=== PATIENT | male | born 1980 ===

== ENCOUNTER → 2020-11-03 08:25 | Outpatient (BNVA) | payer BC, SELFPAY | PROVIDERS: PCP Internal Medicine; Visit Provider Psychiatry & Neurology Neurology ==

== ENCOUNTER → 2021-05-04 08:22 | Outpatient (BNVA) | payer BC, SELFPAY | PROVIDERS: PCP Internal Medicine; Visit Provider Psychiatry & Neurology Neurology ==

== ENCOUNTER → 2021-08-24 13:16 | Outpatient (BNVA) | payer SELFPAY | PROVIDERS: PCP Internal Medicine; Visit Provider Internal Medicine | DX: Z02.79 Encounter for issue of other medical certificate (principal) ==

== ENCOUNTER → 2021-12-22 15:45 | Outpatient (BNVA) | payer BC, SELFPAY | PROVIDERS: PCP Internal Medicine; Referring Provider Internal Medicine; Visit Provider Surgery | DX: L98.9 Disorder of the skin and subcutaneous tissue, unspecified (principal) ==

== ENCOUNTER 2022-01-19 10:55 | Outpatient (REF) | payer BC, SELFPAY | END 2022-01-19 10:56 | disposition home or self-care (01) | LOC: HO.LAB 10:55 | PROVIDERS: PCP Internal Medicine; Visit Provider Surgery | DX: L98.9 Disorder of the skin and subcutaneous tissue, unspecified (principal) | CPT/HCPCS: 11403; 11421; 11422; 88305 ==

== ENCOUNTER 2022-03-26 04:55 | Emergency (ER) | payer BC, SELFPAY ==
[2022-03-26 05:04] VITALS: BP 161/108; PULSE 88; RESP 16; TEMP 37.1; O2SAT 97; BMI 42.3
--- NOTE | 2022-03-26 06:03 | ED.EAR ---
HPI - Ear Problem General Chief complaint: Ear Problems Stated complaint: R ear pain (pool water) & sore throat Time Seen by Provider: 03/26/22 05:41 Source: patient Mode of arrival: ambulatory Limitations: no limitations History of Present Illness HPI Narrative: Patient comes to the emergency room complaining of right ear discomfort. Patient states that he has no pain. Patient has a watery sensation moving around his ear. Patient went swimming 4 days ago. Patient denies fever or chills Related Data Previous Rx's Medication Instructions Recorded hydrochlorothiazide 25 mg tablet 25 mg PO DAILY #90 tabs 03/25/21 lisinopril 40 mg tablet 40 mg PO DAILY #90 tabs 03/25/21 carbamide peroxide 6.5 % ear drops 5 drp otic (ear) right Q12H 4 days 03/26/22 (Ear Wax Removal Drops) #15 mL Allergies Allergy/AdvReac Type Severity Reaction Status Date / Time cashew nut [CASHEW NUT] Allergy Severe ANAPHYLAXIS Verified 03/26/22 05:08 nut - unspecified Allergy Severe ANAPHYLAXIS Verified 03/26/22 05:08 [NUT - UNSPECIFIED] FROM UNKNONW NUT Review of Systems Review of Systems: Constitutional : No Weight loss, No Fever, No Chills, No Night Sweats, No Fatigue, No Malaise ENT/Mouth : No Hearing loss, No Ear Pain, No Nasal Congestion, No Sinus Pain, No Hoarseness, No sore throat, No Rhinorrhea, No Swallowing Difficulty, complaining of ear sensation in the right ear with no pain Eyes: No Eye Pain, No Swelling, No Redness, No Foreign Body, No Discharge, No Vision Changes Cardiovascular : No Chest Pain, No SOB, No Dyspnea on Exertion, No Orthopnea, No Edema, No Palpitations Respiratory : No Cough, No Sputum, No Wheezing, No Smoke Exposure, No Dyspnea Gastrointestinal : No Nausea, No Vomiting, No Diarrhea, No Constipation, No abdominal Pain, No Hematochezia, No Melena Genitourinary : no irregular bleeding, No Dysuria, No Urinary Frequency, No Hematuria, No Urinary Incontinence, No Urgency, No Flank Pain, No Urinary Flow Changes, No Hesitancy Musculoskeletal : No joint pain, No Myalgias, No Joint Swelling Skin : No Skin Lesions, No rash Neuro : No Weakness, No Numbness, No Paresthesias, No Loss of Consciousness, No Dizziness, No Headache Psych : No Anxiety/Panic, No Depression, No SI/HI/AH/VH, No Social Issues, Heme/Lymph: No Bruising, No Bleeding,No Lymphadenopathy Endocrine : No Polyuria, No Polydipsia, No Temperature Intolerance [facility], [facility] Past Medical History Medical History Hypertension Morbid obesity Skin lesions Surgical History History of surgical removal of skin lesion Family History Family History Father Diabetes Mother No problems noted. Social History Social History Housing: Apartment Alcohol intake: current Alcohol intake frequency: a few times a month Patient Tobacco Use Status: Current someday Tobacco user Tobacco use type: Cigarette e-Cigarette/Vaping Use: Never Used Second Hand Smoke Exposure: No Advance Directives: No Advance Directives Information Provided: Yes service: No Current occupational status: employed Cognitive needs: No Hearing needs: No Vision needs: No Physical Exam Vital Signs: Vital Signs: Last Vital Signs Temp 98.7 F 03/26/22 05:04 Pulse 88 03/26/22 05:04 Resp 16 03/26/22 05:04 BP 161/108 H 03/26/22 05:04 Pulse Ox 97 03/26/22 05:04 O2 Del Method 03/26/22 05:04 BMI result Body Mass Index 42.3 Const: Other: Appearance: Alert. Oriented X3. No acute distress. Eyes: Pupils equal, round and reactive to light. ENT: Pharynx normal. Left ear canal within normal limits. Right ear canal there is a large amount of cerumen obstructing the whole ear canal. Neck: Normal inspection. Neck supple. No lymph nodes noted. No crepitus CVS: Normal heart rate and rhythm. Pulses normal. Normal S1 and S2 Respiratory: No respiratory distress. Breath sounds normal. No Wheezing. No rales Abdomen: Soft and nontender. No rigidity. No distention. Skin: Skin warm and dry. Normal skin color. Normal skin turgor. Extremities: No lower extremity edema. No Lacerations. No Rash Neuro: Oriented X 3. No motor deficit. No sensory deficit. Moving all extremities. No slurred speech. CN 2 through 12 grossly intact Psych: calm, cooperative, normal affect Course Course Course Narrative: We removed a large amount of cerumen. However, plug of cerumen remains, very dry, difficult to remove. I discussed with the patient that he would be better if he uses Debrox for a few days, then follow up with his primary care physician to have the cerumen removed, then the tympanic membrane can be better visualized. At this time, I do not suspect that the patient has an infection, the ear canal itself looks pink, non erythematous, Discharge Plan Discharge Clinical Impression: Discomfort of right ear Patient Disposition: Home, Self-Care Instructions: Earache (ED) Additional Instructions: Please follow-up with your primary care physician tomorrow. If you have any worsening or new symptoms, please return to the emergency room or call 911 Prescriptions: New Ear Wax Removal Drops 6.5 % drops 5 drp otic (ear) right Q12H 4 Days Qty: 15 0RF No Action hydrochlorothiazide 25 mg tablet 25 mg PO DAILY Qty: 90 8RF lisinopril 40 mg tablet 40 mg PO DAILY Qty: 90 8RF
[2022-03-26 06:12] VITALS: BP 138/78; PULSE 86; RESP 16; TEMP 36.8; O2SAT 98
== END 2022-03-26 06:13 | disposition home or self-care (01) ==
PROVIDERS: Emergency Provider Emergency Medicine; PCP Internal Medicine
DX: H92.01 Otalgia, right ear (principal); H61.21 Impacted cerumen, right ear; F17.210 Nicotine dependence, cigarettes, uncomplicated
CPT/HCPCS: 69209; 99283; 99284

== ENCOUNTER 2022-10-22 13:05 | Emergency (ER) | payer BC, SELFPAY ==
--- NOTE | ~2022-10-22 | XR_ITS ---
EXAMINATION: XR CHEST CLINICAL INFORMATION: Shortness of breath COMPARISON: None TECHNIQUE: 2 views of the chest were obtained. FINDINGS: The cardiac silhouette is normal. There is mild diffuse bronchial wall thickening. There are no areas of consolidation. There are no pleural effusions or pneumothoraces. The bones and soft tissues are unremarkable for the patient's age. XR/XR chest 2V IMPRESSION: Bronchial wall thickening may be infectious and/or inflammatory in etiology.
[2022-10-22 13:18] VITALS: BP 144/100; PULSE 96; O2SAT 99
[2022-10-22 13:23] VITALS: BP 144/85; PULSE 94; RESP 22; TEMP 36.3; O2SAT 96; BMI 46.0
--- NOTE | 2022-10-22 13:28 | ECG_ITS ---
Test Reason : chest pain/sob Blood Pressure : / mmHG Vent. Rate : 095 BPM Atrial Rate : 095 BPM P-R Int : 162 ms QRS Dur : 082 ms QT Int : 354 ms P-R-T Axes : 057 021 033 degrees QTc Int : 444 ms Normal sinus rhythm Normal ECG No previous ECGs available Referred By: Di Fernandez Electronically Signed By:LUNA MORALEZ
--- NOTE | 2022-10-22 13:38 | ED.SOB ---
HPI - SOB/Dyspnea General Chief Complaint: Dyspnea Stated Complaint: SOB ON EXERTION FROM WALKIN CLINIC PER EMS Time Seen by Provider: 10/22/22 13:37 Source: patient, EMS and old records reviewed Mode of arrival: EMS Limitations: no limitations History of Present Illness HPI Narrative: 42-year-old male with history of morbid obesity, RAE, HTN who presents to the ER for evaluation of dyspnea on exertion for the last 1 week. He was seen at an urgent care on Monday where he had a negative chest x-ray was prescribed steroid taper and another medication that is 3 times a day, he cannot recall what it is. He states he is having ongoing shortness of breath with exertion. He reports burning heartburn type pains that come and go as well. No radiation of the pain, nausea or vomiting. He is coughing up phlegm at times. He denies any fever or chills. He is a former smoker. He denies any lower extremity swelling or pain. MD elicited complaint: shortness of breath Onset (ago): week(s) (1) Context: recent illness Timing: intermittent Severity: moderate Exacerbating factors: exertion Relieving factors: rest Associated symptoms: cough, sputum production and chest congestion Treatment prior to arrival: none Related Data Home oxygen amount: none Previous Rx's Medication Instructions Recorded carbamide peroxide 6.5 % ear drops 5 drp otic (ear) right Q12H 4 days 03/26/22 (Ear Wax Removal Drops) #15 mL hydrochlorothiazide 25 mg tablet 25 mg PO DAILY #90 tabs 04/03/22 lisinopril 40 mg tablet 40 mg PO DAILY #90 tabs 04/03/22 Allergies Allergy/AdvReac Type Severity Reaction Status Date / Time cashew nut [CASHEW NUT] Allergy Severe ANAPHYLAXIS Verified 03/26/22 05:08 nut - unspecified Allergy Severe ANAPHYLAXIS Verified 03/26/22 05:08 [NUT - UNSPECIFIED] FROM UNKNONW NUT Review of Systems Review of Systems: Yes all other systems are reviewed and are negative PMFSH Past Medical History Medical History Hypertension Morbid obesity Skin lesions Surgical History History of surgical removal of skin lesion Family History Family History Father Diabetes Mother No problems noted. Social History Social History Housing: Apartment Alcohol intake: current Alcohol intake frequency: a few times a week Patient Tobacco Use Status: Current someday Tobacco user Tobacco use type: Cigarette Smoked in Last 30 Days: No e-Cigarette/Vaping Use: Never Used Second Hand Smoke Exposure: No Use of substances other than those prescribed or required for medical reasons: No Advance Directives: No Advance Directives Information Provided: No service: No Current occupational status: employed Cognitive needs: No Hearing needs: No Vision needs: No Physical Exam Vital Signs: Vital Signs: Last Vital Signs Temp 97.8 F 10/22/22 15:43 Pulse 91 10/22/22 15:43 Resp 19 10/22/22 15:43 BP 148/87 H 10/22/22 15:43 Pulse Ox 93 10/22/22 16:01 O2 Del Method 10/22/22 15:43 BMI result Body Mass Index 46.0 Appearance: Alert. Oriented X3. No acute distress. Eyes: Pupils equal, round and reactive to light. ENT: Pharynx normal. Neck: Normal inspection. Neck supple. CVS: Normal heart rate and rhythm. Pulses normal. Respiratory: No respiratory distress. Breath sounds normal. Abdomen: Soft and nontender. +BS x4 Skin: Skin warm and dry. Normal skin color. Normal skin turgor. No rashes. Extremities: No lower extremity edema. Negative Kevin's sign. Neuro: Oriented X 3. No motor deficit. No sensory deficit. Course Reevaluation(s) Reevaluation #1: Ambulated on room air SpO2 97-93% at the end with some mild dyspnea but no increased work of breathing Medical Decision Making Medical Decision Making MDM Narrative: 42-year-old male presents to the ER for evaluation of shortness of breath on exertion. He is hemodynamically stable and satting well. He has no wheezes on his pulmonary exam. His chest x-ray was reviewed and was negative for pneumonia or any acute process. 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 D-dimer was negative. No clinical evidence of DVT at this time. He passed an ambulatory trial. No hypoxia. He is overweight which may be contributing. He has had recent illnesses with decrease in his physical activity leading to deconditioning. He was advised to slowly increase his physical activity as tolerated follow-up with his primary care doctor. He will continue with previously prescribed medications from the urgent care clinic. He will start to use his previously prescribed albuterol inhaler. Comfortable discharge home with outpatient follow-up. Return precautions discussed. Differential Diagnosis Differential Diagnoses: The differential diagnosis associated with the presentation includes pneumonia, bronchitis, pneumonitis, pleural effusion, ACS or PE less likely Lab Data MDM Lab Attestation statement: I reviewed the patient's lab results. No leukocytosis, no major metabolic derangement. troponin, BNP, D-dimer all unremarkable 10/22/22 14:15 10/22/22 14:15 Labs: Lab Results 10/22/22 10/22/22 10/22/22 Range/Units 14:15 14:15 14:15 WBC 9.4 (4.8-10.8) X10*3/uL RBC 5.59 (4.60-5.80) X10*6/uL Hgb 16.7 (14.0-18.0) g/dl Hct 50.4 (42.0-52.0) % MCV 90.2 (80.0-98.0) fL MCH 29.9 (27.0-33.0) pg MCHC 33.1 (31.0-36.0) g/dl RDW 12.5 (11.0-16.0) % Plt Count 202 (160-400) X10*3/uL MPV 9.7 (9.4-12.4) fL Immature Gran % (Auto) 0.5 H (0.0-0.4) % Neut % (Auto) 81.5 H (45-73) % Lymph % (Auto) 12.9 L (20-40) % [place] % (Auto) 4.2 (2-11) % Eos % (Auto) 0.3 (0-4) % Baso % (Auto) 0.6 (0-2) % Lymph # (Auto) 1.2 (1.2-4.9) X10*3/uL [place] # (Auto) 0.4 (0.1-1.2) X10*3/uL Eos # (Auto) 0.0 (0.0-0.4) X10*3/uL Baso # (Auto) 0.1 (0.0-0.2) X10*3/uL Abs Immat Gran (auto) 0.05 H (0.00-0.03) X10*3/uL Absolute Neuts (auto) 7.7 (2.0-8.3) x10*3/uL Absolute Nucleated RBC 0.000 (0.0-0.012) X10*3/uL Nucleated RBC % (auto) 0.0 (0.0-0.2) /100WBC PT (10.0-13.1) SEC INR (0.9-1.1) APTT (26.0-36.4) SEC D-Dimer High Sensitivty NG/ML Sodium 137 (135-145) mmol/L Potassium 4.8 (3.3-5.1) mmol/L Chloride 102 (96-108) mmol/L Carbon Dioxide 22 (22-29) mmol/L Anion Gap 18 (12-20) BUN 15 (9-16) mg/dL Creatinine 0.93 (0.5-1.4) mg/dL Estim Creat Clear Calc 167.4 Estimated GFR > 60 Random Glucose 137 H (60-115) mg/dL Calcium 9.4 (8.4-10.2) mg/dL Magnesium 1.9 (1.6-2.6) mg/dL Total Bilirubin 0.7 (0.0-1.0) mg/dL AST 50 H (5-37) U/L ALT 50 H (0-40) U/L Alkaline Phosphatase 72 (39-117) U/L Troponin I High Sens (<3.5-35.0) ng/L B-Natriuretic Peptide < 10 (<100) pg/mL Total Protein 7.1 (6.5-8.0) g/dL Albumin 4.1 (3.5-5.0) g/dL COVID-19 (SIL) (Negative) COVID-19 Clin Com 10/22/22 10/22/22 10/22/22 Range/Units 14:15 14:15 14:35 WBC (4.8-10.8) X10*3/uL RBC (4.60-5.80) X10*6/uL Hgb (14.0-18.0) g/dl Hct (42.0-52.0) % MCV (80.0-98.0) fL MCH (27.0-33.0) pg MCHC (31.0-36.0) g/dl RDW (11.0-16.0) % Plt Count (160-400) X10*3/uL MPV (9.4-12.4) fL Immature Gran % (Auto) (0.0-0.4) % Neut % (Auto) (45-73) % Lymph % (Auto) (20-40) % [place] % (Auto) (2-11) % Eos % (Auto) (0-4) % Baso % (Auto) (0-2) % Lymph # (Auto) (1.2-4.9) X10*3/uL [place] # (Auto) (0.1-1.2) X10*3/uL Eos # (Auto) (0.0-0.4) X10*3/uL Baso # (Auto) (0.0-0.2) X10*3/uL Abs Immat Gran (auto) (0.00-0.03) X10*3/uL Absolute Neuts (auto) (2.0-8.3) x10*3/uL Absolute Nucleated RBC (0.0-0.012) X10*3/uL Nucleated RBC % (auto) (0.0-0.2) /100WBC PT 10.9 (10.0-13.1) SEC INR 1.0 (0.9-1.1) APTT 31.2 (26.0-36.4) SEC D-Dimer High Sensitivty 214 NG/ML Sodium (135-145) mmol/L Potassium (3.3-5.1) mmol/L Chloride (96-108) mmol/L Carbon Dioxide (22-29) mmol/L Anion Gap (12-20) BUN (9-16) mg/dL Creatinine (0.5-1.4) mg/dL Estim Creat Clear Calc Estimated GFR Random Glucose (60-115) mg/dL Calcium (8.4-10.2) mg/dL Magnesium (1.6-2.6) mg/dL Total Bilirubin (0.0-1.0) mg/dL AST (5-37) U/L ALT (0-40) U/L Alkaline Phosphatase (39-117) U/L Troponin I High Sens < 3.5 (<3.5-35.0) ng/L B-Natriuretic Peptide (<100) pg/mL Total Protein (6.5-8.0) g/dL Albumin (3.5-5.0) g/dL COVID-19 (SIL) Negative (Negative) COVID-19 Clin Com See Note Independent Interpretation I performed an independent interpretation of an: Plain X-Ray Interpretation: chest x-ray reviewed, no evidence of acute infiltrate or effusion. EKG reviewed - normal sinus rhythm, ventricular rate 95 beats per minute, normal QTC, normal MO interval, no ST segment elevations or depressions. Radiology Impression Discussion of test interpretation with radiology: I have reviewed the radiologist's reading. Radiologist Impression: EXAMINATION: XR CHEST CLINICAL INFORMATION: Shortness of breath COMPARISON: None TECHNIQUE: 2 views of the chest were obtained. FINDINGS: The cardiac silhouette is normal. There is mild diffuse bronchial wall thickening. There are no areas of consolidation. There are no pleural effusions or pneumothoraces. The bones and soft tissues are unremarkable for the patient's age. XR/XR chest 2V IMPRESSION: Bronchial wall thickening may be infectious and/or inflammatory in etiology. Tests considered The following testing was considered but not selected: CTA considered, however given sxs and CXR findings most likey due to deconditioning and acute viral process Prescription Management I considered prescription management with: Antibiotic Chronic Conditions Patient?s care impacted by: Other (obseity) Critical Care Time Critical Care Time Critical Care Time: No Discharge Plan Discharge Clinical Impression: Shortness of breath Patient Disposition: Home, Self-Care Instructions: Shortness of Breath (ED) Additional Instructions: Your lab workup was normal. Your chest x-ray showed some mild bronchial wall thickening that may be due to a viral process. This should resolve with time. There is no pneumonia. Continue the previously prescribed medications from the urgent care clinic. Recommend using your albuterol inhaler 2 puffs every 4 hours until your shortness of breath improves. Rest, slowly increase your physical activity. Follow-up with your primary care doctor. If you develop new or worsening symptoms call 911 or come back to the ER for further evaluation. Prescriptions: No Action hydrochlorothiazide 25 mg tablet 25 mg PO DAILY Qty: 90 3RF lisinopril 40 mg tablet 40 mg PO DAILY Qty: 90 3RF Ear Wax Removal Drops 6.5 % drops 5 drp otic (ear) right Q12H 4 Days Qty: 15 0RF Referrals: Juan Otto MD [Primary Care Provider] - Stand Alone Forms: Work/School Release
[2022-10-22 14:22] VITALS: BP 139/85; PULSE 93; RESP 18; O2SAT 98
[2022-10-22 14:23] LABS: Basophils Absolute Auto 0.1 X10*3/uL (0.0-0.2); Basophils Percent Auto 0.6 % (0-2); Eosinophils Percent Auto 0.3 % (0-4); Hematocrit 50.4 % (42.0-52.0); Hemoglobin 16.7 g/dl (14.0-18.0); Imm Gran Abs Auto 0.05 X10*3/uL (0.00-0.03); Imm Gran Pct Auto 0.5 % (0.0-0.4); Lymphocytes Absolute Auto 1.2 X10*3/uL (1.2-4.9); Lymphocytes Percent Auto 12.9 % (20-40); MANUAL DIFF FLAG NO; Mean Corpuscular HGB Conc 33.1 g/dl (31.0-36.0); Mean Corpuscular Hemoglobin 29.9 pg (27.0-33.0); Mean Corpuscular Volume 90.2 fL (80.0-98.0); Mean Platelet Volume 9.7 fL (9.4-12.4); Monocytes Absolute Auto 0.4 X10*3/uL (0.1-1.2); Monocytes Percent Auto 4.2 % (2-11); Neutrophils Absolute Auto 7.7 x10*3/uL (2.0-8.3); Neutrophils Percent Auto 81.5 % (45-73); Platelet Count 202 X10*3/uL (160-400); Red Blood Count 5.59 X10*6/uL (4.60-5.80); Red Cell Distribution Width 12.5 % (11.0-16.0); White Blood Count 9.4 X10*3/uL (4.8-10.8)
[2022-10-22 14:38] LABS: COVID-19 Test Negative (Negative); IDNOW Serial# BCCEAD1C
[2022-10-22 14:39] LABS: Alanine Aminotransferase 50 U/L (0-40); Albumin Level 4.1 g/dL (3.5-5.0); Alkaline Phosphatase 72 U/L (39-117); Anion Gap 18 (12-20); Aspartate Amino Transferase 50 U/L (5-37); Bilirubin Total 0.7 mg/dL (0.0-1.0); Blood Urea Nitrogen 15 mg/dL (9-16); Calcium 9.4 mg/dL (8.4-10.2); Carbon Dioxide 22 mmol/L (22-29); Chloride 102 mmol/L (96-108); Creatinine Clr Calc Pharmacy 167.4; Estimated Glomerular Filt Rate > 60; Glucose Random 137 mg/dL (60-115); Magnesium 1.9 mg/dL (1.6-2.6); Potassium 4.8 mmol/L (3.3-5.1); Sodium 137 mmol/L (135-145); Total Protein 7.1 g/dL (6.5-8.0)
[2022-10-22 14:44] LABS: B Type Natriuretic Peptide < 10 pg/mL (<100)
[2022-10-22 14:47] LABS: Prothrombin Time 10.9 SEC (10.0-13.1)
[2022-10-22 14:49] LABS: D Dimer High Sensitivity 214 NG/ML; Partial Thromboplastin Time 31.2 SEC (26.0-36.4)
[2022-10-22 14:50] LABS: Troponin-I High Sensitivity < 3.5 ng/L (<3.5-35.0)
[2022-10-22 15:43] VITALS: BP 148/87; PULSE 91; RESP 19; TEMP 36.6; O2SAT 96
[2022-10-22 16:01] VITALS: O2SAT 93
--- NOTE | 2022-10-22 16:01 | PC.NURSE ---
Patient walked with tech from approximately 150ft while being monitored. per report patient O2 sat decreased to 93% and patient did not tolerate well was having increased work of breathing after moving.
[2022-10-24 09:41] LABS: Glucose, Whole Blood 89 mg/dL (60-115)
== END 2022-10-22 16:35 | disposition home or self-care (01) ==
PROVIDERS: Physician Assistant; Physician Assistant Medical; Emergency Provider Emergency Medicine; PCP Internal Medicine
DX: R06.02 Shortness of breath (principal); Z20.822 Contact with and (suspected) exposure to COVID-19; I10 Essential (primary) hypertension; E66.9 Obesity, unspecified; Z68.42 Body mass index [BMI] 45.0-49.9, adult; F17.210 Nicotine dependence, cigarettes, uncomplicated
CPT/HCPCS: 36415; 71046; 80053; 82947; 83735; 83880; 84484; 85025; 85379; 85610; 85730; 87635; 93005; 99283; 99284

== ENCOUNTER 2022-11-04 15:51 | Outpatient (REF) | payer BC, SELFPAY ==
--- NOTE | 2022-11-04 17:23 | PFT_ITS ---
INDICATIONS: Bronchitis. SPIROMETRY: The FEV1 to FVC is 78% with an FEV1 of 4.64 L, which is 99% predicted and FVC of 5.93 L, which is 99% predicted. No bronchodilators were used based on the fact that he had already used bronchodilator a few hours before. Maximum voluntary ventilation 90% predicted. LUNG VOLUMES: Total lung capacity 102% predicted with an expiratory residual volume of 34% predicted. DIFFUSION CAPACITY: DLCO 105% predicted. COMPARISONS: None. INTERPRETATION: No obstructive and no restrictive ventilatory defects have been identified. No significant response to bronchodilator is noted. This is based on the fact that he had already used his inhaler. His maximum voluntary ventilation is within normal limits. Lung volumes are normal except for decrease in the expiratory residual volume secondary to an elevated BMI. Diffusion capacity is within normal limits. Clinical correlation warranted. MD FIOR Coronado/SOFIA / [id number]
== END 2022-11-04 15:52 | disposition home or self-care (01) ==
LOC: HO.RESP 15:51
PROVIDERS: PCP Internal Medicine; Visit Provider Internal Medicine
DX: J40 Bronchitis, not specified as acute or chronic (principal)
CPT/HCPCS: 94010; 94727; 94729

== ENCOUNTER → 2023-01-10 15:00 | Outpatient (BNVA) | payer BC, SELFPAY | PROVIDERS: PCP Internal Medicine; Visit Provider Nurse Practitioner Family ==

== ENCOUNTER 2023-04-10 03:14 | Emergency (ER) | payer BC, SELFPAY ==
--- NOTE | ~2023-04-10 | XR_ITS ---
EXAMINATION: XR CHEST CLINICAL INFORMATION: Shortness of breath COMPARISON: 10/22/2022 TECHNIQUE: Frontal view of the chest was obtained. FINDINGS: Lung volumes are symmetric. No focal consolidation is seen. No evidence of pneumothorax, pleural effusion, or pulmonary edema. The cardiomediastinal contour is unremarkable. No acute osseous findings are seen. XR/XR chest 1V IMPRESSION: No acute cardiopulmonary findings.
[2023-04-10 03:24] VITALS: BP 141/88; PULSE 120; RESP 20; TEMP 36.7; O2SAT 93; BMI 44.9
[2023-04-10 04:07] LABS: Influenza A PCR NEGATIVE (Negative); Influenza B PCR NEGATIVE (Negative); Resp Syncy Virus RNA Qual PCR NEGATIVE (Negative); SARS COV2 PCR INHOUSE NEGATIVE (Negative)
--- NOTE | 2023-04-10 06:55 | ED_ITS ---
HPI - URI/Sore Throat General Chief Complaint: Upper Respiratory Symptoms Stated Complaint: ear pain, cough Time Seen by Provider: 04/10/23 06:31 Source: patient and RN notes reviewed Mode of arrival: ambulatory Limitations: no limitations History of Present Illness HPI Narrative: This is a 42-year-old male, with a past medical history of hypertension and asthma, presenting to the emergency department with complaints cough, left ear pain, nasal congestion, runny nose, and intermittent shortness of breath x1 week. Patient reports that 1 week ago he was outside exposed to a lawn more that you believes exacerbated his hay fever allergies. He states that initially he had a dry cough but has since progressed to a productive cough with yellow/green colored sputum. He also endorses a headache which has since resolved his arrival to the emergency department. He reports chest pain which only occurs with coughing. Denies any chest pain this He denies any fevers, chills, abdominal pain, nausea, or diarrhea. He states that he had a cerumen impaction and 1 of his ears last year and his symptoms feel slightly similar, so he started using Debrox ear drops. He also reports he has been using NyQuil, Tylenol and ibuprofen as needed which is provided him without any relief. No other complaints or concerns at this time. MD elicited complaint: cough, rhinorrhea and nasal congestion Pertinent past history: asthma and seasonal allergies Onset (ago): week(s) Consistency: constant and progressively worsening Severity: moderate Description of mucous: yellow and green Able to tolerate fluids by mouth: Yes Exacerbating factors: deep breaths Relieving factors: nothing Associated symptoms: headache, rhinorrhea, nasal congestion, cough and shortness of breath Treatments prior to arrival: none Related Data Home Medications Medication Instructions Recorded Confirmed albuterol sulfate 90 mcg/actuation 2 puff inhalation Q4-6H PRN 10/24/22 01/10/23 aerosol inhaler fluticasone propionate 50 1 spray intranasal BID 10/24/22 01/10/23 mcg/actuation nasal spray,suspension Previous Rx's Medication Instructions Recorded albuterol sulfate 90 mcg/actuation 2 puff inhalation Q4-6H PRN 01/10/23 aerosol inhaler shortness of breath or wheezing #1 ea budesonide 180 mcg/actuation 2 inh inhalation BID #1 ea 01/10/23 breath activated powder inhaler nicotine (polacrilex) 2 mg gum 2 mg buccal Q2H #50 ea 01/10/23 (Nicorette) nicotine 14 mg/24 hr daily 1 patch transdermal DAILY #14 ea 01/10/23 transdermal patch hydrochlorothiazide 25 mg tablet 25 mg PO DAILY #90 tabs 03/29/23 lisinopril 40 mg tablet 40 mg PO DAILY #90 tabs 03/29/23 azithromycin 250 mg tablet See Rx Instructions PO .COMPLEX #6 04/10/23 tabs benzonatate 200 mg capsule 200 mg PO TID PRN cough #14 caps 04/10/23 Allergies Allergy/AdvReac Type Severity Reaction Status Date / Time cashew nut [CASHEW NUT] Allergy Severe ANAPHYLAXIS Verified 01/10/23 15:08 nut - unspecified Allergy Severe ANAPHYLAXIS Verified 01/10/23 15:08 [NUT - UNSPECIFIED] FROM UNKNONW NUT Review of Systems Review of Systems: Yes all other systems are reviewed and are negative Constitutional: Constitutional: Reports as per [facility] Past Medical History Medical History Hypertension Morbid obesity Skin lesions Surgical History History of surgical removal of skin lesion Family History Family History Father Diabetes Mother No problems noted. Social History Social History Housing: Apartment Alcohol intake: current Alcohol intake frequency: does not drink Patient Tobacco Use Status: Current someday Tobacco user Tobacco use type: Cigarette e-Cigarette/Vaping Use: Never Used Second Hand Smoke Exposure: No Advance Directives: No Advance Directives Information Provided: Yes service: No Current occupational status: employed Cognitive needs: No Hearing needs: No Vision needs: No Physical Exam Vital Signs: Vital Signs: Last Vital Signs Temp 98.0 F 04/10/23 03:24 Pulse 120 H 04/10/23 03:24 Resp 20 04/10/23 03:24 BP 141/88 H 04/10/23 03:24 Pulse Ox 93 04/10/23 03:24 O2 Del Method Room Air 04/10/23 03:24 BMI result Body Mass Index 44.9 Const: General: cooperative, comfortable and no acute distress Orientation/consciousness: patient oriented x3 Limitations: no limitations HEENT: Other: Right ear: TM visualization is completely obscured secondary to cerumen impaction. Left ear cerumen impaction noted Head: Yes normal to inspection, Yes normocephalic and Yes atraumatic Ears: hearing grossly normal bilaterally General nose exam: Normal external nose present Face and sinus: Yes normal facial exam Mouth: Normal oral and palatal mucosa present, oropharynx normal and moist mucous membranes Throat: Yes posterior oropharynx normal Eyes: General: appearance normal, both eyes and all related structures Eyelids: Yes eyelids normal Conjunctivae: conjunctivae normal Sclerae: sclerae normal Pupils: Equal, round and reactive pupils present EOM: EOMs intact bilaterally Neck: Neck: Yes normal visual inspection, Yes full ROM and Yes no lymphadenopathy Lymphatic: no lymphadenopathy noted Chest: Chest palpation & inspection: normal inspection of the chest Resp: Effort & Inspection: normal respiratory effort and able to speak in complete sentences Auscultation: clear to auscultation bilaterally, no crackles, no rales, no rhonchi and no wheezes Cardio: Rate: regular rate Rhythm: regular rhythm Heart sounds: S1 normal heart sound present and S2 normal heart sound present GI: Inspection: Yes normal to inspection Skin: General skin exam: no rashes or lesions noted Trauma: no lacerations or abrasions Wounds: no wounds Neuro: General: patient oriented x3 and moves all extremities Cranial nerves: Yes Equal, round and reactive pupils present Extrem: General: Yes normal to inspection Right upper extremity: normal to inspection Left upper extremity: normal to inspection Right lower extremity: normal to inspection Left lower extremity: normal to inspection Course Reevaluation(s) Reevaluation #1: Bilateral cerumen impaction - was able to irrigate bilateral ears with moderate cerumen expression, no longer impacted. Some cerumen still remains in canal. Advised to continue using the rocks for the next several days, and to avoid Q- tips. Rechecks pulse and oxygen saturation, pulse is 100, oxygen saturation 96% on room air. Given patient is a former smoker, will treat with course of azithromycin and Tessalon. Patient given strict return precautions if any new or worsening symptoms occur. Patient understands and agrees with plan. Patient stable for discharge. Time: 08:00 Medical Decision Making Medical Decision Making MDM Narrative: 42-year-old male, with a past medical history of asthma and hypertension, presenting to the emergency department with complaints of productive cough, left ear pain, nasal congestion runny nose x 1.5 weeks. On arrival, blood pressure mildly hypertensive at 141/88, pulse 120bpm, oxygen saturation 93% on room air. Patient has been trying [id number] cold and flu medications which has provided him without any relief. On examination, bilateral TMs are obscured due to cerumen impaction. Lungs are clear to auscultation bilaterally. Oropharynx is patent. Patient presents with symptoms consistent with bilateral cerumen impaction an URI. Differential diagnoses include pneumonia, influenza, asthma exacerbation, reactive airway disease. Presentation not consistent with chronic cause of cough including GERD, medication side effect, CHF). Plan influenza swab, RSV, COVID. Chest x-ray. Cerumen impaction removal Differential Diagnosis Differential Diagnoses: The differential diagnosis associated with the presentation includes See above Lab Data MDM Lab Attestation statement: I reviewed the patient's lab results. Negative Labs: Lab Results 04/10/23 Range/Units 03:26 Influenza Type A (PCR) NEGATIVE (Negative) Influenza Type B (PCR) NEGATIVE (Negative) RSV RNA Qual (PCR) NEGATIVE (Negative) SARS-CoV-2 RNA (RT-PCR) NEGATIVE (Negative) Radiology Impression Discussion of test interpretation with radiology: I have reviewed the radiologist's reading. Radiologist Impression: EXAMINATION: XR CHEST CLINICAL INFORMATION: Shortness of breath COMPARISON: 10/22/2022 TECHNIQUE: Frontal view of the chest was obtained. FINDINGS: Lung volumes are symmetric. No focal consolidation is seen. No evidence of pneumothorax, pleural effusion, or pulmonary edema. The cardiomediastinal contour is unremarkable. No acute osseous findings are seen. XR/XR chest 1V IMPRESSION: No acute cardiopulmonary findings. ? Dictated By: Jethro Newell MD Procedures Ear Wax Removal Both Ears: Cerumenolytic Used: Colace and 5-10% Sodium Bicarb solution Results: Re-examined: some cerumen remains TM Examination: TM(s) intact, normal appearance Ear Canal Exam: atraumatic Patient Tolerated Procedure: well and no complications Complications: no problems Technique: ear canal irrigated and ear canal curetted Discharge Plan Discharge Clinical Impression: Upper respiratory infection, Bilateral impacted cerumen Patient Disposition: Home, Self-Care Instructions: Upper Respiratory Infection (ED) Additional Instructions: You tested negative for COVID, RSV, and fluid today. Your chest x-ray does not show any pneumonia. We were able to remove a moderate amount of earwax in both of your ears continue using the rocks for the next several days. Avoid using Q-tips as this will make things worse. Drink plenty of fluids get plenty of rest. Take Tylenol and/or Motrin as needed for your symptoms. Take prescribed antibiotic as directed, please complete the entire course even if you are feeling better. I am also giving a medication to help with the cough. Take as needed. If any new or worsening symptoms occur including but not limited to chest pain, shortness of breath, or worsening symptoms, please return for re-evaluation. Prescriptions: New azithromycin 250 mg tablet See Rx Instructions .ROUTE .COMPLEX Qty: 6 0RF Rx Instructions: For 250 mg dose pack: take 500 mg today (day 1), then 250 mg for 4 days (days 2-5) benzonatate 200 mg capsule 200 mg PO TID PRN (Reason: cough) Qty: 14 0RF No Action hydrochlorothiazide 25 mg tablet 25 mg PO DAILY Qty: 90 3RF lisinopril 40 mg tablet 40 mg PO DAILY Qty: 90 3RF fluticasone propionate 50 mcg/actuation spray,suspension 1 spray intranasal BID albuterol sulfate 90 mcg/actuation HFA aerosol inhaler 2 puff inhalation Q4-6H PRN budesonide 180 mcg/actuation aerosol powdr breath activated 2 inh inhalation BID Qty: 1 6RF nicotine 14 mg/24 hr patch 24 hour 1 patch transdermal DAILY Qty: 14 0RF nicotine (polacrilex) [Nicorette] 2 mg gum 2 mg buccal Q2H Qty: 50 0RF albuterol sulfate 90 mcg/actuation HFA aerosol inhaler 2 puff inhalation Q4-6H PRN (Reason: shortness of breath or wheezing) Qty: 1 6RF Stand Alone Forms: Work/School Release
== END 2023-04-10 08:08 | disposition home or self-care (01) ==
PROVIDERS: Emergency Provider Emergency Medicine
DX: J06.9 Acute upper respiratory infection, unspecified (principal); H61.23 Impacted cerumen, bilateral; Z20.822 Contact with and (suspected) exposure to COVID-19; Z20.828 Contact with and (suspected) exposure to other viral communicable diseases; F17.210 Nicotine dependence, cigarettes, uncomplicated; Z71.6 Tobacco abuse counseling
CPT/HCPCS: 0241U; 71045; 99283; 99284

== ENCOUNTER 2023-04-12 09:56 | Outpatient (AMB) | payer BC, SELFPAY ==
--- NOTE | 2023-04-12 09:58 | A.OFFVIS_ITS ---
Intake Vital Signs 04/12/23 09:59 Height 6 ft 2 in Weight 343 lb 14.738 oz BMI 44.2 BP 134/78 Blood Pressure Location Lt brachial Position Sitting Pulse 100 Pulse Source Pulse Oximeter Pulse Oximetry (%) 96 Oxygen Delivery Method Room Air Intake Visit Reasons: Chronic Bronchitis Keg Raiser Required: No Auto Slip Cover Installer: Auto Slip Cover Installer offered & declined Accompanied by: Self / Same As Patient Allergies cashew nut [CASHEW NUT] Allergy (Severe, Verified 04/12/23 10:04) ANAPHYLAXIS nut - unspecified [NUT - UNSPECIFIED] Allergy (Severe, Verified 04/12/23 10:04) ANAPHYLAXIS FROM UNKNONW NUT Medication List - Last Reconciled 04/12/23 by Akua Gifford LPN albuterol sulfate 90 mcg/actuation 2 puffs inhalation Q4-6H PRN albuterol sulfate 90 mcg/actuation 2 puffs inhalation Q4-6H PRN azithromycin For 250 mg dose pack: take 500 mg today (day 1), then 250 mg for 4 days (days 2-5) benzonatate 200 mg PO TID PRN budesonide 180 mcg/actuation 2 inhalations inhalation BID fluticasone propionate 50 mcg/actuation 1 spray intranasal BID hydrochlorothiazide 25 mg PO DAILY lisinopril 40 mg PO DAILY nicotine 1 patch transdermal DAILY nicotine (polacrilex) (Nicorette) 2 mg buccal Q2H HPI Chronic Bronchitis HPI Details Jethro is a pleasant 42 year old current approximately 1/2 ppd smoker with a 20 pack year history. At the last visit he was prescribed symbicort but unfortunately states he never got the medication. He reports using albuterol up to 3 times per day with good effect. He attempted to use the nicotine patch and nicorette gum prescribed at the last visit, but he did not feel it was helpful. He continues to smoke 7-8 cigarettes per day. He also reports recent bronchitic symptoms for the past week which he was evaluated in [facility] ED on 04/10/23, CXR unremarkable, COVID/RSV/FLU negative and prescribed a zpak. He reports improvements in chest congestion, productive cough and dyspnea over the past two days. [facility] Medical History Hypertension Morbid obesity Skin lesions Surgical History History of surgical removal of skin lesion Family History Father Diabetes Mother No problems noted. Social History (Updated 04/12/23 @ 10:06 by Akua Gifford LPN) Housing: Apartment Alcohol intake: current Alcohol intake frequency: does not drink Patient Tobacco Use Status: Current someday Tobacco user Tobacco use type: Cigarette Smoked in Last 30 Days: Yes e-Cigarette/Vaping Use: Never Used Second Hand Smoke Exposure: No service: No Current occupational status: employed Cognitive needs: No Hearing needs: No Vision needs: No Review of Systems Const Denies excessive sweating, Denies fever(s), Denies headache(s) and Denies night sweats Eyes Denies dry eyes, Denies irritation and Denies itchy eyes ENT Reports Normal hearing present, Denies headache(s), Denies nasal congestion, Denies nasal discharge, Denies post nasal drip and Denies sore throat Card Denies chest pain, Denies chest pain at rest, Denies chest pain with activity, Denies leg edema, Reports dyspnea on exertion and Denies paroxysmal nocturnal dyspnea Resp Reports change in phlegm color, Reports chest congestion, Reports cough, Reports excessive phlegm production, Denies pain on inspiration, Denies pain with cough, Reports dyspnea on exertion and Denies stridor Musc Denies myalgias Neuro Reports Normal hearing present and Denies headache(s) Endo Denies excessive sweating [place]/Lymph Denies lymphadenopathy Aller/Immun Denies itchy eyes and Denies seasonal rhinorrhea Physical Exam Vital Signs: Last Vital Signs Pulse 100 04/12/23 09:59 BP 134/78 04/12/23 09:59 Pulse Ox 96 04/12/23 09:59 Oxygen Delivery Method Room Air 04/12/23 09:59 BMI result Body Mass Index 44.2 Const General: cooperative, healthy appearing, comfortable, no acute distress, well developed and alert Nutritional Appearance: obese Orientation/consciousness: patient oriented x3 Limitations: no limitations HEENT Head: Yes normal to inspection, Yes normocephalic and Yes atraumatic Ears: hearing grossly normal bilaterally and external ears normal Eyes General: appearance normal, both eyes and all related structures Eyelids: Yes eyelids normal Sclerae: sclerae normal EOM: EOMs intact bilaterally Neck Neck: Yes normal visual inspection and Yes no lymphadenopathy Lymphatic: no lymphadenopathy noted Chest Chest palpation & inspection: normal inspection of the chest Resp Effort & Inspection: normal respiratory effort, able to speak in complete sentences, no audible wheezes, no stridor, not tachypneic, no tripod positioning and no use of accessory muscles Auscultation: clear to auscultation bilaterally Cardio Jugular venous distension: no JVD Rate: regular rate Rhythm: regular rhythm Skin Other: warm, dry General skin exam: no rashes or lesions noted Neuro General: patient oriented x3 Cranial nerves: Yes Normal hearing present Cognition (Neuro): normal cognition Gait exam (Neuro): Normal gait present Extrem General: Yes normal to inspection, Yes capillary refill normal, Yes no clubbing, cyanosis or edema and Yes no pedal edema Psych Appearance: grossly normal and well kempt Speech and movement: Normal speech and movement present and Clear speech present Affect: normal affect Attitude: cooperative Thought process: Normal thought process present Thought content: Normal thought content present Insight: Good insight present (Psych) Judgement: Good judgement present (Psych) Results Reviewed Results Reviewed: [address] [address] XRay Report Signed Patient: Jethro Rinaldi MR#: [id number] : 1980 Acct:[id number] Age/Sex: 42 / M ADM Date: 04/10/23 Loc: .ED Attending Dr: Ordering Physician: Shadia ED Physician Date of Service: 04/10/23 Procedure(s): XR chest 1V Accession Number(s): [id number] cc: Generic ED Physician~ EXAMINATION: XR CHEST CLINICAL INFORMATION: Shortness of breath COMPARISON: 10/22/2022 TECHNIQUE: Frontal view of the chest was obtained. FINDINGS: Lung volumes are symmetric. No focal consolidation is seen. No evidence of pneumothorax, pleural effusion, or pulmonary edema. The cardiomediastinal contour is unremarkable. No acute osseous findings are seen. XR/XR chest 1V IMPRESSION: No acute cardiopulmonary findings. ? Assessment & Plan Assessment & Plan (1) Asthma: Code(s): J45.909 - Unspecified asthma, uncomplicated (2) Bronchitis: Code(s): J40 - Bronchitis, not specified as acute or chronic (3) Tobacco dependence: Code(s): F17.200 - Nicotine dependence, unspecified, uncomplicated Plan Jethro presents for follow up to review effectiveness of symbicort but unfortunately did not start. Will attempt to resend or trial Breo. Attempted NRT with nicotine patch and gum but did not have any reduction in smoking. He is interested in trialing nicotrol inhaler, will send this in. Patient with current bronchitic symptoms and improving on zpak. Patient aware if symptoms do not resolve to contact office. Will follow up in three months to reassess symptom control with ICS/LABA and review progress with smoking cessation. All questions were answered and patient is in agreement of plan. Medications: New fluticasone furoate-vilanterol 100-25 mcg/dose (Breo Ellipta) 1 inh inhalation DAILY 60 ea 3RF nicotine (Nicotrol) 1 inh inhalation Q2-4H PRN 168 ea 0RF nicotine cravings Discontinued budesonide 180 mcg/actuation Discontinued Reason: None 2 inhalations inhalation BID 1 ea 6RF Coding Level of Care Code Est Pt Level 3 (15055) Diagnoses Asthma J45.909 Bronchitis J40 Tobacco dependence F17.200
[2023-04-12 09:59] VITALS: BP 134/78; PULSE 100; O2SAT 96; BMI 44.2
== END 2023-04-12 10:24 | disposition home or self-care (01) ==
PROVIDERS: Visit Provider Nurse Practitioner Family
DX: J45.909 Unspecified asthma, uncomplicated (principal); F17.200 Nicotine dependence, unspecified, uncomplicated
CPT/HCPCS: 99213

== ENCOUNTER → 2023-04-12 09:56 | Outpatient (BNVA) | payer BC, SELFPAY | PROVIDERS: Visit Provider Nurse Practitioner Family ==

== ENCOUNTER 2023-05-02 12:15 | Outpatient (REF) | payer BC, SELFPAY ==
--- NOTE | ~2023-05-02 | XR_ITS ---
EXAMINATION: XR CHEST CLINICAL INFORMATION: Bronchitis COMPARISON: 04/10/2023, 10/22/2022 TECHNIQUE: 2 views of the chest were obtained. FINDINGS: Heart size is normal. There is no gross pneumothorax. Mild diffuse bronchial wall thickening. Increased mild diffuse lung parenchymal markings. Degenerative changes in the thoracic spine. XR/XR chest 2V IMPRESSION: Mild diffuse bronchial wall thickening. Increased mild diffuse lung parenchymal markings.
== END 2023-05-02 12:16 | disposition home or self-care (01) ==
LOC: HO.XRAY 12:15
PROVIDERS: PCP Internal Medicine; Visit Provider Nurse Practitioner Family
DX: J40 Bronchitis, not specified as acute or chronic (principal)
CPT/HCPCS: 71046

== ENCOUNTER 2023-05-03 08:56 | Outpatient (AMB) | payer BC, SELFPAY ==
[2023-05-03 09:02] VITALS: BP 146/82; PULSE 96; O2SAT 98; BMI 45.3
--- NOTE | 2023-05-03 09:02 | MHC.OFFVIS ---
Intake Vital Signs 05/03/23 09:02 Height 6 ft 2 in Weight 353 lb BMI 45.3 BP 146/82 H Blood Pressure Location Rt brachial Position Sitting Pulse 96 Pulse Source Pulse Oximeter Pulse Oximetry (%) 98 Oxygen Delivery Method Room Air Intake Visit Reasons: Sick visit Chief Program Officer Required: No Radio News Anchor: Radio News Anchor offered & declined Accompanied by: Self / Same As Patient Allergies cashew nut [CASHEW NUT] Allergy (Severe, Verified 05/03/23 09:05) ANAPHYLAXIS nut - unspecified [NUT - UNSPECIFIED] Allergy (Severe, Verified 05/03/23 09:05) ANAPHYLAXIS FROM UNKNONW NUT Medication List - Last Reconciled 05/03/23 by Akua Gifford LPN albuterol sulfate 90 mcg/actuation 2 puffs inhalation Q4-6H PRN albuterol sulfate 90 mcg/actuation 2 puffs inhalation Q4-6H PRN amoxicillin-pot clavulanate 875-125 mg 1 tab PO Q12H azithromycin For 250 mg dose pack: take 500 mg today (day 1), then 250 mg for 4 days (days 2-5) benzonatate 200 mg PO TID PRN fluticasone furoate-vilanterol 100-25 mcg/dose (Breo Ellipta) 1 inh inhalation DAILY fluticasone propion-salmeterol 115-21 mcg/actuation (Advair HFA) 2 puffs inhalation Q12H fluticasone propionate 50 mcg/actuation 1 spray intranasal BID hydrochlorothiazide 25 mg PO DAILY lisinopril 40 mg PO DAILY nicotine 1 patch transdermal DAILY nicotine (Nicotrol) 1 inh inhalation Q2-4H PRN nicotine (polacrilex) (Nicorette) 2 mg buccal Q2H HPI Sick visit HPI Details Jethro is a pleasant 42 year old current approximately 1/2 ppd smoker with a 20 pack year history. At the last visit he was prescribed advair and again the pharmacy reportedly did not receive the prescription. He reports using albuterol up to 3 times per day with good effect. He reports using the nicotrol inhaler with good effect and has not smoked a cigarette in over a week. Today he presents for an acute visit as he started with dry cough, chest congestion, fatigue and dyspnea on exertion. He denies any fever, chills or sick contacts. He was seen on 04/12 for a sick visit and prescribed augmentin, after worsening symptoms while taking azithromycin prescribed from ED. He reports resolution of symptoms from Augmentin, but similar symptoms returned about a week after discontinuing medication. He reports in the past doxycycline has worked well. [facility] Medical History Hypertension Morbid obesity Skin lesions Surgical History History of surgical removal of skin lesion Family History Father Diabetes Mother No problems noted. Social History (Updated 04/12/23 @ 10:06 by Akua Gifford LPN) Housing: Apartment Alcohol intake: current Alcohol intake frequency: does not drink Patient Tobacco Use Status: Current someday Tobacco user Tobacco use type: Cigarette e-Cigarette/Vaping Use: Never Used Second Hand Smoke Exposure: No service: No Current occupational status: employed Cognitive needs: No Hearing needs: No Vision needs: No Review of Systems Const Denies excessive sweating, Denies fever(s), Denies headache(s) and Denies night sweats Eyes Denies dry eyes, Denies irritation and Denies itchy eyes ENT Reports Normal hearing present, Denies headache(s), Denies nasal congestion, Denies nasal discharge, Denies post nasal drip and Denies sore throat Card Denies chest pain, Denies chest pain at rest, Denies chest pain with activity, Denies leg edema, Reports dyspnea on exertion and Denies paroxysmal nocturnal dyspnea Resp Reports change in phlegm color, Reports chest congestion, Reports cough, Reports excessive phlegm production, Denies pain on inspiration, Denies pain with cough, Reports dyspnea on exertion and Denies stridor Musc Denies myalgias Neuro Reports Normal hearing present and Denies headache(s) Endo Denies excessive sweating [place]/Lymph Denies lymphadenopathy Aller/Immun Denies itchy eyes and Denies seasonal rhinorrhea Physical Exam Vital Signs: Last Vital Signs Pulse 96 05/03/23 09:02 BP 146/82 H 05/03/23 09:02 Pulse Ox 98 05/03/23 09:02 Oxygen Delivery Method Room Air 05/03/23 09:02 BMI result Body Mass Index 45.3 Const General: cooperative, healthy appearing, comfortable, no acute distress, well developed and alert Nutritional Appearance: obese Orientation/consciousness: patient oriented x3 Limitations: no limitations HEENT Head: Yes normal to inspection, Yes normocephalic and Yes atraumatic Ears: hearing grossly normal bilaterally and external ears normal Eyes General: appearance normal, both eyes and all related structures Eyelids: Yes eyelids normal Sclerae: sclerae normal EOM: EOMs intact bilaterally Neck Neck: Yes normal visual inspection and Yes no lymphadenopathy Lymphatic: no lymphadenopathy noted Chest Chest palpation & inspection: normal inspection of the chest Resp Effort & Inspection: normal respiratory effort, able to speak in complete sentences, no audible wheezes, no stridor, not tachypneic, no tripod positioning and no use of accessory muscles Auscultation: clear to auscultation bilaterally Cardio Jugular venous distension: no JVD Rate: regular rate Rhythm: regular rhythm Skin Other: warm, dry General skin exam: no rashes or lesions noted Neuro General: patient oriented x3 Cranial nerves: Yes Normal hearing present Cognition (Neuro): normal cognition Gait exam (Neuro): Normal gait present Extrem General: Yes normal to inspection, Yes capillary refill normal, Yes no clubbing, cyanosis or edema and Yes no pedal edema Psych Appearance: grossly normal and well kempt Speech and movement: Normal speech and movement present and Clear speech present Affect: normal affect Attitude: cooperative Thought process: Normal thought process present Thought content: Normal thought content present Insight: Good insight present (Psych) Judgement: Good judgement present (Psych) Results Reviewed Results Reviewed: [address] [address] XRay Report Signed Patient: Jethro Rinaldi MR#: [id number] : 1980 Acct:[id number] Age/Sex: 42 / M ADM Date: 05/02/23 Loc: HO.XRAY Attending Dr: Xiao Madrid NP Ordering Physician: Xiao Madrid NP Date of Service: 05/02/23 Procedure(s): XR chest 2V Accession Number(s): [id number] cc: Juan Otto MD; Xiao Madrid NP~ EXAMINATION: XR CHEST CLINICAL INFORMATION: Bronchitis COMPARISON: 04/10/2023, 10/22/2022 TECHNIQUE: 2 views of the chest were obtained. FINDINGS: Heart size is normal. There is no gross pneumothorax. Mild diffuse bronchial wall thickening. Increased mild diffuse lung parenchymal markings. Degenerative changes in the thoracic spine. XR/XR chest 2V IMPRESSION: Mild diffuse bronchial wall thickening. Increased mild diffuse lung parenchymal markings. Dictated By: Diana Peralta MD Signed By: <Electronically signed by Diana Peralta MD in OV> Assessment & Plan Assessment & Plan (1) Asthma: Code(s): J45.909 - Unspecified asthma, uncomplicated (2) Bronchitis: Code(s): J40 - Bronchitis, not specified as acute or chronic (3) Tobacco dependence: Code(s): F17.200 - Nicotine dependence, unspecified, uncomplicated Plan Jethro presents for an acute visit for return of dyspnea, chest tightness and congestion. Given bronchitic symptoms will treat with doxycycline. Diminished lung sounds throughout, improved after in office duoneb. Respiratory panel sent out for possible COVID/flu/RSV. CXR suggestive of bronchitis. Discussed importance of starting a maintenance inhaler, will resend prescription. 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 Patient aware if symptoms do not resolve to contact office. Will follow up in 4-6 weeks to review response to inhaler. All questions were answered and patient is in agreement of plan. Orders: Orders SARS-CoV2/FLU/RSV 05/03/23 R05.9 - Cough, unspecified Medications: New doxycycline hyclate 100 mg PO BID 20 caps 0RF Refilled fluticasone propion-salmeterol 115-21 mcg/actuation (Advair HFA) 2 puffs inhalation Q12H 1 ea 3RF Coding Level of Care Code Est Pt Level 4 (16291) Diagnoses Asthma J45.909 Bronchitis J40 Tobacco dependence F17.200
== END 2023-05-03 09:44 | disposition home or self-care (01) ==
LOC: HO.HPSW 08:56
PROVIDERS: PCP Internal Medicine; Visit Provider Nurse Practitioner Family
DX: J45.901 Unspecified asthma with (acute) exacerbation (principal); F17.200 Nicotine dependence, unspecified, uncomplicated; J40 Bronchitis, not specified as acute or chronic
CPT/HCPCS: 99214

== ENCOUNTER 2023-05-03 12:43 | Outpatient (REF) | payer BC, SELFPAY ==
[2023-05-03 14:25] LABS: Influenza A PCR NEGATIVE (Negative); Influenza B PCR NEGATIVE (Negative); Resp Syncy Virus RNA Qual PCR NEGATIVE (Negative); SARS COV2 PCR INHOUSE NEGATIVE (Negative)
== END 2023-05-03 12:44 | disposition home or self-care (01) ==
LOC: HO.LNP 12:43
PROVIDERS: Visit Provider Nurse Practitioner Family
DX: Z20.822 Contact with and (suspected) exposure to COVID-19 (principal); R05.9 Cough, unspecified
CPT/HCPCS: 0241U

== ENCOUNTER 2023-06-16 14:16 | Outpatient (AMB) | payer BC, SELFPAY ==
[2023-06-16 14:23] VITALS: BP 122/82; PULSE 110; O2SAT 97; BMI 46.0
--- NOTE | 2023-06-16 14:23 | A.OFFPC_ITS ---
Vital Signs 06/16/23 14:23 Height 6 ft 2 in Weight 358 lb BMI 46.0 BP 122/82 Blood Pressure Location Lt brachial Position Sitting Pulse 110 H Pulse Source Pulse Oximeter Pulse Oximetry (%) 97 Oxygen Delivery Method Room Air Intake Visit Reasons: f/u lung infection Pig Machine Operator: Not Required per policy Accompanied by: Self / Same As Patient Allergies cashew nut [CASHEW NUT] Allergy (Severe, Verified 06/16/23 14:24) ANAPHYLAXIS nut - unspecified [NUT - UNSPECIFIED] Allergy (Severe, Verified 06/16/23 14:24) ANAPHYLAXIS FROM UNKNONW NUT Tobacco use date assessed: 11/30/22 Dental Screening Dental Screen Date: 06/16/23 Did you have a dental visit in the last 12 months?: Yes Did you have a dental problem in the last 6 months where you did not have access to dental care?: No Was dental information given to patient?: Patient has dentist HPI f/u lung infection HPI Details missed some time from work due to asthma and needs a work note PFSH Medical History Skin lesions Morbid obesity Hypertension Surgical History History of surgical removal of skin lesion Family History Father Diabetes Mother No problems noted. Social History Housing: Apartment Alcohol intake: current Alcohol intake frequency: does not drink Patient Tobacco Use Status: Current someday Tobacco user Tobacco use type: Cigarette e-Cigarette/Vaping Use: Never Used Second Hand Smoke Exposure: No service: No Current occupational status: employed Cognitive needs: No Hearing needs: No Vision needs: No Questionnaire PHQ-9 Over the last 2 weeks, how often have you been bothered by any of the following problems? 1. Little interest or pleasure in doing things: not at all 2. Feeling down, depressed, or hopeless: not at all 3. Trouble falling or staying asleep, or sleeping too much: not at all 4. Feeling tired or having little energy: not at all 5. Poor appetite or overeating: not at all 6. Feeling bad about yourself - or that you are a failure or have let yourself or your family down: not at all 7. Trouble concentrating on things, such as reading the newspaper or watching television: not at all 8. Moving or speaking so slowly that other people could have noticed. Or the opposite - being so fidgety or restless that you have been moving around a lot more than usual: not at all 9. Thoughts that you would be better off or of hurting yourself in some way: not at all Total score: 0 Depression Screening Interpretation: Negative Depression Screening Done: Yes Source: Developed by Drs. Ben Aldrich, Dianna Thomas, Mansoor Nevarez and colleagues, with an educational isabelle from [employer]. Thrive Questionnaire Date Thrive assessed: 06/16/23 I am a: Patient What is your living situation today?: I have a steady place to live Within the past 12 months, did the food you bought not last and you didn't have the money to get more?: Never true Within the past 12 months, did you worry whether your food would run out before you got money to buy more?: Never true Do you have trouble paying for medicines?: No Do you have trouble getting transportation to medical appointments?: No Do you have trouble paying your heating and electricity bill?: No Do you have trouble taking care of your child, family member or friend?: No Do you have trouble with day-to-day activities such as bathing, preparing meals, shopping, managing finances, etc.?: No Are you currently unemployed and looking for a job?: No Are you interested in more education?: No Please select the resources that you would like help with: None AUDIT C Alcohol Use Questionnaire (AUDIT-C) 1. How often do you have a drink containing alcohol?: 2-4 times a month 2. How many drinks containing alcohol do you have on a typical day when you are drinking?: 1 or 2 3. How often do you have six or more drinks on one occasion?: Never Total Score: 2 Score Reviewed/Action Taken: Yes NOREEN-7 AMB Questionnaire NOREEN-7 Date NOREEN - 7 assessed: 06/16/23 Feeling nervous, anxious, or on edge: 0 = Not at all Not being able to stop or control worryin = Not at all Worrying too much about different things: 0 = Not at all Trouble relaxin = Not at all Being so restless that it is hard to sit still: 0 = Not at all Becoming easily annoyed or irritable: 0 = Not at all Feeling afraid as if something awful might happen: 0 = Not at all Total NOREEN-7 score (0-4 normal; 5-9 mild; 10-14 moderate; 15-21 severe): 0 Source: Developed by Drs. Ben Aldrich, Dianna Thomas, Mansoor Nevarez and colleagues, with an educational isabelle from [employer]. Review of Systems Const Denies chills, Denies headache(s) and Denies weight loss ENT Denies headache(s) Card Denies chest pain, Denies syncope, Denies irregular heart rhythm and Denies dyspnea Resp Denies chest congestion, Denies cough and Denies dyspnea GI Denies abdominal pain, Denies change in stool character, Denies nausea and Denies vomiting Musc Denies deformity and Denies joint swelling Neuro Denies syncope and Denies headache(s) Physical exam (Primary Care) Vital Signs: Last Vital Signs Pulse 110 H 06/16/23 14:23 BP 122/82 06/16/23 14:23 Pulse Ox 97 06/16/23 14:23 Oxygen Delivery Method Room Air 06/16/23 14:23 BMI result Body Mass Index 46.0 Tobacco/Smoking Status: Tobacco use Status Tobacco use date assessed 11/30/22 06/16/23 14:31 Patient Tobacco Use Status Current someday Tobacco 06/16/23 14:31 Tobacco use type Cigarette 06/16/23 14:31 e-Cigarette/Vaping Use Never Used 06/16/23 14:31 PHQ-9: PHQ-9 Score PHQ-9: Total score 0 06/16/23 14:31 Depression Screening Interpretation: Negative Thrive Assessment: Date of Thrive Assessment Date Thrive assessed 06/16/23 06/16/23 14:31 Const General: cooperative, comfortable, no acute distress and alert Neck Neck: Yes no lymphadenopathy Thyroid: Thyroid normal Resp Effort & Inspection: normal respiratory effort Auscultation: clear to auscultation bilaterally Percussion: percussion normal Cardio Jugular venous distension: no JVD Palpation: normal PMI Rate: regular rate Rhythm: regular rhythm Heart sounds: S1 normal heart sound present and S2 normal heart sound present GI Inspection: Yes normal to inspection Palpation (GI): No hepatosplenomegaly present Skin General skin exam: no rashes or lesions noted Extrem General: Yes no clubbing, cyanosis or edema Assessment and Plan Assessment & Plan (1) Asthma: Code(s): J45.909 - Unspecified asthma, uncomplicated Plan: improved Coding Level of Care Code Est Pt Level 3 (36786) Diagnoses Asthma J45.909 Additional Codes PHQ-9 - 28662 - PHQ-9 Billing: ([id number])
== END 2023-06-16 14:37 | disposition home or self-care (01) ==
PROVIDERS: PCP Internal Medicine; Visit Provider Internal Medicine
DX: J45.909 Unspecified asthma, uncomplicated (principal)
CPT/HCPCS: 99213

== ENCOUNTER 2023-06-20 15:30 | Outpatient (AMB) | payer BC, SELFPAY ==
[2023-06-20 15:35] VITALS: BP 138/74; PULSE 99; O2SAT 97; BMI 47.1
--- NOTE | 2023-06-20 15:35 | A.OFFVIS_ITS ---
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 Operator: Steam Shovel Operator offered & declined Accompanied by: Self / Same As Patient Allergies cashew nut [CASHEW NUT] Allergy (Severe, Verified 06/20/23 15:39) ANAPHYLAXIS nut - unspecified [NUT - UNSPECIFIED] Allergy (Severe, Verified 06/20/23 15:39) ANAPHYLAXIS FROM UNKNONW NUT Medication List - Last Reconciled 06/20/23 by Akua Gifford LPN albuterol sulfate 90 mcg/actuation 2 puffs inhalation Q4-6H PRN fluticasone propion-salmeterol 115-21 mcg/actuation (Advair HFA) 2 puffs inhalation Q12H hydrochlorothiazide 25 mg PO DAILY lisinopril 40 mg PO DAILY HPI 6 week f/u HPI Details Jethro is a pleasant 42 year old current approximately 1/2 ppd smoker with a 20 pack year history with underlying history of asthma. He was started on Advair with suboptimal response. At the last visit he was placed on doxycyline and reports significant improvements in symptoms, however continues with dyspnea on exertion. [facility] Medical History Skin lesions Morbid obesity Hypertension Surgical History History of surgical removal of skin lesion Family History Father Diabetes Mother No problems noted. Social History (Updated 06/20/23 @ 15:42 by Akua Gifford LPN) Housing: Apartment Alcohol intake: current Alcohol intake frequency: does not drink Patient Tobacco Use Status: Current someday Tobacco user Tobacco use type: Cigarette e-Cigarette/Vaping Use: Never Used Second Hand Smoke Exposure: No service: No Current occupational status: employed Cognitive needs: No Hearing needs: No Vision needs: No Review of Systems Const Denies excessive sweating, Denies fever(s), Denies headache(s) and Denies night sweats Eyes Denies dry eyes, Denies irritation and Denies itchy eyes ENT Reports Normal hearing present, Denies headache(s), Denies nasal congestion, Denies nasal discharge, Denies post nasal drip and Denies sore throat Card Denies chest pain, Denies chest pain at rest, Denies chest pain with activity, Denies leg edema, Reports dyspnea on exertion and Denies paroxysmal nocturnal dyspnea Resp Denies pain on inspiration, Denies pain with cough, Reports dyspnea on exertion and Denies stridor Musc Denies myalgias Neuro Reports Normal hearing present and Denies headache(s) Endo Denies excessive sweating [place]/Lymph Denies lymphadenopathy Aller/Immun Denies itchy eyes and Denies seasonal rhinorrhea Physical Exam Vital Signs: Last Vital Signs Pulse 99 06/20/23 15:35 BP 138/74 06/20/23 15:35 Pulse Ox 97 06/20/23 15:35 Oxygen Delivery Method Room Air 06/20/23 15:35 BMI result Body Mass Index 47.1 Const General: cooperative, healthy appearing, comfortable, no acute distress, well developed and alert Nutritional Appearance: obese Orientation/consciousness: patient oriented x3 Limitations: no limitations HEENT Head: Yes normal to inspection, Yes normocephalic and Yes atraumatic Ears: hearing grossly normal bilaterally and external ears normal Eyes General: appearance normal, both eyes and all related structures Eyelids: Yes eyelids normal Sclerae: sclerae normal EOM: EOMs intact bilaterally Neck Neck: Yes normal visual inspection and Yes no lymphadenopathy Lymphatic: no lymphadenopathy noted Chest Chest palpation & inspection: normal inspection of the chest Resp Effort & Inspection: normal respiratory effort, able to speak in complete sentences, no audible wheezes, no cough, no stridor, not tachypneic, no tripod positioning and no use of accessory muscles Auscultation: clear to auscultation bilaterally Cardio Jugular venous distension: no JVD Rate: regular rate Rhythm: regular rhythm Skin Other: warm, dry General skin exam: no rashes or lesions noted Neuro General: patient oriented x3 Cranial nerves: Yes Normal hearing present Cognition (Neuro): normal cognition Gait exam (Neuro): Normal gait present Extrem General: Yes normal to inspection, Yes capillary refill normal, Yes no clubbing, cyanosis or edema and Yes no pedal edema Psych Appearance: grossly normal and well kempt Speech and movement: Normal speech and movement present and Clear speech present Affect: normal affect Attitude: cooperative Thought process: Normal thought process present Thought content: Normal thought content present Insight: Good insight present (Psych) Judgement: Good judgement present (Psych) Assessment & Plan Assessment & Plan (1) Asthma: Code(s): J45.909 - Unspecified asthma, uncomplicated (2) Bronchitis: Code(s): J40 - Bronchitis, not specified as acute or chronic (3) Tobacco dependence: Code(s): F17.200 - Nicotine dependence, unspecified, uncomplicated Plan Will increase Advair and send patient for chest CT, as he still reports dyspnea on exertion and CXR unremarkable. Patient aware if symptoms return/worsen to call the office. Smoking cessation reviewed. Will follow up in 4-6 weeks to review response to inhaler and results of CT chest. All questions were answered and patient is in agreement of plan. Medications: New fluticasone propion-salmeterol 230-21 mcg/actuation (Advair HFA) 2 puffs inhalation Q12H 12 grams 6RF Coding Level of Care Code Est Pt Level 3 (78850) Diagnoses Asthma J45.909 Bronchitis J40 Tobacco dependence F17.200
== END 2023-06-20 16:04 | disposition home or self-care (01) ==
PROVIDERS: PCP Internal Medicine; Visit Provider Nurse Practitioner Family
DX: J45.909 Unspecified asthma, uncomplicated (principal); F17.200 Nicotine dependence, unspecified, uncomplicated
CPT/HCPCS: 99213

== ENCOUNTER → 2023-06-20 15:30 | Outpatient (BNVA) | payer BC, SELFPAY | PROVIDERS: PCP Internal Medicine; Visit Provider Nurse Practitioner Family ==

== ENCOUNTER 2023-07-26 16:14 | Outpatient (REF) | payer BC, SELFPAY ==
--- NOTE | ~2023-07-26 | CT_ITS ---
EXAMINATION: CT CHEST WITHOUT CONTRAST CLINICAL INFORMATION: Cough. COMPARISON: Chest x-ray 05/02/2023. TECHNIQUE: Multidetector volumetric CT imaging of the chest was done. Axial MIP volume rendering provided. Sagittal and coronal reformatted images were obtained. This CT examination was performed using dose optimization techniques as appropriate, variously including the following: *Automated exposure control *Adjustment of mA and/or kV according to patient size (this includes techniques or standardized protocols for targeted exams where dose is matched to indication/reason for exam; i.e. extremities or head) *Use of iterative reconstruction technique DLP: 508 mGy-cm FINDINGS: LUNGS: Saber-sheath trachea. Mild airway wall thickening. No suspicious pulmonary nodules. No tree-in-bud opacities. No consolidation. MEDIASTINUM: No adenopathy. No aortic aneurysm. No pericardial effusion. CORONARY ARTERY CALCIFICATION: Minimal LAD calcium. PLEURA: There is no pleural effusion. No pleural mass or thickening. AXILLA: No lymphadenopathy. UPPER ABDOMEN: Hepatic steatosis. OSSEOUS STRUCTURES: Mild degenerative changes in the thoracic spine. CT/CT chest wo IV con IMPRESSION: Saber-sheath trachea and mild diffuse airway wall thickening consistent with chronic obstructive pulmonary disease. No findings of emphysema. Correlate with smoking/exposure history and pulmonary function tests. No evidence of acute bronchiolitis or pneumonia. Minimal LAD calcium. Recommend correlation with cardiac risk factors. Fleischner guidelines were followed.
== END 2023-07-26 16:15 | disposition home or self-care (01) ==
LOC: HO.CT 16:14
PROVIDERS: PCP Internal Medicine; Visit Provider Nurse Practitioner Family
DX: R05.9 Cough, unspecified (principal)
CPT/HCPCS: 71250

== ENCOUNTER 2023-08-01 14:28 | Outpatient (AMB) | payer BC, SELFPAY ==
--- NOTE | 2023-08-01 14:34 | A.OFFVIS_ITS ---
Intake Vital Signs 08/01/23 14:35 Height 6 ft 2 in Weight 361 lb BMI 46.3 BP 138/78 Blood Pressure Location Rt brachial Position Sitting Pulse 97 Pulse Source Pulse Oximeter Pulse Oximetry (%) 96 Oxygen Delivery Method Room Air Intake Visit Reasons: cough : f/u after CT Assisted Living Care Manager: Assisted Living Care Manager offered & declined Accompanied by: Self / Same As Patient Allergies cashew nut [CASHEW NUT] Allergy (Severe, Verified 08/01/23 14:43) ANAPHYLAXIS nut - unspecified [NUT - UNSPECIFIED] Allergy (Severe, Verified 08/01/23 14:43) ANAPHYLAXIS FROM UNKNONW NUT Medication List - Last Reconciled 08/01/23 by Akua Gifford LPN albuterol sulfate 90 mcg/actuation 2 puffs inhalation Q4-6H PRN fluticasone propion-salmeterol 230-21 mcg/actuation (Advair HFA) 2 puffs inhalation Q12H hydrochlorothiazide 25 mg PO DAILY lisinopril 40 mg PO DAILY HPI cough : f/u after CT HPI Details Jethro is a pleasant 42 year old current approximately 1/2 ppd smoker with a 20 pack year history with underlying history of asthma and RAE on CPAP therapy. He has been moderately controlled on Advair and will be switching to the higher dose when his current prescription is completed. At this time, he denies any cough, wheezing or chest tightness. He continues to report moderate dyspnea on minimal exertion. Today he presents to review results of chest CT. [facility] Medical History Skin lesions Morbid obesity Hypertension Surgical History History of surgical removal of skin lesion Family History Father Diabetes Mother No problems noted. Social History (Updated 08/01/23 @ 14:50 by Akua Gifford LPN) Housing: Apartment Alcohol intake: current Alcohol intake frequency: does not drink Patient Tobacco Use Status: Current someday Tobacco user Tobacco use type: Cigarette Cigarette Packs Per Day: 1 Smoked in Last 30 Days: Yes e-Cigarette/Vaping Use: Never Used Second Hand Smoke Exposure: No service: No Current occupational status: employed Cognitive needs: No Hearing needs: No Vision needs: No Review of Systems Const Denies excessive sweating, Denies fever(s), Denies headache(s) and Denies night sweats Eyes Denies dry eyes, Denies irritation and Denies itchy eyes ENT Reports Normal hearing present, Denies headache(s), Denies nasal congestion, Denies nasal discharge, Denies post nasal drip and Denies sore throat Card Denies chest pain, Denies chest pain at rest, Denies chest pain with activity, Denies leg edema, Reports dyspnea on exertion and Denies paroxysmal nocturnal dyspnea Resp Denies pain on inspiration, Denies pain with cough, Reports dyspnea on exertion and Denies stridor Musc Denies myalgias Neuro Reports Normal hearing present and Denies headache(s) Endo Denies excessive sweating [place]/Lymph Denies lymphadenopathy Aller/Immun Denies itchy eyes and Denies seasonal rhinorrhea Physical Exam Vital Signs: Last Vital Signs Pulse 97 08/01/23 14:35 BP 138/78 08/01/23 14:35 Pulse Ox 96 08/01/23 14:35 Oxygen Delivery Method Room Air 08/01/23 14:35 BMI result Body Mass Index 46.3 Const General: cooperative, healthy appearing, comfortable, no acute distress, well developed and alert Nutritional Appearance: obese Orientation/consciousness: patient oriented x3 Limitations: no limitations HEENT Head: Yes normal to inspection, Yes normocephalic and Yes atraumatic Ears: hearing grossly normal bilaterally and external ears normal Eyes General: appearance normal, both eyes and all related structures Eyelids: Yes eyelids normal Sclerae: sclerae normal EOM: EOMs intact bilaterally Neck Neck: Yes normal visual inspection and Yes no lymphadenopathy Lymphatic: no lymphadenopathy noted Chest Chest palpation & inspection: normal inspection of the chest Resp Effort & Inspection: normal respiratory effort, able to speak in complete sentences, no audible wheezes, no cough, no stridor, not tachypneic, no tripod positioning and no use of accessory muscles Auscultation: clear to auscultation bilaterally Cardio Jugular venous distension: no JVD Rate: regular rate Rhythm: regular rhythm Skin Other: warm, dry General skin exam: no rashes or lesions noted Neuro General: patient oriented x3 Cranial nerves: Yes Normal hearing present Cognition (Neuro): normal cognition Gait exam (Neuro): Normal gait present Extrem General: Yes normal to inspection, Yes capillary refill normal, Yes no clubbing, cyanosis or edema and Yes no pedal edema Psych Appearance: grossly normal and well kempt Speech and movement: Normal speech and movement present and Clear speech present Affect: normal affect Attitude: cooperative Thought process: Normal thought process present Thought content: Normal thought content present Insight: Good insight present (Psych) Judgement: Good judgement present (Psych) Assessment & Plan Assessment & Plan (1) Dyspnea on minimal exertion: Code(s): R06.09 - Other forms of dyspnea (2) Asthma: Code(s): J45.909 - Unspecified asthma, uncomplicated (3) Tobacco dependence: Code(s): F17.200 - Nicotine dependence, unspecified, uncomplicated Plan Patient presents to review CT chest results. Unfortunately, the CT has not been read. Will reach out to radiology for report and review with patient when available. Advised patient to continue regimen of the higher dose of Advair for continued dyspnea. Will also send for echo to [facility] for cardiac etiology contributing to dyspnea. Patient did report intermittent BLE and occasional orthopnea, however attributes it to lower back pain. Patient aware if symptoms return/worsen to call the office. Discussed smoking cessation and he is interested in a referral, will enter this. Will follow up in 4-6 weeks to review response to increased dose of inhaler and echo results. All questions were answered and patient is in agreement of plan. Orders: Orders CA echo transthoracic complete Today R06.09 - Other forms of dyspnea Referrals Smoking Cessation Counseling F17.200 - Nicotine dependence, unspecified, uncomplicated Coding Level of Care Code Est Pt Level 3 (41516) Diagnoses Dyspnea on minimal exertion R06.09 Asthma J45.909 Tobacco dependence F17.200
[2023-08-01 14:35] VITALS: BP 138/78; PULSE 97; O2SAT 96; BMI 46.3
== END 2023-08-01 15:17 | disposition home or self-care (01) ==
PROVIDERS: PCP Internal Medicine; Referring Provider Internal Medicine; Visit Provider Nurse Practitioner Family
DX: R06.09 Other forms of dyspnea (principal); J45.909 Unspecified asthma, uncomplicated; F17.200 Nicotine dependence, unspecified, uncomplicated
CPT/HCPCS: 99213

== ENCOUNTER → 2023-08-01 14:28 | Outpatient (BNVA) | payer BC, SELFPAY | PROVIDERS: PCP Internal Medicine; Visit Provider Nurse Practitioner Family ==

== ENCOUNTER → 2023-08-23 15:45 | Outpatient (REF) | payer BC, SELFPAY ==
--- NOTE | 2023-08-23 15:49 | CA_ITS ---
Transthoracic Echocardiogram Patient (Last, First, Middle): Jethro Rinaldi R Gender: Male Date of : 1980 Age: 42 Procedure Date: 08/23/2023 Procedure Type: Transthoracic Echocardiogram Location: OP Height: 187.96 cm Weight: 158.76 kg BSA: 2.76 m2 Heart Rate: bpm BP: 145 / 90 mmHg Auctioneer Art: JASON Referring MD: Xiao Madrid EXCAVATING CONTRACTOR Product Development Manager: Nicholas Sherwood MD Symptoms: R06.09 - Other forms of dyspnea Study Quality: Technically Difficult ECG Rhythm: Sinus Conclusions: - 1. Technically limited study, consider definity injection next time 2. LV ejection fraction measured to be 55-60% which is within normal limits with impaired relaxation filling pattern 3. Limited visualization of the cardiac valves with normal cardiac valvular Dopplers Findings Left Ventricle The left ventricle was not well visualized. Normal left ventricular cavity size. The left ventricular systolic function is normal. The visually estimated ejection fraction is between 55-60%. Spectral Doppler is indicative of an impaired relaxation filling pattern. Atria The left atrium is normal in size. Interatrial shunt cannot be excluded. The right atrium was not well visualized. Aortic Valve The aortic valve was not well visualized. There is no aortic valve stenosis. There is no aortic valve regurgitation. Mitral Valve The mitral valve was not well visualized. There is no mitral valve regurgitation. There is no mitral valve stenosis. Pulmonic Valve The pulmonic valve was not well visualized. Tricuspid Valve The tricuspid valve was not well visualized. The right ventricular systolic pressure is 16 mmHg. There is no evidence of pulmonary hypertension. Great Vessels The aorta was not well visualized. The pulmonary artery was not well visualized. Venous The inferior vena cava was not well visualized. The inferior vena cava is normal in size. Pericardium/Pleural The pericardium was not well visualized. Prior Study Comparison No prior study available for comparison. Recommendations, Care & Conclusions Recommend contrast in the future to improve endocardial definition. Measurements 2D Linear Measurements IVSd: 1.30 0.6-0.9/0.6-1.0 cm LVIDd: 4.53 3.9-5.3/4.2-5.9 cm LVIDd Index: 1.64 2.4-3.2/2.2-3.1 cm/m2 LVIDs: 3.09 2.0-3.6 cm LVPWd: 1.37 0.7-1.1 cm Ao Root: 3.50 2.1-3.5 cm LA Diam: 3.90 2.7-3.8/3.0-4.0 cm LAIDs Index: 1.41 1.5-2.3 cm/m2 LV Mass: 291.50 67-162/88-224 g LV Mass Index: 105.62 43-95/49-115 g/m2 LVOT Diam: 3.00 3.0+(-)1.3 cm 2D Systolic Function EF 4C: 57.20 >55% EF 2C: 56.30 >55% EF BiP: 55.10 >55% Mitral Valve MV Pk E: 0.69 MV PK A: 0.95 MV Decel Time: 75.00 E/A: 0.70 E'Lateral: 12.00 E'Medial: 8.16 E/E' Med: 8.50 E/E' Lat: 5.80 PHT: 22.00 MVA PHT: 10.00 Decel Mono: 9.16 Aortic Valve AoV Pk Andrey: 1.34 AoV Mn Andrey: 0.89 AoV VTI: 0.22 AoV Pk Grad: 7.00 Aov Mn Grad: 4.00 ELVIN Cont.VTI: 6.12 LVOT LVOT Pk Andrey: 1.17 LVOT Mn Andrey: 0.76 LVOT VTI: 0.19 LVOT Pk Grad: 5.00 LVOT Mn Grad: 3.00 LVOT Diam: 3.00 LVOT Area: 7.07 Diastolic Function MV Pk E: 0.69 MV Pk A: 0.95 E/A: 0.70 E'Medial: 8.16 E/E' Med: 8.50 E' Laterial: 12.00 E/E' Lat: 5.80 Right Ventricle TAPSE (mm): 23.00 Tricuspid Valve TR Pk Andrey: 1.77 TR Pk Grad: 13.00 RA Press: 3.00 RVSP: 16.00 Great Vessels Aorta Ao Root-2D: 3.50 2.0-3.7 cm Ao Asc: 3.50 2.1-3.4 cm Pulmonary Valve PV Pk Andrey: 1.13 Peak PV Grad: 5.00 Updated in Other Vendor System with Status of Final Nicholas Sherwood MD electronically signed on 08/24/2023 1:45:01 PM with status of Final
== END ==
LOC: HO.CARD 15:45
PROVIDERS: PCP Internal Medicine; Visit Provider Nurse Practitioner Family
DX: R06.09 Other forms of dyspnea (principal)
CPT/HCPCS: 93306

== ENCOUNTER → 2023-08-23 15:49 | Outpatient (BNV) | payer BC, SELFPAY | PROVIDERS: PCP Internal Medicine; Visit Provider Internal Medicine Cardiovascular Disease | DX: R06.09 Other forms of dyspnea (principal) | CPT/HCPCS: 93306 ==

== ENCOUNTER 2023-09-01 15:01 | Outpatient (AMB) | payer BC, SELFPAY ==
--- NOTE | 2023-09-01 15:25 | A.OFFVIS_ITS ---
Intake Vital Signs 09/01/23 15:26 Height 6 ft 2 in Weight 359 lb BMI 46.1 Pulse 104 H Pulse Source Pulse Oximeter Pulse Oximetry (%) 97 Oxygen Delivery Method Room Air Intake Visit Reasons: cough: f/u results on cardiology Rail Loader Required: No Clinical Marketing Manager: Clinical Marketing Manager offered & declined Accompanied by: Self / Same As Patient Allergies cashew nut [CASHEW NUT] Allergy (Severe, Verified 09/01/23 15:29) ANAPHYLAXIS nut - unspecified [NUT - UNSPECIFIED] Allergy (Severe, Verified 09/01/23 15:29) ANAPHYLAXIS FROM UNKNONW NUT Medication List - Last Reconciled 09/01/23 by Akua Gifford LPN albuterol sulfate 90 mcg/actuation 2 puffs inhalation Q4-6H PRN fluticasone propion-salmeterol 230-21 mcg/actuation (Advair HFA) 2 puffs inhalation Q12H hydrochlorothiazide 25 mg PO DAILY lisinopril 40 mg PO DAILY varenicline (Chantix Starting Month Box) PO PER PKG DIR HPI cough: f/u results on cardiology HPI Details Jethro is a pleasant 42 year old current approximately 1/2 ppd smoker with a 20 pack year history with underlying history of asthma and RAE on CPAP therapy. He has been moderately controlled on Advair. He feels he is back to baseline in regards to respiratory symptoms. He continues to report dyspnea with moderate exertion. Denies wheezing, cough or chest tightness. He recently was started on Chantix and is hopeful he can quit smoking. Today he presents to review echo results. [facility] Medical History Skin lesions Morbid obesity Hypertension Surgical History History of surgical removal of skin lesion Family History Father Diabetes Mother No problems noted. Social History (Updated 09/01/23 @ 15:31 by Akua Gifford LPN) Housing: Apartment Alcohol intake: current Alcohol intake frequency: does not drink Patient Tobacco Use Status: Current someday Tobacco user Tobacco use type: Cigarette Cigarette Packs Per Day: 1 e-Cigarette/Vaping Use: Never Used Second Hand Smoke Exposure: No service: No Current occupational status: employed Cognitive needs: No Hearing needs: No Vision needs: No Review of Systems Const Denies excessive sweating, Denies fever(s), Denies headache(s) and Denies night sweats Eyes Denies dry eyes, Denies irritation and Denies itchy eyes ENT Reports Normal hearing present, Denies headache(s), Denies nasal congestion, Denies nasal discharge, Denies post nasal drip and Denies sore throat Card Denies chest pain, Denies chest pain at rest, Denies chest pain with activity, Denies leg edema, Reports dyspnea on exertion and Denies paroxysmal nocturnal dyspnea Resp Denies pain on inspiration, Denies pain with cough, Reports dyspnea on exertion and Denies stridor Musc Denies myalgias Neuro Reports Normal hearing present and Denies headache(s) Endo Denies excessive sweating [place]/Lymph Denies lymphadenopathy Aller/Immun Denies itchy eyes and Denies seasonal rhinorrhea Physical Exam Vital Signs: Last Vital Signs Pulse 104 H 09/01/23 15:26 Pulse Ox 97 09/01/23 15:26 Oxygen Delivery Method Room Air 09/01/23 15:26 BMI result Body Mass Index 46.1 Const General: cooperative, healthy appearing, comfortable, no acute distress, well developed and alert Nutritional Appearance: obese Orientation/consciousness: patient oriented x3 Limitations: no limitations HEENT Head: Yes normal to inspection, Yes normocephalic and Yes atraumatic Ears: hearing grossly normal bilaterally and external ears normal Eyes General: appearance normal, both eyes and all related structures Eyelids: Yes eyelids normal Sclerae: sclerae normal EOM: EOMs intact bilaterally Neck Neck: Yes normal visual inspection and Yes no lymphadenopathy Lymphatic: no lymphadenopathy noted Chest Chest palpation & inspection: normal inspection of the chest Resp Effort & Inspection: normal respiratory effort, able to speak in complete sentences, no audible wheezes, no cough, no stridor, not tachypneic, no tripod positioning and no use of accessory muscles Auscultation: clear to auscultation bilaterally Cardio Jugular venous distension: no JVD Rate: regular rate Rhythm: regular rhythm Skin Other: warm, dry General skin exam: no rashes or lesions noted Neuro General: patient oriented x3 Cranial nerves: Yes Normal hearing present Cognition (Neuro): normal cognition Gait exam (Neuro): Normal gait present Extrem General: Yes normal to inspection, Yes capillary refill normal, Yes no clubbing, cyanosis or edema and Yes no pedal edema Psych Appearance: grossly normal and well kempt Speech and movement: Normal speech and movement present and Clear speech present Affect: normal affect Attitude: cooperative Thought process: Normal thought process present Thought content: Normal thought content present Insight: Good insight present (Psych) Judgement: Good judgement present (Psych) Results Reviewed Results Reviewed: [address] [address] Cardiology Report Signed Patient: Jethro Rinaldi MR#: [id number] : 1980 Acct:[id number] Age/Sex: 42 / M ADM Date: 08/23/23 Loc: [facility] Attending Dr: Xiao Madrid NP Ordering Physician: Xiao Madrid NP Date of Service: 08/23/23 Procedure(s): CA echo transthoracic complete Accession Number(s): cc: Xiao Madrid NP~ Transthoracic Echocardiogram Patient (Last, First, Middle): Jethro Rinaldi R Gender: Male Date of : 1980 Age: 42 Procedure Date: 08/23/2023 Procedure Type: Transthoracic Echocardiogram Location: OP Height: 187.96 cm Weight: 158.76 kg BSA: 2.76 m2 Heart Rate: bpm BP: 145 / 90 mmHg Labeling Machine Operator: Referring MD: Xiao Madrid NP Project Reservoir Engineer: Nicholas Sherwood MD Symptoms: R06.09 - Other forms of dyspnea Study Quality: Technically Difficult ECG Rhythm: Sinus Conclusions: - 1. Technically limited study, consider definity injection next time 2. LV ejection fraction measured to be 55-60% which is within normal limits with impaired relaxation filling pattern 3. Limited visualization of the cardiac valves with normal cardiac valvular Dopplers Findings Left Ventricle The left ventricle was not well visualized. Normal left ventricular cavity size. The left ventricular systolic function is normal. The visually estimated ejection fraction is between 55-60%. Spectral Doppler is indicative of an impaired relaxation filling pattern. Atria The left atrium is normal in size. Interatrial shunt cannot be excluded. The right atrium was not well visualized. Aortic Valve The aortic valve was not well visualized. There is no aortic valve stenosis. There is no aortic valve regurgitation. Mitral Valve The mitral valve was not well visualized. There is no mitral valve regurgitation. There is no mitral valve stenosis. Pulmonic Valve The pulmonic valve was not well visualized. Tricuspid Valve The tricuspid valve was not well visualized. The right ventricular systolic pressure is 16 mmHg. There is no evidence of pulmonary hypertension. Great Vessels The aorta was not well visualized. The pulmonary artery was not well visualized. Venous The inferior vena cava was not well visualized. The inferior vena cava is normal in size. Pericardium/Pleural The pericardium was not well visualized. Prior Study Comparison No prior study available for comparison. Recommendations, Care & Conclusions Recommend contrast in the future to improve endocardial definition. Measurements 2D Linear Measurements IVSd: 1.30 0.6-0.9/0.6-1.0 cm LVIDd: 4.53 3.9-5.3/4.2-5.9 cm LVIDd Index: 1.64 2.4-3.2/2.2-3.1 cm/m2 LVIDs: 3.09 2.0-3.6 cm LVPWd: 1.37 0.7-1.1 cm Ao Root: 3.50 2.1-3.5 cm LA Diam: 3.90 2.7-3.8/3.0-4.0 cm LAIDs Index: 1.41 1.5-2.3 cm/m2 LV Mass: 291.50 67-162/88-224 g LV Mass Index: 105.62 43-95/49-115 g/m2 LVOT Diam: 3.00 3.0+(-)1.3 cm 2D Systolic Function EF 4C: 57.20 >55% EF 2C: 56.30 >55% EF BiP: 55.10 >55% Mitral Valve MV Pk E: 0.69 MV PK A: 0.95 MV Decel Time: 75.00 E/A: 0.70 E'Lateral: 12.00 E'Medial: 8.16 E/E' Med: 8.50 E/E' Lat: 5.80 PHT: 22.00 MVA PHT: 10.00 Decel [place]: 9.16 Aortic Valve AoV Pk Andrey: 1.34 AoV Mn Andrey: 0.89 AoV VTI: 0.22 AoV Pk Grad: 7.00 Aov Mn Grad: 4.00 ELVIN Cont.VTI: 6.12 LVOT LVOT Pk Andrey: 1.17 LVOT Mn Andrey: 0.76 LVOT VTI: 0.19 LVOT Pk Grad: 5.00 LVOT Mn Grad: 3.00 LVOT Diam: 3.00 LVOT Area: 7.07 Diastolic Function MV Pk E: 0.69 MV Pk A: 0.95 E/A: 0.70 E'Medial: 8.16 E/E' Med: 8.50 E' Laterial: 12.00 E/E' Lat: 5.80 Right Ventricle TAPSE (mm): 23.00 Tricuspid Valve TR Pk Andrey: 1.77 TR Pk Grad: 13.00 RA Press: 3.00 RVSP: 16.00 Great Vessels Aorta Ao Root-2D: 3.50 2.0-3.7 cm Ao Asc: 3.50 2.1-3.4 cm Pulmonary Valve PV Pk Andrey: 1.13 Peak PV Grad: 5.00 Updated in Other Vendor System with Status of Final Nicholas Sherwood MD electronically signed on 08/24/2023 1:45:01 PM with status of Final Assessment & Plan Assessment & Plan (1) Dyspnea on minimal exertion: Code(s): R06.09 - Other forms of dyspnea (2) Asthma: Code(s): J45.909 - Unspecified asthma, uncomplicated (3) Tobacco dependence: Code(s): F17.200 - Nicotine dependence, unspecified, uncomplicated (4) Morbid obesity: Code(s): E66.01 - Morbid (severe) obesity due to excess calories (5) Obstructive sleep apnea: Code(s): G47.33 - Obstructive sleep apnea (adult) (pediatric) Plan Reviewed echo which was a technically difficult study however did not reveal any significant findings. Advised patient to continue current regimen as he reports feeling back to baseline. Commended him on starting Chantix and encouraged to continue. We discussed weight attributing to his dyspnea, which he was agreeable to a referral to weight management. Will enter this. Patient aware if symptoms return/worsen to call the office, otherwise will follow up in 3 months. All questions were answered and patient is in agreement of plan. Orders: Referrals Medical Weight Management Referral E66.01 - Morbid (severe) obesity due to excess calories Coding Level of Care Code Est Pt Level 4 (81302) Diagnoses Dyspnea on minimal exertion R06.09 Asthma J45.909 Tobacco dependence F17.200 Morbid obesity E66.01 Obstructive sleep apnea G47.33
[2023-09-01 15:26] VITALS: PULSE 104; O2SAT 97; BMI 46.1
== END 2023-09-01 16:06 | disposition home or self-care (01) ==
PROVIDERS: PCP Internal Medicine; Visit Provider Nurse Practitioner Family
DX: R06.09 Other forms of dyspnea (principal); J45.909 Unspecified asthma, uncomplicated; F17.200 Nicotine dependence, unspecified, uncomplicated; E66.01 Morbid (severe) obesity due to excess calories; G47.33 Obstructive sleep apnea (adult) (pediatric)
CPT/HCPCS: 99214

== ENCOUNTER → 2023-09-01 15:01 | Outpatient (BNVA) | payer BC, SELFPAY | PROVIDERS: PCP Internal Medicine; Visit Provider Nurse Practitioner Family ==

== ENCOUNTER 2023-09-13 08:51 | Outpatient (AMB) | payer BC, SELFPAY ==
[2023-09-13 08:52] VITALS: BP 146/88; PULSE 96; O2SAT 98; BMI 45.2
--- NOTE | 2023-09-13 08:52 | MHC.PC.OV ---
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: No Medical Staff Services Coordinator: Not Required per policy Accompanied by: Self / Same As Patient Allergies cashew nut [CASHEW NUT] Allergy (Severe, Verified 09/13/23 08:53) ANAPHYLAXIS nut - unspecified [NUT - UNSPECIFIED] Allergy (Severe, Verified 09/13/23 08:53) ANAPHYLAXIS FROM UNKNONW NUT Medication List - Last Reconciled 09/13/23 by Juan Otto MD albuterol sulfate 90 mcg/actuation 2 puffs inhalation Q4-6H PRN fluticasone propion-salmeterol 230-21 mcg/actuation (Advair HFA) 2 puffs inhalation Q12H hydrochlorothiazide 25 mg PO DAILY lisinopril 40 mg PO DAILY varenicline (Chantix Starting Month Box) PO PER PKG DIR Tobacco use date assessed: 09/13/23 Dental Screening Dental Screen Date: 09/13/23 Did you have a dental visit in the last 12 months?: Yes Did you have a dental problem in the last 6 months where you did not have access to dental care?: No Was dental information given to patient?: Patient has dentist HPI needs a referral, hip pain HPI Details right hip pain for 2 weeks; had an xr and pt states it showed right hip crushed . Not sure what that means [facility] Medical History Skin lesions Morbid obesity Hypertension Surgical History History of surgical removal of skin lesion Family History Father Diabetes Mother No problems noted. Social History (Updated 09/01/23 @ 15:31 by Akua Gifford LPN) Housing: Apartment Alcohol intake: current Alcohol intake frequency: does not drink Patient Tobacco Use Status: Current someday Tobacco user Tobacco use type: Cigarette Cigarette Packs Per Day: 1 e-Cigarette/Vaping Use: Never Used Second Hand Smoke Exposure: No service: No Current occupational status: employed Cognitive needs: No Hearing needs: No Vision needs: No Questionnaire PHQ-9 Over the last 2 weeks, how often have you been bothered by any of the following problems? 1. Little interest or pleasure in doing things: not at all 2. Feeling down, depressed, or hopeless: not at all 3. Trouble falling or staying asleep, or sleeping too much: not at all 4. Feeling tired or having little energy: not at all 5. Poor appetite or overeating: not at all 6. Feeling bad about yourself - or that you are a failure or have let yourself or your family down: not at all 7. Trouble concentrating on things, such as reading the newspaper or watching television: not at all 8. Moving or speaking so slowly that other people could have noticed. Or the opposite - being so fidgety or restless that you have been moving around a lot more than usual: not at all 9. Thoughts that you would be better off or of hurting yourself in some way: not at all Total score: 0 Depression Screening Interpretation: Negative Depression Screening Done: Yes Source: Developed by Drs. Ben Aldrich, Dianna Thomas, Mansoor Nevarez and colleagues, with an educational isabelle from [employer]. Thrive Questionnaire Date Thrive assessed: 09/13/23 I am a: Patient What is your living situation today?: I have a steady place to live Within the past 12 months, did the food you bought not last and you didn't have the money to get more?: Never true Within the past 12 months, did you worry whether your food would run out before you got money to buy more?: Never true Do you have trouble paying for medicines?: No Do you have trouble getting transportation to medical appointments?: No Do you have trouble paying your heating and electricity bill?: No Do you have trouble taking care of your child, family member or friend?: No Do you have trouble with day-to-day activities such as bathing, preparing meals, shopping, managing finances, etc.?: No Are you currently unemployed and looking for a job?: No Are you interested in more education?: No Please select the resources that you would like help with: None THRIVE Score: 0 AUDIT C Alcohol Use Questionnaire (AUDIT-C) 1. How often do you have a drink containing alcohol?: 2-4 times a month 2. How many drinks containing alcohol do you have on a typical day when you are drinking?: 1 or 2 3. How often do you have six or more drinks on one occasion?: Never Total Score: 2 Score Reviewed/Action Taken: Yes NOREEN-7 AMB Questionnaire NOREEN-7 Date NOREEN - 7 assessed: 09/13/23 Feeling nervous, anxious, or on edge: 0 = Not at all Not being able to stop or control worryin = Not at all Worrying too much about different things: 0 = Not at all Trouble relaxin = Not at all Being so restless that it is hard to sit still: 0 = Not at all Becoming easily annoyed or irritable: 0 = Not at all Feeling afraid as if something awful might happen: 0 = Not at all Total NOREEN-7 score (0-4 normal; 5-9 mild; 10-14 moderate; 15-21 severe): 0 Source: Developed by Drs. Ben Aldrich, Dianna Thomas, Mansoor Nevarez and colleagues, with an educational isabelle from [employer]. Review of Systems Const Denies chills, Denies headache(s) and Denies weight loss ENT Denies headache(s) Card Denies chest pain, Denies syncope, Denies irregular heart rhythm and Denies dyspnea Resp Denies chest congestion, Denies cough and Denies dyspnea GI Denies abdominal pain, Denies change in stool character, Denies nausea and Denies vomiting Musc Denies deformity and Denies joint swelling Neuro Denies syncope and Denies headache(s) Physical exam (Primary Care) Vital Signs: Last Vital Signs Pulse 96 09/13/23 08:52 BP 146/88 H 09/13/23 08:52 Pulse Ox 98 09/13/23 08:52 Oxygen Delivery Method Room Air 09/13/23 08:52 BMI result Body Mass Index 45.2 Tobacco/Smoking Status: Tobacco use Status Tobacco use date assessed 09/13/23 09/13/23 08:57 Patient Tobacco Use Status Current someday Tobacco 09/13/23 08:57 Tobacco use type Cigarette 09/13/23 08:57 e-Cigarette/Vaping Use Never Used 09/13/23 08:57 PHQ-9: PHQ-9 Score PHQ-9: Total score 0 09/13/23 08:57 Depression Screening Interpretation: Negative Thrive Assessment: Date of Thrive Assessment Date Thrive assessed 09/13/23 09/13/23 08:57 Const General: cooperative, comfortable, no acute distress and alert Neck Neck: Yes no lymphadenopathy Thyroid: Thyroid normal Resp Effort & Inspection: normal respiratory effort Auscultation: clear to auscultation bilaterally Percussion: percussion normal Cardio Jugular venous distension: no JVD Palpation: normal PMI Rate: regular rate Rhythm: regular rhythm Heart sounds: S1 normal heart sound present and S2 normal heart sound present GI Inspection: Yes normal to inspection Palpation (GI): No hepatosplenomegaly present Skin General skin exam: no rashes or lesions noted Extrem General: Yes no clubbing, cyanosis or edema Assessment and Plan Assessment & Plan (1) Hip pain: Code(s): M25.559 - Pain in unspecified hip Plan: xr; ice and nsaids Orders: Orders XR hip RT min 2V Today M25.559 - Pain in unspecified hip Referrals Orthopedics Referral M25.559 - Pain in unspecified hip Coding Level of Care Code Est Pt Level 3 (08745) Diagnoses Hip pain M25.559 Additional Codes PHQ-9 - 50364 - PHQ-9 Billing: ([id number])
== END 2023-09-13 09:11 | disposition home or self-care (01) ==
PROVIDERS: PCP Internal Medicine; Visit Provider Internal Medicine
DX: M25.559 Pain in unspecified hip (principal)
CPT/HCPCS: 99213

== ENCOUNTER 2023-09-13 09:15 | Outpatient (REF) | payer BC, SELFPAY ==
--- NOTE | ~2023-09-13 | XR_ITS ---
EXAMINATION: XR HIP, RIGHT CLINICAL INFORMATION: Pain and unspecified hip. COMPARISON: None available. TECHNIQUE: 2 views of the right hip. FINDINGS: Advanced degenerative changes in the right hip with abundant hypertrophic change and marked joint space narrowing. There is remodeling and deformity of subjacent articular surfaces. Subtle transverse mixed sclerotic/lucent area along the femoral neck/head is likely related to degenerative changes with hypertrophic change, however, MRI recommended for further evaluation if there is concern for fracture or other underlying pathology. XR/XR hip RT min 2V IMPRESSION: 1. Advanced degenerative changes in the right hip. 2. Subtle transverse mixed sclerotic/lucent area along the femoral neck/head is likely related to degenerative changes with hypertrophic change, however, MRI recommended for further evaluation if there is concern for fracture or other underlying pathology. This study was presented today September 13, 2023 at 10:40 AM for interpretation. Stat results provided at this time as requested by referring provider.
== END 2023-09-13 09:16 | disposition home or self-care (01) ==
LOC: HO.XRAY 09:15
PROVIDERS: PCP Internal Medicine; Visit Provider Internal Medicine
DX: M25.551 Pain in right hip (principal)
CPT/HCPCS: 73502

== ENCOUNTER 2023-09-14 14:54 | Outpatient (REF) | payer BC, SELFPAY ==
--- NOTE | ~2023-09-14 | XR_ITS ---
EXAMINATION: XR PELVIS CLINICAL INFORMATION: Hip pain. COMPARISON: Right hip radiographs dated 09/13/2023. TECHNIQUE: AP view of the pelvis. FINDINGS: Bony alignment and mineralization are normal. There is marked narrowing of the right acetabular joint space, most pronounced superiorly, where it is fully effaced. There is peripheral osteophyte formation of the right femoral head. There is cortical thickening of the superior margin of the right femoral neck. Mild to moderate narrowing is seen of the left acetabular joint space. The bilateral femoral heads remain smooth. No fracture or dislocation is seen. There is no foreign body. XR/XR pelvis 1-2V IMPRESSION: There are marked degenerative changes of the right hip, with findings suggesting possible femoroacetabular impingement. There are mild to moderate degenerative changes of the left hip. No fracture or dislocation is seen.
== END 2023-09-14 14:55 | disposition home or self-care (01) ==
LOC: HO.HOSX 14:54
PROVIDERS: PCP Internal Medicine; Visit Provider Orthopaedic Surgery
DX: M16.11 Unilateral primary osteoarthritis, right hip (principal)
CPT/HCPCS: 72170

== ENCOUNTER 2023-09-14 14:54 | Outpatient (AMB) | payer BC, SELFPAY ==
[2023-09-14 15:13] VITALS: BMI 45.2
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
== END 2023-09-14 16:00 ==
PROVIDERS: PCP Internal Medicine; Visit Provider Orthopaedic Surgery
DX: M16.11 Unilateral primary osteoarthritis, right hip (principal)
CPT/HCPCS: 99203

== ENCOUNTER 2023-10-05 12:09 | Outpatient (AMB) | payer BC, SELFPAY ==
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
[2023-10-05 12:21] VITALS: BMI 45.2
== END 2023-10-05 14:37 | disposition home or self-care (01) ==
LOC: HO.HOS 12:10
PROVIDERS: PCP Internal Medicine; Visit Provider Orthopaedic Surgery
DX: M16.51 Unilateral post-traumatic osteoarthritis, right hip (principal)
CPT/HCPCS: 99214

== ENCOUNTER → 2023-10-05 12:09 | Outpatient (BNVA) | payer BC, SELFPAY | PROVIDERS: PCP Internal Medicine; Visit Provider Orthopaedic Surgery ==

== ENCOUNTER 2023-11-17 15:11 | Outpatient (AMB) | payer BC, SELFPAY ==
--- NOTE | 2023-11-17 15:13 | A.OFFVIS_ITS ---
Intake Vital Signs 11/17/23 15:15 Height 6 ft 2 in Weight 350 lb BMI 44.9 Pulse 112 H Pulse Source Pulse Oximeter Pulse Oximetry (%) 97 Oxygen Delivery Method Room Air Intake Visit Reasons: pulmonary clearance Intake Note: Of note: Patient stopped all smoking approx 09/30/2023. 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 Required: No Electrical Plumbing Supervisor: Electrical Plumbing Supervisor offered & declined Accompanied by: Self / Same As Patient Allergies cashew nut [CASHEW NUT] Allergy (Severe, Verified 11/17/23 15:18) ANAPHYLAXIS nut - unspecified [NUT - UNSPECIFIED] Allergy (Severe, Verified 11/17/23 15:18) ANAPHYLAXIS FROM UNKNONW NUT Medication List - Last Reconciled 11/17/23 by Akua Gifford LPN albuterol sulfate 90 mcg/actuation 2 puffs inhalation Q4-6H PRN fluticasone propion-salmeterol 230-21 mcg/actuation (Advair HFA) 2 puffs inhalation Q12H hydrochlorothiazide 25 mg PO DAILY lisinopril 40 mg PO DAILY varenicline (Chantix Starting Month Box) PO PER PKG DIR walker Folding Front wheeled walker HPI pulmonary clearance HPI Details Jethro is a pleasant 42 year old, former smoker, with 20 pack year history, with underlying history of asthma, HTN, and RAE on CPAP therapy. He recently quit smoking approximately two months ago with the assistance of Candi. Since the last visit, he has been well controlled on Advair and denies any respiratory symptoms. He denies any recent antibiotics or need for prednisone. He does report difficulty with CPAP therapy compliance, as he is waking up constantly due to significant right hip pain. He is scheduled for a total right hip replacement with Dr. Kelley on 12/19/23. Today he presents for preoperative evaluation. [facility] Medical History Skin lesions Morbid obesity Hypertension Surgical History History of surgical removal of skin lesion Family History Father Diabetes Mother No problems noted. Social History (Updated 11/17/23 @ 15:22 by Akua Gifford LPN) Housing: Apartment Alcohol intake: current Alcohol intake frequency: does not drink Patient Tobacco Use Status: Former Tobacco user Tobacco use type: Cigarette Years Smoked: 25 years / Quit 09/30/23 e-Cigarette/Vaping Use: Never Used Second Hand Smoke Exposure: No service: No Current occupational status: employed Cognitive needs: No Hearing needs: No Vision needs: No Review of Systems Const Denies chills, Denies excessive sweating, Denies fever(s), Denies headache(s) and Denies night sweats Eyes Denies dry eyes, Denies irritation and Denies itchy eyes ENT Reports Normal hearing present, Denies headache(s), Denies nasal congestion, Denies nasal discharge, Denies post nasal drip and Denies sore throat Card Denies chest pain, Denies chest pain at rest, Denies chest pain with activity, Denies claudication, Denies leg edema, Denies dyspnea, Denies dyspnea on exertion, Denies orthopnea and Denies paroxysmal nocturnal dyspnea Resp Denies chest congestion, Denies cough, Denies excessive phlegm production, Denies pain on inspiration, Denies pain with cough, Denies dyspnea, Denies dyspnea on exertion, Denies stridor and Denies wheezing Neuro Reports Normal hearing present and Denies headache(s) Endo Denies excessive sweating [place]/Lymph Denies lymphadenopathy Aller/Immun Denies itchy eyes, Denies seasonal rhinorrhea and Denies wheezing Physical Exam Vital Signs: Last Vital Signs Pulse 112 H 11/17/23 15:15 Pulse Ox 97 11/17/23 15:15 Oxygen Delivery Method Room Air 11/17/23 15:15 BMI result Body Mass Index 44.9 Const General: cooperative, healthy appearing, comfortable, no acute distress, well developed and alert Nutritional Appearance: obese Orientation/consciousness: patient oriented x3 Limitations: no limitations HEENT Head: Yes normal to inspection, Yes normocephalic and Yes atraumatic Ears: hearing grossly normal bilaterally and external ears normal Eyes General: appearance normal, both eyes and all related structures Eyelids: Yes eyelids normal Sclerae: sclerae normal EOM: EOMs intact bilaterally Neck Neck: Yes normal visual inspection and Yes no lymphadenopathy Lymphatic: no lymphadenopathy noted Chest Chest palpation & inspection: normal inspection of the chest Resp Effort & Inspection: normal respiratory effort, able to speak in complete sentences, no audible wheezes, no cough, no stridor, not tachypneic, no tripod positioning and no use of accessory muscles Auscultation: clear to auscultation bilaterally Cardio Jugular venous distension: no JVD Rate: regular rate Rhythm: regular rhythm Skin Other: warm, dry General skin exam: no rashes or lesions noted Neuro General: patient oriented x3 Cranial nerves: Yes Normal hearing present Cognition (Neuro): normal cognition Gait exam (Neuro): Normal gait present Extrem General: Yes normal to inspection, Yes capillary refill normal, Yes no clubbing, cyanosis or edema and Yes no pedal edema Psych Appearance: grossly normal and well kempt Speech and movement: Normal speech and movement present and Clear speech present Affect: normal affect Attitude: cooperative Thought process: Normal thought process present Thought content: Normal thought content present Insight: Good insight present (Psych) Judgement: Good judgement present (Psych) Assessment & Plan Assessment & Plan (1) Encounter for preoperative pulmonary examination: Code(s): Z01.811 - Encounter for preprocedural respiratory examination (2) Asthma: Code(s): J45.909 - Unspecified asthma, uncomplicated (3) Morbid obesity: Code(s): E66.01 - Morbid (severe) obesity due to excess calories (4) Obstructive sleep apnea: Code(s): G47.33 - Obstructive sleep apnea (adult) (pediatric) Plan Jethro presents for preoperative pulmonary evaluation for proposed right hip replacement. He reports good control of respiratory symptoms on Advair.?He has not required steroids or antibiotics in the last three months. He denies any respiratory symptoms and respiratory exam unremarkable. Prior PFT did not reveal any obstructive nor restrictive ventilatory defects. There was no significant response to bronchodilator, however patient had used albuterol prior to test. Lung volumes are normal except for decrease in the expiratory residual volume likely secondary to elevated BMI. Diffusion capacity is within normal limits. At this time, he is considered low risk for perioperative pulmonary complications for proposed total right hip replacement with Dr. Kelley on 12/19/23. Consider bronchodilators during the perioperative period. All questions were answered and patient is in agreement of plan. Will follow up for regularly scheduled appointment or sooner if needed.? Medications: New fluticasone propion-salmeterol 232-14 mcg/actuation (AirDuo RespiClick) 1 inh inhalation BID 1 ea 3RF Discontinued fluticasone propion-salmeterol 230-21 mcg/actuation (Advair HFA) Discontinued Reason: Ancillary Entered New Order 2 puffs inhalation Q12H 12 grams 6RF Coding Level of Care Code Est Pt Level 4 (17694) Diagnoses Encounter for preoperative pulmonary examination Z01.811 Asthma J45.909 Morbid obesity E66.01 Obstructive sleep apnea G47.33
[2023-11-17 15:15] VITALS: PULSE 112; O2SAT 97; BMI 44.9
== END 2023-11-17 15:51 | disposition home or self-care (01) ==
PROVIDERS: PCP Internal Medicine; Visit Provider Nurse Practitioner Family
DX: Z01.811 Encounter for preprocedural respiratory examination (principal); J45.909 Unspecified asthma, uncomplicated; E66.01 Morbid (severe) obesity due to excess calories; G47.33 Obstructive sleep apnea (adult) (pediatric)
CPT/HCPCS: 99214

== ENCOUNTER → 2023-11-17 15:11 | Outpatient (BNVA) | payer BC, SELFPAY | PROVIDERS: PCP Internal Medicine; Visit Provider Nurse Practitioner Family ==

== ENCOUNTER 2023-12-04 13:40 | Outpatient (AMB) | payer BC, SELFPAY ==
--- NOTE | 2023-12-04 13:46 | MHC.PC.OV ---
Vital Signs 12/04/23 13:47 Height 6 ft 2 in Weight 342 lb BMI 43.9 BP 142/100 H Blood Pressure Location Lt brachial Position Sitting Pulse 82 Pulse Source Pulse Oximeter Pulse Oximetry (%) 99 Oxygen Delivery Method Room Air Intake Visit Reasons: Pre-op Rt VERITO 12/19/23 NE Quality Nurse Required: No Aoc Director Combat Operations Officer: Not Required per policy Accompanied by: Self / Same As Patient Allergies cashew nut [CASHEW NUT] Allergy (Severe, Verified 12/04/23 13:47) ANAPHYLAXIS Medication List - Last Reconciled 12/05/23 by Juan Otto MD albuterol sulfate 90 mcg/actuation 2 puffs inhalation Q4-6H PRN fluticasone propion-salmeterol 232-14 mcg/actuation (AirDuo RespiClick) 1 inh inhalation BID hydrochlorothiazide 25 mg PO DAILY lisinopril 40 mg PO DAILY walker Folding Front wheeled walker Tobacco use date assessed: 09/13/23 Dental Screening Dental Screen Date: 09/13/23 HPI Pre-op Rt VERITO 12/19/23 NE HPI Details to have a right hip arthroplasty next month; has controlled asthm and htn; has sleep apnea on [facility] Medical History Skin lesions Morbid obesity Hypertension Surgical History History of surgical removal of skin lesion Family History Father Diabetes Mother No problems noted. Social History (Updated 11/17/23 @ 15:22 by Akua Gifford LPN) Housing: Apartment Alcohol intake: current Alcohol intake frequency: does not drink Patient Tobacco Use Status: Former Tobacco user Tobacco use type: Cigarette Years Smoked: 25 years / Quit 09/30/23 e-Cigarette/Vaping Use: Never Used Second Hand Smoke Exposure: No service: No Current occupational status: employed Cognitive needs: No Hearing needs: No Vision needs: No Questionnaire Thrive Questionnaire Date Thrive assessed: 09/13/23 NOREEN-7 AMB Questionnaire NOREEN-7 Date NOREEN - 7 assessed: 09/13/23 Source: Developed by Drs. Ben Aldrich, Dianna Thomas, Mansoor Nevarez and colleagues, with an educational isabelle from [employer]. Review of Systems Const Denies chills, Denies fatigue, Denies headache(s) and Denies weight loss Eyes Denies change in vision, Denies diplopia and Denies eye pain ENT Denies vertigo, Denies dizziness, Denies headache(s) and Denies nasal discharge Card Denies chest pain, Denies rapid heart rate and Denies dyspnea on exertion Resp Denies chest congestion, Denies cough, Denies pain with cough and Denies dyspnea on exertion GI Denies abdominal pain, Denies hematochezia and Denies change in bowel habits Musc Denies myalgias, Denies arthralgias and Denies joint swelling Skin/Breast Denies lesions and Denies unusual bruising Neuro Denies vertigo, Denies dizziness, Denies headache(s) and Denies focal weakness Endo Denies fatigue Physical exam (Primary Care) Vital Signs: Last Vital Signs Pulse 82 12/04/23 13:47 BP 142/100 H 12/04/23 13:47 Pulse Ox 99 12/04/23 13:47 Oxygen Delivery Method Room Air 12/04/23 13:47 BMI result Body Mass Index 43.9 Tobacco/Smoking Status: Tobacco use Status Tobacco use date assessed 09/13/23 12/04/23 13:47 Patient Tobacco Use Status Former Tobacco user 12/04/23 13:47 Tobacco use type Cigarette 12/04/23 13:47 e-Cigarette/Vaping Use Never Used 12/04/23 13:47 Thrive Assessment: Date of Thrive Assessment Date Thrive assessed 09/13/23 12/04/23 13:47 Const General: cooperative, healthy appearing and no acute distress Orientation/consciousness: oriented to person, oriented to place and oriented to time [facility] Head: Yes normal to inspection, Yes normocephalic and Yes atraumatic Mouth: Normal oral and palatal mucosa present and tongue normal Throat: Yes posterior oropharynx normal and Yes uvula midline Eyes General: appearance normal, both eyes and all related structures Neck Neck: Yes normal visual inspection, Yes full ROM and Yes no lymphadenopathy Thyroid: Thyroid normal Carotids: normal carotid upstroke Chest Chest palpation & inspection: normal inspection of the chest Resp Effort & Inspection: normal respiratory effort and able to speak in complete sentences Auscultation: clear to auscultation bilaterally Cardio Jugular venous distension: no JVD Palpation: normal PMI Rate: regular rate Rhythm: regular rhythm Heart sounds: S1 normal heart sound present and S2 normal heart sound present GI Inspection: Yes normal to inspection Palpation (GI): Soft to palpation and No hepatosplenomegaly present Auscultation: normal bowel sounds General: Yes no CVA tenderness Back/Spine/Pelvis Back: no CVA tenderness Skin General skin exam: no rashes or lesions noted Neuro General: oriented to person, oriented to place and oriented to time Extrem General: Yes normal to inspection and Yes full ROM Assessment and Plan Assessment & Plan (1) Pre-op evaluation: Code(s): Z01.818 - Encounter for other preprocedural examination Plan: low risk of cardiovascular complications; cleared for surgery (2) Hypertension: Code(s): I10 - Essential (primary) hypertension Plan: stable; same rx (3) Obstructive sleep apnea: Code(s): G47.33 - Obstructive sleep apnea (adult) (pediatric) Plan: stable; same rx with CPAP Coding Level of Care Code Est Pt Level 4 (48291) Diagnoses Pre-op evaluation Z01.818 Hypertension I10 Obstructive sleep apnea G47.33
[2023-12-04 13:47] VITALS: BP 142/100; PULSE 82; O2SAT 99; BMI 43.9
== END 2023-12-04 14:09 | disposition home or self-care (01) ==
LOC: HO.HMGH 13:42
PROVIDERS: PCP Internal Medicine; Visit Provider Internal Medicine
DX: Z01.818 Encounter for other preprocedural examination (principal); I10 Essential (primary) hypertension; G47.33 Obstructive sleep apnea (adult) (pediatric)
CPT/HCPCS: 99214

== ENCOUNTER → 2023-12-11 12:39 | Outpatient (BNV) | payer BC, SELFPAY | PROVIDERS: Admitting Provider Orthopaedic Surgery; PCP Internal Medicine; Visit Provider Internal Medicine | DX: R00.0 Tachycardia, unspecified (principal) | CPT/HCPCS: 93010 ==

== ENCOUNTER 2023-12-14 06:55 | Outpatient (REF) | payer BC, SELFPAY ==
--- NOTE | ~2023-12-14 | XR_ITS ---
EXAMINATION: XR HIP, RIGHT CLINICAL INFORMATION: Pain in right hip, preop. COMPARISON: 09/14/2023, 09/13/2023. TECHNIQUE: AP view of the pelvis as well as AP and frog lateral views of the right hip. FINDINGS: Rounded and vertical horizontal linear radiopaque devices project over the central pelvis and correlation with clinical exam recommended to determine significance. Degenerative changes in the imaged lower lumbar spine. Redemonstration of marked narrowing of the right hip joint, particularly at the superior aspect with subchondral sclerosis and hypertrophic change. Cortical thickening along the superior margin of the right femoral neck redemonstrated. [id number] narrowing of the left hip joint space superior aspect. XR/XR hip RT min 2V IMPRESSION: 1. Redemonstration of marked degenerative changes in the right hip joint. 2. Wzwi-on-[id number] degenerative changes in the left hip joint. 3. Rounded and vertical horizontal linear radiopaque device is projected over the central pelvis and correlation with clinical exam recommended to determine significance.
== END 2023-12-14 06:56 | disposition home or self-care (01) ==
LOC: HO.HOSX 06:55
PROVIDERS: Visit Provider Physician Assistant
DX: M16.11 Unilateral primary osteoarthritis, right hip (principal)
CPT/HCPCS: 73502

== ENCOUNTER 2023-12-14 13:51 | Outpatient (AMB) | payer BC, SELFPAY ==
--- NOTE | 2023-12-14 06:54 | MHC.OFFVIS ---
Vital Signs 12/14/23 14:05 Height 6 ft 2 in Weight 342 lb BMI 43.9 Intake Visit Reasons: Pre-op Rt VERITO 12/19/23 NE Intake Note: Jethro 43 yr old male presents todays for his pre op visit for his Right VERITO scheduled for 12/19/[address] Kelley. Pain management agreement signed and reviewed. Allergies cashew nut [CASHEW NUT] Allergy (Severe, Verified 12/14/23 14:06) ANAPHYLAXIS Medication List - Last Reconciled 12/14/23 by Kristal Bob PA-C albuterol sulfate 90 mcg/actuation 2 puffs inhalation Q4-6H PRN fluticasone propion-salmeterol 232-14 mcg/actuation (AirDuo RespiClick) 1 inh inhalation BID hydrochlorothiazide 25 mg PO DAILY lisinopril 40 mg PO DAILY walker Folding Front wheeled walker HPI Comments Details: Mr Rinaldi presents to the office today for preop visit. He is scheduled for right total hip arthroplasty with Dr. Kelley. He continues to have ongoing pain and difficulty with ambulation in the right hip, which is affecting his quality of life; therefore, he has elected to move forward with surgery. [facility] Medical History (Updated 12/11/23 @ 11:54 by Luz Molina RN) Sleep apnea Asthma Osteoarthritis Skin lesions Morbid obesity Hypertension Surgical History History of surgical removal of skin lesion Family History Father Diabetes Mother No problems noted. Social History Housing: Apartment Housing Other:: basement apartment with walk-out door Are you a primary care coordination manager to a significant other at home: No Do you presently have visiting nurse or other home services: No Alcohol intake: current Alcohol intake frequency: does not drink Patient Tobacco Use Status: Former Tobacco user Quit Date: 09/2023 Tobacco use type: Cigarette Years Smoked: 25 e-Cigarette/Vaping Use: Never Used Second Hand Smoke Exposure: No service: No Current occupational status: employed Cognitive needs: No Hearing needs: No Vision needs: No Review of Systems Const All systems reviewed & are unremarkable except as noted in HPI and below Physical Exam Vital Signs: BMI result Body Mass Index 43.9 Const General: cooperative and no acute distress Orientation/consciousness: patient oriented x3 HEENT Head: Yes normal to inspection, Yes normocephalic and Yes atraumatic Eyes General: appearance normal, both eyes and all related structures Neck Neck: Yes normal visual inspection and Yes no lymphadenopathy Resp Effort & Inspection: normal respiratory effort and able to speak in complete sentences Cardio Rate: regular rate Peripheral pulses: Peripheral pulses 2+ throughout GI Inspection: Yes normal to inspection Palpation (GI): Soft to palpation Skin General skin exam: no rashes or lesions noted Neuro General: patient oriented x3 Extrem Other: Right hip: Pain with ROM and hip flexion. No open wound or abrasion. Calf supple, nontender. NVI. Psych Appearance: grossly normal Mental Status: mental status grossly normal Results Reviewed Results Reviewed: Pulmonology clearance: Plan Jethro presents for preoperative pulmonary evaluation for proposed right hip replacement. He reports good control of respiratory symptoms on Advair.?He has not required steroids or antibiotics in the last three months. He denies any respiratory symptoms and respiratory exam unremarkable. Prior PFT did not reveal any obstructive nor restrictive ventilatory defects. There was no significant response to bronchodilator, however patient had used albuterol prior to test. Lung volumes are normal except for decrease in the expiratory residual volume likely secondary to elevated BMI. Diffusion capacity is within normal limits. At this time, he is considered low risk for perioperative pulmonary complications for proposed total right hip replacement with Dr. Kelley on 12/19/23. Consider bronchodilators during the perioperative period. All questions were answered and patient is in agreement of plan. Will follow up for regularly scheduled appointment or sooner if needed.? PCP clearance: Assessment & Plan (1) Pre-op evaluation: Code(s): Z01.818 - Encounter for other preprocedural examination Plan: low risk of cardiovascular complications; cleared for surgery (2) Hypertension: Code(s): I10 - Essential (primary) hypertension Plan: stable; same rx (3) Obstructive sleep apnea: Code(s): G47.33 - Obstructive sleep apnea (adult) (pediatric) Plan: stable; same rx with CPAP Assessment & Plan Assessment & Plan (1) Arthritis of right hip: Code(s): M16.11 - Unilateral primary osteoarthritis, right hip Category: Medical Plan: I discussed in detail the procedure and what to expect pre and post operatively. We discussed the risks, benefits and alternatives to the surgery as well as the rehabilitation course. The risks; which include, but are not limited to infection, bleeding, nerve injury, ongoing pain, swelling, and stiffness, perioperative risk of injury to bones and soft tissues, and blood clots. I?ve answered all questions and with their understanding they have consented to move forward with Right total hip arthroplasty with Dr. Kelley PT order placed Orders: Orders XR hip RT min 2V Today M25.551 - Pain in right hip PT Evaluation and Treatment Today Z96.641 - Presence of right artificial hip joint Patient Instructions: Scribed for Kristal Bob PA-C, by Silverio Milner certified medical transcriptionist, on 12/14/2023 at 1:45 PM JAMARI. Kristal Horton PA-C, have personally reviewed and agree with the information entered by the scribe. Coding Level of Care Code Est Pt Level 3 (94394) Diagnoses Arthritis of right hip M16.11
[2023-12-14 14:05] VITALS: BMI 43.9
== END 2023-12-14 15:08 | disposition home or self-care (01) ==
LOC: HO.HOS 13:51
PROVIDERS: PCP Internal Medicine; Visit Provider Physician Assistant
DX: M16.11 Unilateral primary osteoarthritis, right hip (principal)
CPT/HCPCS: 99024

== ENCOUNTER 2023-12-19 06:09 | Inpatient (IN) | payer BC, SELFPAY ==
--- NOTE | 2023-12-11 | ECG_ITS ---
Test Reason : preop Blood Pressure : / mmHG Vent. Rate : 107 BPM Atrial Rate : 107 BPM P-R Int : 158 ms QRS Dur : 086 ms QT Int : 328 ms P-R-T Axes : 069 047 062 degrees QTc Int : 437 ms Sinus tachycardia Otherwise normal ECG When compared with ECG of 22-OCT-2022 13:47, No significant change was found Referred By: Betzy Wharton Electronically Signed By:LUNA MORALEZ
[2023-12-11 11:57] VITALS: BP 132/75; PULSE 99; RESP 20; O2SAT 97; BMI 44.2
--- NOTE | 2023-12-11 12:14 | P.CONAN_ITS ---
Documented by User: Betzy Wharton NP 12/15/23 13:07 HPI - Anesthesia Eval Consult details Narrative: 43yo M for Right Hip Total Replacement, 12/19/23 Pulmo cleared PCP cleared URI ~ 12/04/23. Cleared on own. A little residual cough No CP within limits of pain. Lung disease stable RAE. Rare CPAP. Sleeps in chair r/t RAE and hip pain Asthma/Smoker. Scheduled inhaler BID. No albuterol use (only when sick) Increased BMI PMFSH Active Problems Active Problems: All Active Problems Pre-op evaluation (Acute) Encounter for preoperative pulmonary examination (Acute) Post traumatic osteoarthritis of hip (Acute) Arthritis of right hip (Acute) Hip arthritis (Acute) Hip pain (Acute) Dyspnea on minimal exertion (Acute) Cough (Acute) Tobacco dependence (Acute) Asthma (Acute) Bronchitis (Acute) Obstructive sleep apnea (Acute) Skin lesions (Acute) Morbid obesity (Acute) Hypertension (Acute) Past Medical History Medical History Sleep apnea Asthma Osteoarthritis Skin lesions Morbid obesity Hypertension Family History Family History Father Diabetes Mother No problems noted. Surgical History Surgical History History of surgical removal of skin lesion Social History Social History Housing: Apartment Housing Other:: basement apartment with walk-out door Are you a primary auto care center manager to a significant other at home: No Do you presently have visiting nurse or other home services: No Alcohol intake: current Alcohol intake frequency: does not drink Patient Tobacco Use Status: Former Tobacco user Quit Date: 09/2023 Tobacco use type: Cigarette Years Smoked: 25 Smoked in Last 30 Days: No e-Cigarette/Vaping Use: Never Used Second Hand Smoke Exposure: No Use of substances other than those prescribed or required for medical reasons: No Have you been hit, kicked, punched, or otherwise hurt by someone within the past year? If so, by whom?: No Are you DNR?: No Advance Directives: No (states sister is primary contact) Advance Directives Information Provided: Yes (brochure given) Advance Directives on File: No Recently lost weight without trying: No Eating poorly because of decreased appetite: No Nutrition Risks: No Nutritional Risk Poor oral hygiene: No (2 front upper teeth extracted) service: No Current occupational status: employed Cognitive needs: No Hearing needs: No Vision needs: No Meds Allergies Allergy/AdvReac Type Severity Reaction Status Date / Time cashew nut [CASHEW NUT] Allergy Severe ANAPHYLAXIS Verified 12/14/23 14:06 Exam Height,Weight and Vital Signs: Height 6 ft 2 in Weight 156.036 kg Last Vital Signs Pulse 99 12/11/23 11:57 Resp 20 12/11/23 11:57 BP 132/75 12/11/23 11:57 Pulse Ox 97 12/11/23 11:57 O2 Del Method Room Air 12/11/23 11:57 Pertinent Lab Results Pertinent Lab Results: Lab Results 12/11/23 12/11/23 12/11/23 Range/Units 12:10 12:55 13:02 WBC 8.8 (4.8-10.8) X10*3/uL RBC 5.51 (4.60-5.80) X10*6/uL Hgb 16.6 (14.0-18.0) g/dl Hct 49.4 (42.0-52.0) % MCV 89.7 (80.0-98.0) fL MCH 30.1 (27.0-33.0) pg MCHC 33.6 (31.0-36.0) g/dl RDW 12.2 (11.0-16.0) % Plt Count 277 D (160-400) X10*3/uL MPV 10.6 (9.4-12.4) fL Absolute Nucleated RBC 0.000 (0.0-0.012) X10*3/uL Nucleated RBC % (auto) 0.0 (0.0-0.2) /100WBC Sodium 136 (135-145) mmol/L Potassium 4.3 (3.3-5.1) mmol/L Chloride 99 (96-108) mmol/L Carbon Dioxide 30 H (22-29) mmol/L Anion Gap 11 L (12-20) BUN 24 H (9-16) mg/dL Creatinine 1.30 (0.5-1.4) mg/dL Estim Creat Clear Calc 115.7 Estimated GFR > 60 Random Glucose 114 (60-115) mg/dL Calcium 10.2 D (8.4-10.2) mg/dL Nasal Screen MRSA (PCR) NEGATIVE (Negative) Nasal S. aureus Screen POSITIVE A (Negative) Nasal MRSA/S.aureus Interp SEE NOTE Blood Type A Positive Antibody Screen NEGATIVE Narrative Narrative: EKG 11/2023 Vent. Rate : 107 BPM Atrial Rate : 107 BPM P-R Int : 158 ms QRS Dur : 086 ms QT Int : 328 ms P-R-T Axes : 069 047 062 degrees QTc Int : 437 ms Sinus tachycardia Otherwise normal ECG When compared with ECG of 22-OCT-2022 13:47, No significant change was found Airway Mallampati Class: III TM Dist: >3cm Neck ROM: Full Loose/Missing/Broken Teeth: Yes (8&9 extracted. Molars extracted.) Heart: RRR Lungs: CTAB Assessment and Plan Assessment Anesthesia Assessment: Anesthesia Plan Discussed and PAT Visit Documented by User: Ely Mckeon MD 12/19/23 09:28 [facility] Past Medical History Medical History Sleep apnea Asthma Osteoarthritis Skin lesions Morbid obesity Hypertension Family History Family History Father Diabetes Mother No problems noted. Family history of problems with anesthesia: No Surgical History Surgical History History of surgical removal of skin lesion History of Problems with Anesthesia: No Social History Social History Housing: Apartment Housing Other:: basement apartment with walk-out door Are you a primary auto care center manager to a significant other at home: No Do you presently have visiting nurse or other home services: No Alcohol intake: current Alcohol intake frequency: does not drink Patient Tobacco Use Status: Former Tobacco user Quit Date: 09/2023 Tobacco use type: Cigarette Years Smoked: 25 Smoked in Last 30 Days: No e-Cigarette/Vaping Use: Never Used Second Hand Smoke Exposure: No Use of substances other than those prescribed or required for medical reasons: No Have you been hit, kicked, punched, or otherwise hurt by someone within the past year? If so, by whom?: No Are you DNR?: No Advance Directives: No (states sister is primary contact) Advance Directives Information Provided: Yes (brochure given) Advance Directives on File: No Recently lost weight without trying: No Eating poorly because of decreased appetite: No Nutrition Risks: No Nutritional Risk Poor oral hygiene: No (2 front upper teeth extracted) service: No Current occupational status: employed Cognitive needs: No Hearing needs: No Vision needs: No Meds Allergies Allergy/AdvReac Type Severity Reaction Status Date / Time cashew nut [CASHEW NUT] Allergy Severe ANAPHYLAXIS Verified 12/14/23 14:06 Assessment and Plan Assessment Anesthesia Assessment: Chart Reviewed Final Anesthetic Review Family History of Problems with Anesthesia: No History of Problems with Anesthesia: No NPO: Yes ASA Class: III Final Preanesthetic Review: No Changes in Pt Med Stat, Meds/Allgs Chart Reviewed, Consent Obtained/Reviewed and Anes Risks/Benef Reviewed Patient Risk: Intermediate Procedure Risk: Intermediate Anesthetic Plan Anesthetic Plan: GA Disposition: Standard PACU
[2023-12-11 14:15] LABS: Hematocrit 49.4 % (42.0-52.0); Hemoglobin 16.6 g/dl (14.0-18.0); Mean Corpuscular HGB Conc 33.6 g/dl (31.0-36.0); Mean Corpuscular Hemoglobin 30.1 pg (27.0-33.0); Mean Corpuscular Volume 89.7 fL (80.0-98.0); Mean Platelet Volume 10.6 fL (9.4-12.4); Platelet Count 277 X10*3/uL (160-400); Red Blood Count 5.51 X10*6/uL (4.60-5.80); Red Cell Distribution Width 12.2 % (11.0-16.0); White Blood Count 8.8 X10*3/uL (4.8-10.8)
[2023-12-11 14:36] LABS: MRSA Nasal PCR NEGATIVE (Negative); SA Nasal PCR POSITIVE (Negative)
[2023-12-11 15:24] LABS: Anion Gap 11 (12-20); Blood Urea Nitrogen 24 mg/dL (9-16); Calcium 10.2 mg/dL (8.4-10.2); Carbon Dioxide 30 mmol/L (22-29); Chloride 99 mmol/L (96-108); Creatinine Clr Calc Pharmacy 115.7; Estimated Glomerular Filt Rate > 60; Glucose Random 114 mg/dL (60-115); Potassium 4.3 mmol/L (3.3-5.1); Sodium 136 mmol/L (135-145)
[2023-12-19] VITALS (13 sets, daily range): BP systolic 112–170; BP diastolic 57–96; PULSE 80–112; RESP 15–22; TEMP 36.1–36.9; O2SAT 91–97; BMI 45.8
--- NOTE | ~2023-12-19 | XR_ITS ---
EXAMINATION: XR PELVIS CLINICAL INFORMATION: Status-post right total hip arthroplasty. COMPARISON: Radiograph dated 12/27/2003. TECHNIQUE: 2 AP views of the pelvis are submitted. FINDINGS: Prosthetic components of the right total hip arthroplasty are appropriately aligned. No periprosthetic fracture. There is periventricular gas from recent surgery, and lateral right upper thigh skin peewee are noted. There is moderate degenerative change of the left hip, with joint space narrowing and peripheral osteophyte formation. The left femoral head is smooth. The pubic symphysis is intact. No foreign body is seen. XR/XR pelvis 1-2V IMPRESSION: Unremarkable appearance status-post right hip total arthroplasty, without dislocation or periprosthetic fracture. There is moderate osteoarthritic change of the left hip.
[2023-12-19] MEDS: oxyCODONE HCl ER 10 MG TAB.ER.12H PO ×2 (06:35→19:59)
[2023-12-19] MEDS: Lactated Ringers 1,000 ML 100 ML IVCONT ×3 (06:45→21:57)
--- NOTE | 2023-12-19 07:08 | PHA.MEDREC ---
Pharmacy Consult ? Medication Reconciliation Pharmacy has completed the medication reconciliation. Reviewed med rec done by nursing
--- NOTE | 2023-12-19 07:17 | MHC.SHP ---
Pre-Procedural Eval Section A - 24 Hr Update-Section A only Date of Service: 12/19/23 The patient is an INPATIENT: No Changes since office visit: No Cold of Flu in the past 2 weeks, No New Medical Problems, No Changes in Medication and No Patient answered all questions The patient has been examined within 24 hours of the surgical procedure. The History & Physical has been completed within 30 days and I have reviewed it.: Yes Section B - Complete if H&P > 30 days Chief Complaint: RT VERTIO Allergies: Allergies Allergy/AdvReac Type Severity Reaction Status Date / Time cashew nut [CASHEW NUT] Allergy Severe ANAPHYLAXIS Verified 12/14/23 14:06 Plan I have reviewed the history and physical and performed a pertinent physical examination on my patient. No changes have occurred unless specified. Time Spent With Patient Time: Total time managing care of this patient today ____ minutes.
--- NOTE | 2023-12-19 09:28 | PM.OP ---
Brief Operative Note Date of Service: 12/19/23 Pre-op diagnosis: Right hip OA Post-op diagnosis: same Procedure: Right VERITO Implants: Chery Trident 2 56 [place] Accolade 2 #7 132 deg/ +0 ceramic 36 Surgeon: Eric Kelley MD Anesthesia: GETA and local Was an Supervisor Machining used for this Procedure?: Yes Supervisor Machining: Kristal Bob Estimated blood loss (mL): 250 IV fluids (mL): 1,200 Pathology: other Condition: stable Disposition: PACU
[2023-12-19] MEDS: HYDROmorphone HCl 0.5 MG/0.5 ML SYRINGE 0.25 MG IVPUSH ×6 (09:58→21:57)
[2023-12-19] MEDS: oxyCODONE HCl Immed Release 5 MG TABLET PO ×2 (10:34→18:02)
--- NOTE | 2023-12-19 11:23 | P.CONHOSP_ITS ---
History of Present Illness Data of Consult Service Date: 12/19/23 Requesting physician: Kristal Bob Primary Care Provider: Juan Otto MD [facility] Reason for consult: medical management 43 year old male with history of unspecified asthma, RAE compliant with cpap, htn, who is morbidly obese with BMI >45 admitted to orthopedic surgery for OA R hip s/p VERITO with consult placed to hospitalist service for medical management. On arrival, per RN report, pt very groggy was placed on CPAP but pt keep removing this. He continues to desat to 86-88% on RA. He is more awake though slightly groggy on my exam and placed on 3L supplemental O2 maintaining oximetry 92%. He reports pain levels are much more controlled at this time rated 2-3/10 where in PACU was 10/10 and given total 1 mg dialudid, fentanyl, 15 mg oxycodone total, and torodol which may have contributed to patient's drowsiness combined with anesthesia effects. He is reporting pruritus but is not overly bothered by this. Review of Systems 2 Review of Systems: General: No fevers, malaise, unintentional weight loss HEENT: No blurred vision, diplopia. No sore throat, nasal congestion, rhinorrhea, sinus pain, ear pain Cardiovascular: No chest pain, palpitations, or leg edema Respiratory: No shortness of breath, wheezing, cough GI: No abdominal pain, nausea, vomiting, diarrhea, constipation, melena, hematochezia : No dysuria, hematuria, increased urinary frequency, decreased urinary output MSK: No myalgia, back pain. +R hip pain Neuro: No headaches, weakness, paresthesias Skin: No rashes or lesions. +pruritus [facility] Medical History Sleep apnea Asthma Osteoarthritis Skin lesions Morbid obesity Hypertension Family History Father Diabetes Mother No problems noted. Surgical History History of surgical removal of skin lesion Social History Housing: Apartment Housing Other:: basement apartment with walk-out door Are you a primary career manager to a significant other at home: No Do you presently have visiting nurse or other home services: No Alcohol intake: current Alcohol intake frequency: does not drink Patient Tobacco Use Status: Former Tobacco user Quit Date: 09/2023 Tobacco use type: Cigarette Years Smoked: 25 Smoked in Last 30 Days: No e-Cigarette/Vaping Use: Never Used Second Hand Smoke Exposure: No Use of substances other than those prescribed or required for medical reasons: No Have you been hit, kicked, punched, or otherwise hurt by someone within the past year? If so, by whom?: No Are you DNR?: No Advance Directives: No (states sister is primary contact) Advance Directives Information Provided: Yes (brochure given) Advance Directives on File: No Recently lost weight without trying: No Eating poorly because of decreased appetite: No Nutrition Risks: No Nutritional Risk Poor oral hygiene: No (2 front upper teeth extracted) service: No Current occupational status: employed Cognitive needs: No Hearing needs: No Vision needs: No Meds Allergies Allergy/AdvReac Type Severity Reaction Status Date / Time cashew nut [CASHEW NUT] Allergy Severe ANAPHYLAXIS Verified 12/14/23 14:06 Active Medications: Current Medications Acetaminophen (Acetaminophen 325 Mg Tablet) 650 mg PO Q6H PRN PRN Reason: Pain, Mild (Pain Scale 1-3) Albuterol Sulfate (Albuterol Sulfate 90 Mcg 8 Gm Inhaler) 2 puff INHALE RQ4H PRN PRN Reason: shortness of breath or wheezing Aspirin (Aspirin 325 Mg Tablet) 325 mg PO BID ANDREIA Celecoxib (Celecoxib 200 Mg Capsule) 200 mg PO BID ANDREIA Docusate Sodium (Docusate Sodium 100 Mg Capsule) 100 mg PO BID ANDREIA Hydromorphone HCl (Hydromorphone Hcl 0.5 Mg/0.5 Ml Syringe) 0.25 mg IVPUSH Q4H PRN; Protocol PRN Reason: Pain, Severe (Pain Scale 7-10) Lactated Ringer's (Lr) 1,000 mls @ 100 mls/hr IVCONT .Q10H ANDREIA Stop: 12/20/23 09:34 Cefazolin Sodium/Dextrose (Ancef) 2 gm in 50 mls @ 100 mls/hr IV POSTOP ONE Stop: 12/19/23 14:29 Non-Formulary Medication (Fluticasone Propion-Salmeterol [Airduo Respiclick]) 1 inhalation INHALE BID [facility] Ondansetron HCl (Ondansetron Hcl 4 Mg/2 Ml Vial) 4 mg IVPUSH ONCE PRN PRN Reason: Nausea and Vomiting Stop: 12/19/23 15:39 Ondansetron HCl (Ondansetron Hcl 4 Mg/2 Ml Vial) 4 mg IVPUSH Q8H PRN PRN Reason: Nausea and Vomiting Oxycodone HCl (Oxycodone Hcl Immed Release 5 Mg Tablet) 5 mg PO Q4H PRN PRN Reason: Pain, Moderate(Pain Scale 4-6) Oxycodone HCl (Oxycodone Hcl Er 10 Mg Tab.Er.12h) 10 mg PO BID [facility] Sodium Chloride (0.9 % Sodium Chloride Flush 3 Ml Syringe) 3 ml IVFLUSH QSHIFT [facility] Physical Exam 2 Vital Signs and Narrative: Vital Signs: Last Vital Signs Temp 97.6 F 12/19/23 10:54 Pulse 87 12/19/23 10:54 Resp 16 12/19/23 10:54 BP 115/79 12/19/23 10:54 Pulse Ox 94 12/19/23 10:54 O2 Del Method Room Air 12/19/23 10:54 O2 Flow Rate 3 12/19/23 10:32 BMI result Body Mass Index 45.8 Constitutional - Awake and Alert, No apparent distress Eyes - PERRLA, EOMI Cardiovascular - S1S2, RRR, No edema Respiratory - Normal lung expansion, Normal respiratory effort, No respiratory distress, CTA bilaterally Extremities - no calf tenderness bilaterally, no swelling Skin - Warm/Dry Neurological - Awake but groggy & oriented x3, CN II-XII in tact Psychological - Appropriate affect Results Labs 12/11/23 13:02 12/11/23 13:02 Assessment and Plan (1) History of total right hip replacement: Status: Acute Plan 43 year old male with history of unspecified asthma, RAE compliant with cpap, htn, who is morbidly obese with BMI >45 admitted to orthopedic surgery for OA R hip s/p VERITO with consult placed to hospitalist service for medical management. Has been groggy since arrival to the unit, suspect r/t combination of anesthesia effects and multiple narcotic administration. Briefly placed on CPAP but pt not tolerating and is more awake. Transitioned to NC maintaining oximetry 92%. pain levels more controlled. #OA R Hip s/p R VERITO POD 0 -plan per ortho surgery -post op grogginess likely multifactorial r/t multiple narcotic administration and effects of anesthesis. -DC cpap given pt more awake and not tolerating. Continue 3L supplemental O2 to maintain oximetry around 92% -Pain management per ortho. Narcan added prn #RAE -continue cpap bedtime #HTN -hold lisinopril and hctz for now. Consider resuming am. Will continue following blood pressures #Morbid obesity -weight loss efforts encouraged Thank you for this consult, we will continue following
[2023-12-19] MEDS: ceFAZolin Sodium/Dextrose,Iso 2 GM/50 ML PIGGYBACK IV (13:48)
[2023-12-19] MEDS: Docusate Sodium 100 MG CAPSULE PO (19:59)
[2023-12-19] MEDS: Celecoxib 200 MG CAPSULE PO (19:59)
--- NOTE | 2023-12-19 20:24 | P.DS_ITS ---
DS: Providers Provider Date of Service: 12/20/23 Date of admission: 12/19/23 06:09 Primary care physician: Juan Otto MD Consults: 12/19/23 11:10 Consult to Hospitalist Routine Comment: Consulting Provider: Hospitalist Reason For Exam: RAE DS: Diagnosis Discharge Diagnosis (1) History of total right hip replacement: Status: Acute DS: Summary Hospital Course Hospital Course: The patient underwent a successful right total hip arthroplasty, they were transferred to PACU and then to the floor to recover. During their stay, their vitals were stable, afebrile at 97.5. Labs were unremarkable, H/H 11.6/34.7. POD 1 they were started on Aspirin 325mg po bid for DVT ppx, they also received Physical Therapy services twice a day. Prior to discharge, their dressing was clean dry and intact, and the plan was to be discharged home with VNA services. Time Attestation Discharge Coordination Time (in mins): 30 Quality: Safe Use of Opioids Does Pt have an Active Cancer Diagnosis on the Problem List?: No Quality: Stroke Does the patient have a stroke diagnosis?: No Physical Exam Vital Signs: Vital Signs: Last Vital Signs Temp 97.5 F 12/19/23 19:38 Pulse 99 12/19/23 19:38 Resp 16 12/19/23 19:38 BP 128/61 12/19/23 19:38 Pulse Ox 96 12/19/23 19:38 O2 Del Method Nasal Cannula 12/19/23 19:38 O2 Flow Rate 3 12/19/23 19:38 BMI result Body Mass Index 45.8 Const: General: cooperative, healthy appearing and no acute distress Resp: Effort & Inspection: normal respiratory effort and able to speak in complete sentences Cardio: Rate: regular rate Peripheral pulses: Peripheral pulses 2+ throughout GI: Palpation (GI): Soft to palpation Skin: Lesions: no lesions Rashes: no rashes Extrem: Other: right hip dressing is c/d/i. Able to dorsi/plantar flex. Calf is supple and nontender. Sensation intact. Pedal pulse intact. DS: Data Data Completed and Pending Pending studies at discharge: Pending at discharge 12/19/23 08:13 Surgical [PTH] Routine Discharge Plan Discharge Anticipated Discharge Date/Time: 12/20/23 12:00 Patient Disposition: Home Health Service Discharge Diagnosis: s/p RTHA Referrals: Kristal Bob PA-C [Physician Marketing Proposal Specialist] - 01/04/24 2:30 pm Discharge Medications: New acetaminophen 325 mg Tablet 650 mg PO Q6H PRN (Reason: Pain, Mild (Pain Scale 1-3)) 30 Days Qty: 240 0RF aspirin 325 mg Tablet 325 mg PO BID 42 Days Qty: 84 0RF celecoxib 200 mg Capsule 200 mg PO BID 30 Days Qty: 60 0RF docusate sodium 100 mg Capsule 100 mg PO BID 30 Days Qty: 60 0RF oxycodone 5 mg Tablet 5 mg PO Q4H PRN (Reason: Pain, Moderate(Pain Scale 4-6)) 7 Days Qty: 42 0RF Rx Instructions: Partial Fill upon patient request. Continued hydrochlorothiazide 25 mg tablet 25 mg PO DAILY Qty: 90 3RF lisinopril 40 mg tablet 40 mg PO DAILY Qty: 90 3RF (DME) fam [facility] [place], [place] See Rx Instructions .MEDSUPPLY Qty: 1 0RF Rx Instructions: Folding Front wheeled walker albuterol sulfate 90 mcg/actuation HFA aerosol inhaler 2 puff inhalation Q4-6H PRN (Reason: shortness of breath or wheezing) Qty: 1 6RF fluticasone propion-salmeterol [AirDuo RespiClick] 232-14 mcg/actuation aerosol powdr breath activated 1 inh inhalation BID Qty: 1 3RF Discharge Orders: Discharge Order (Routine); Ordered 12/20/23 Ordered By: Mery Henderson Diet: Advance to usual diet Activity on Discharge: Use cane or walker Stand Alone Forms: Patient Portal Discharge page Print Language: Afghan Care Plan Goals: restore fxn to right hip Health Concerns: none Plan of Treatment: Physical Therapy for total hip arthroplasty: posterior precautions, gait training, ROM, strength Limit stair climbing No showering, no tub bath-keep dressing clean, dry and intact No driving x6 weeks Continue Aspirin x 6 weeks Follow up with [facility] [place] 2 weeks Assessment: stable for d/c
--- NOTE | 2023-12-19 20:25 | W.MHC.F2F ---
Service Date Service Date: 12/19/23 Encounter Date of encounter: 12/20/23 Reasons for Services Signs and symptoms assessed: s/p RTHA. Pt. is considered homebound due to recent surgery. Unable to drive, poor balance, poor gait mechanics. Reason for physical therapy: home safety and mobility, therapeutic exercises, restore joint function, gait/transfer training, assess need for DME and ADL training Reason for occupational therapy: home safety and mobility, therapeutic exercises, restore joint function, gait/transfer training, assess need for DME and ADL training Homebound: Leaving the home is medically contraindicated at this time without the asist of a device and/or another person due th the listed conditions above and below. Reason homebound: unsteady gait / fall risk, leg weakness, pain with ambulation, poor balance / fall risk and unable to drive Certification: Based on the above findings, I certify that this patient is confined to the home and needs intermittent [facility] care, physical therapy and/or speech therapy, or continues to need occupational therapy. The patient is under my care, and I have initiated the establishment of the plan of care. The patient will be followed by a physician who will periodically review the plan of care. Time Spent With Patient Time: Total time managing care of this patient today ____ minutes.
[2023-12-20] MEDS: oxyCODONE HCl Immed Release 5 MG TABLET PO (00:42)
[2023-12-20 03:04] VITALS: BP 148/79; PULSE 86; RESP 20; TEMP 36.1; O2SAT 98
[2023-12-20] MEDS: HYDROmorphone HCl 0.5 MG/0.5 ML SYRINGE 0.25 MG IVPUSH (04:47)
[2023-12-20 07:04] LABS: MANUAL DIFF FLAG NO
[2023-12-20 07:06] VITALS: BP 147/79; PULSE 90; RESP 17; TEMP 36.4; O2SAT 97
[2023-12-20 07:28] LABS: Basophils Percent Auto 0.2 % (0-2); Eosinophils Percent Auto 0.2 % (0-4); Hematocrit 34.7 % (42.0-52.0); Hemoglobin 11.6 g/dl (14.0-18.0); Imm Gran Abs Auto 0.06 X10*3/uL (0.00-0.03); Imm Gran Pct Auto 0.5 % (0.0-0.4); Lymphocytes Absolute Auto 1.9 X10*3/uL (1.2-4.9); Lymphocytes Percent Auto 15.2 % (20-40); Mean Corpuscular HGB Conc 33.4 g/dl (31.0-36.0); Mean Corpuscular Hemoglobin 30.3 pg (27.0-33.0); Mean Corpuscular Volume 90.6 fL (80.0-98.0); Mean Platelet Volume 10.5 fL (9.4-12.4); Monocytes Absolute Auto 1.2 X10*3/uL (0.1-1.2); Monocytes Percent Auto 9.6 % (2-11); Neutrophils Absolute Auto 9.2 x10*3/uL (2.0-8.3); Neutrophils Percent Auto 74.3 % (45-73); Platelet Count 201 X10*3/uL (160-400); Red Blood Count 3.83 X10*6/uL (4.60-5.80); Red Cell Distribution Width 12.8 % (11.0-16.0); White Blood Count 12.3 X10*3/uL (4.8-10.8)
[2023-12-20 07:30] LABS: Anion Gap 13 (12-20); Blood Urea Nitrogen 17 mg/dL (9-16); Carbon Dioxide 24 mmol/L (22-29); Chloride 103 mmol/L (96-108); Creatinine Clr Calc Pharmacy 170.7; Estimated Glomerular Filt Rate > 60; Glucose Fasting 137 mg/dL (60-99); Potassium 3.9 mmol/L (3.3-5.1); Sodium 136 mmol/L (135-145)
[2023-12-20] MEDS: Acetaminophen 325 MG TABLET 650 MG PO (08:27)
[2023-12-20] MEDS: Docusate Sodium 100 MG CAPSULE PO (08:27)
[2023-12-20] MEDS: Aspirin 325 MG TABLET PO (08:27)
[2023-12-20] MEDS: Celecoxib 200 MG CAPSULE PO (08:27)
[2023-12-20] MEDS: oxyCODONE HCl ER 10 MG TAB.ER.12H PO (08:27)
--- NOTE | 2023-12-20 08:32 | MHC.CM.PN ---
pt dcd today with hvns
--- NOTE | 2023-12-20 08:58 | HO.POSTANES ---
Post Anesthesia Evaluation Post Anesthesia Evaluation Date of Service: 12/19/23 Vital Signs: Vital Signs Temp Pulse Resp BP Pulse Ox O2 Del Method O2 Flow Rate 12/20/23 07:06 97.5 F 90 17 147/79 H 97 Nasal Cannula 3 12/20/23 03:04 97 F 86 20 148/79 H 98 Nasal Cannula 3 Anesthesia: Monitored and Spinal Mental Status: Awake Pain Control: Satisfactory Nausea/Vomiting: None Hydration: Adequate Anesthesia-Related Issues: No Anes. Related Issues
--- NOTE | 2023-12-20 10:28 | PC.NURSE ---
Upon discharge, pt ambulating independently with walker. On room air. A&Ox4. Discharge instructions reviewed and understood. Pt offered no complaints, questions, concerns. Discharged home, private transport.
--- NOTE | 2023-12-28 07:22 | P.OP_ITS ---
Operative Note Operative Note Date of Service: 12/19/23 Narrative: Date of Service: 12/19/23 Pre-op diagnosis: Right hip OA Post-op diagnosis: same Procedure: Right VERITO Implants: [place] Trident 2 56 [place] Accolade 2 #7 132 deg/ +0 ceramic 36 Surgeon: Eric Kelley MD Anesthesia: GETA and local Was an Digital Communications Manager used for this Procedure?: Yes Digital Communications Manager: Kristal Bob Estimated blood loss (mL): 250 IV fluids (mL): 1,200 Pathology: other Condition: stable Disposition: PACU Procedure in detail: Patient was brought into the operating room and placed in the right lateral decubitus position. All bony prominences were well padded and the limb was prepped and draped in standard sterile fashion. A time-out was called to identify proper site procedure proper surgeon IV antibiotics and 1 g of transaxemic acid were administered. I began by making a curvilinear incision over the posterolateral aspect of the greater trochanter. Dissection was taken down to the tensor fascia which was incised in line with the incision and a Charnley retractor was placed. Cautery was used to maintain hemostasis. The hip was internally rotated and the external rotators were identified. The vessels were cauterized and a full-thickness capsular/external rotator layer was developed starting just proximal to the piriformis. This layer was tagged and a dull Hohmann retractor was placed underneath the neck in the hip was dislocated. A neck cut was made 1 cm proximal to the lesser trochanter and the head and neck were removed and measured 52mm on the back table. The head was eburnated. I then removed the labrum and cauterized the fovea. I started with a 48 reamer and medialized to the inner table. I sequentially reamed up to a size 56 and impacted a 56 mm cup at 45 degrees of inclination and 25 degrees of version. I then placed a 20 deg posterior lipped liner and turned my attention to the femur. I identified the piriformis insertion and used this as a starting point for my berny cutter. The medius tendon was protected with a Hibs retractor. A Charnley awl was inserted in the canal and a curved curette used to remove the lateral bone. I irrigated copiously. I then sequentially broached in the patient's natural version to a size 5 and placed my trial implants. I used a #7/127/+0 based on my pre-operative template. Using a trail head I took the hip through range of motion. I was satisfied with the stability. I removed all instrumentation and copiously irrigated. I placed my final femoral implant and again took the hip through range of motion and was satisfied with the stability and length. The final +0 implant was impacted in place and the hip reduced. I then irrigated copiously and placed 1 g of local transaxemic acid. I performed a capsular closure with 2.0 fiberwire, Enrrique's fascia with 0 Vicryl, subcuticular with 2-0 Vicryl and the skin with peewee. Patient was placed into a sterile dressing. Patient was extubated brought to the recovery room in stable condition. There were no known complications.
== END 2023-12-20 10:31 | disposition home health service (06) | DRG 324 ==
LOC: HO.SSSA 06:11 → HO.S3 10:37
PROVIDERS: Nurse Practitioner; Physician Assistant; Admitting Provider Orthopaedic Surgery; PCP Internal Medicine; Visit Provider Orthopaedic Surgery
PROC: 0SR903A Replacement of Right Hip Joint with Ceramic Synthetic Substitute, Uncemented, Open Approach (ICD-10-PCS; CPT 27130; principal; 2023-12-19 07:30)
DX: M16.50 Unilateral post-traumatic osteoarthritis, unspecified hip (principal); E66.01 Morbid (severe) obesity due to excess calories; G47.33 Obstructive sleep apnea (adult) (pediatric); Z68.42 Body mass index [BMI] 45.0-49.9, adult; I10 Essential (primary) hypertension; J44.9 Chronic obstructive pulmonary disease, unspecified; Z87.891 Personal history of nicotine dependence; Z79.51 Long term (current) use of inhaled steroids; Z79.899 Other long term (current) drug therapy
CPT/HCPCS: 27130; 36415; 72170; 80048; 85025; 85027; 86850; 86900; 86901; 87640; 87641; 88304; 88311; 93005; 97116; 97162; 97530; C1776; J0131; J0690; J1100; J1170; J2250; J2405; J2704; J2795; J3010; J7120

== ENCOUNTER → 2023-12-19 06:09 | Outpatient (BNV) | payer BC, SELFPAY | PROVIDERS: Admitting Provider Orthopaedic Surgery; PCP Internal Medicine; Visit Provider Orthopaedic Surgery | DX: M16.11 Unilateral primary osteoarthritis, right hip (principal) | CPT/HCPCS: 27130; 99024; 99238; G0180 ==

== ENCOUNTER → 2023-12-19 06:09 | Outpatient (BNV) | payer BC, SELFPAY | PROVIDERS: Admitting Provider Orthopaedic Surgery; PCP Internal Medicine; Visit Provider Physician Assistant | DX: Z96.641 Presence of right artificial hip joint (principal) | CPT/HCPCS: 99222 ==

== ENCOUNTER 2023-12-22 13:05 | Outpatient (AMB) | payer BC, SELFPAY ==
--- NOTE | 2023-12-22 13:24 | MHC.OFFVIS ---
Intake Visit Reasons: OV Right hip wound check Allergies cashew nut [CASHEW NUT] Allergy (Severe, Verified 12/14/23 14:06) ANAPHYLAXIS HPI HPI OV Right hip wound check: Details: here for wound check doing well otherwise PFSH Medical History Sleep apnea Asthma Osteoarthritis Skin lesions Morbid obesity Hypertension Surgical History History of surgical removal of skin lesion Family History Father Diabetes Mother No problems noted. Social History Household Members: Other Household Members Other:: sister Housing: House Housing Other:: basement apartment with walk-out door Are you a primary resident care associate to a significant other at home: No Do you presently have visiting nurse or other home services: No Alcohol intake: current Alcohol intake frequency: does not drink Patient Tobacco Use Status: Former Tobacco user Quit Date: 09/2023 Tobacco use type: Cigarette Years Smoked: 25 e-Cigarette/Vaping Use: Never Used Second Hand Smoke Exposure: No service: No Current occupational status: employed Cognitive needs: No Hearing needs: No Vision needs: No Physical Exam Extrem Other: inc c/d/i Assessment & Plan Assessment & Plan (1) History of total right hip replacement: Code(s): Z96.641 - Presence of right artificial hip joint Category: Surgical Plan: Continue WBAT PO pain control f/u as scheduled Coding Level of Care Code Global (37682) Diagnoses History of total right hip replacement Z96.641
== END 2023-12-22 13:25 | disposition home or self-care (01) ==
PROVIDERS: PCP Internal Medicine; Visit Provider Orthopaedic Surgery
DX: Z96.641 Presence of right artificial hip joint (principal)
CPT/HCPCS: 99024

== ENCOUNTER → 2023-12-22 13:05 | Outpatient (BNVA) | payer BC, SELFPAY | PROVIDERS: PCP Internal Medicine; Visit Provider Physician Assistant ==

== ENCOUNTER 2023-12-27 12:18 | Outpatient (AMB) | payer BC, SELFPAY ==
--- NOTE | 2023-12-27 12:30 | A.OFFVIS_ITS ---
Intake Visit Reasons: PO - RT VERITO 12/19/23 NE/Bandage change Intake Note: Jethro is a 43 year old male who presents today for a bandage change. Allergies cashew nut [CASHEW NUT] Allergy (Severe, Verified 12/27/23 12:31) ANAPHYLAXIS HPI HPI PO - RT VERITO 12/19/23 NE/Bandage change: Details: 43-year-old male who returns to the office today for post-op right VERITO, 12/19/[address] Kelley. He presents today for a bandage change. He is working on physical therapy as instructed. He has no other concerns today. [facility] Medical History Sleep apnea Asthma Osteoarthritis Skin lesions Morbid obesity Hypertension Surgical History History of surgical removal of skin lesion Family History Father Diabetes Mother No problems noted. Social History Household Members: Other Household Members Other:: sister Housing: House Housing Other:: basement apartment with walk-out door Are you a primary career resource technician to a significant other at home: No Do you presently have visiting nurse or other home services: No Alcohol intake: current Alcohol intake frequency: does not drink Patient Tobacco Use Status: Former Tobacco user Quit Date: 09/2023 Tobacco use type: Cigarette Years Smoked: 25 e-Cigarette/Vaping Use: Never Used Second Hand Smoke Exposure: No service: No Current occupational status: employed Cognitive needs: No Hearing needs: No Vision needs: No Review of Systems Const All systems reviewed & are unremarkable except as noted in HPI and below Physical Exam Extrem Other: Right hip: Incision clean, dry and intact. No erythema. Some ecchymosis without drainage. Calf supple, nontender. NVI. Assessment & Plan Assessment & Plan (1) History of total right hip replacement: Code(s): Z96.641 - Presence of right artificial hip joint Category: Surgical Plan Aquasol dressing was applied. He will continue working with physical therapy and see back in 1 week for routine postop appointment, sooner if needed. Patient Instructions: Scribed for Kristal Bob PA-C, by Silverio Milner, durable medical equipment technician, on 12/27/2023 at 12:30 PM EST.? I, Carlito-Vero Bob PA-C, have personally reviewed and agree with the information entered by the scribe. Coding Level of Care Code Global (46922) Diagnoses History of total right hip replacement Z96.641
== END 2023-12-27 14:35 | disposition home or self-care (01) ==
LOC: HO.HOS 12:18
PROVIDERS: PCP Internal Medicine; Visit Provider Physician Assistant
DX: Z96.641 Presence of right artificial hip joint (principal)
CPT/HCPCS: 99024

== ENCOUNTER → 2023-12-27 12:18 | Outpatient (BNVA) | payer BC, SELFPAY | PROVIDERS: PCP Internal Medicine; Visit Provider Physician Assistant ==

== ENCOUNTER 2024-01-01 14:42 | Outpatient (AMB) | payer BC, SELFPAY ==
--- NOTE | 2024-01-01 14:59 | A.OFFVIS_ITS ---
Intake Visit Reasons: OV-post op /bandage change Intake Note: Jethro is a 43 year old male who presents today for a bandage change/post op s/p RT VERITO 12/19/23 NE. Patient reports he is doing well, just his bandage keeps coming down and getting stuck on everything. Allergies cashew nut [CASHEW NUT] Allergy (Severe, Verified 01/01/24 15:04) ANAPHYLAXIS HPI HPI OV-post op /bandage change: Details: 43-year-old male who presents in the office today for a bandage change; 13 days status post right total hip arthroplasty, which was performed on 12/19/[address] Kelley. While in the office today the patient reports he is doing well. He states his bandage keeps coming down and getting stuck on everything. [facility] Medical History Sleep apnea Asthma Osteoarthritis Skin lesions Morbid obesity Hypertension Surgical History History of surgical removal of skin lesion Family History Father Diabetes Mother No problems noted. Social History Household Members: Other Household Members Other:: sister Housing: House Housing Other:: basement apartment with walk-out door Are you a primary morning caregiver to a significant other at home: No Do you presently have visiting nurse or other home services: No Alcohol intake: current Alcohol intake frequency: does not drink Patient Tobacco Use Status: Former Tobacco user Quit Date: 09/2023 Tobacco use type: Cigarette Years Smoked: 25 e-Cigarette/Vaping Use: Never Used Second Hand Smoke Exposure: No service: No Current occupational status: employed Cognitive needs: No Hearing needs: No Vision needs: No Review of Systems Const All systems reviewed & are unremarkable except as noted in HPI and below Physical Exam Const General: cooperative, healthy appearing and no acute distress Resp Effort & Inspection: normal respiratory effort and able to speak in complete sentences Cardio Rate: regular rate Peripheral pulses: Peripheral pulses 2+ throughout GI Palpation (GI): Soft to palpation Skin Lesions: no lesions Rashes: no rashes Extrem Other: Right hip: Incision site is clean, dry, and intact. Lloyd intact. No surrounding erythema or drainage. No signs of infection. NVI. Assessment & Plan Assessment & Plan (1) History of total right hip replacement: Onset Date: ~12/19/23 Comment: Dr. Eric Kelley Code(s): Z96.641 - Presence of right artificial hip joint Category: Surgical Plan Mr. Rinaldi is a 43-year-old male who presents in the office today for a bandage c hange; 13 days status post right total hip arthroplasty, which was performed on 12/19/[address] Kelley. While in the office today the patient reports he is doing well. He states his bandage keeps coming down and getting stuck on everything. Lloyd were removed and steri-stripes were applied. Patient was given a prescription for outpatient physical therapy. Follow up will be in [address] Kelley, or sooner if needed. Orders: Orders PT Evaluation and Treatment 01/01/24 Z96.641 - Presence of right artificial hip joint Patient Instructions: Scribed by Em Jacome medical office rep, for Mery Henderson PA-C on at 5:11 pm, EST. Coding Level of Care Code Global (36706) Diagnoses History of total right hip replacement Z96.641
== END 2024-01-01 15:31 | disposition home or self-care (01) ==
PROVIDERS: PCP Internal Medicine; Visit Provider Physician Assistant
DX: Z96.641 Presence of right artificial hip joint (principal)
CPT/HCPCS: 99024

== ENCOUNTER → 2024-01-01 14:42 | Outpatient (BNVA) | payer BC, SELFPAY | PROVIDERS: PCP Internal Medicine; Visit Provider Physician Assistant ==

== ENCOUNTER 2024-01-29 07:52 | Outpatient (REF) | payer BC, SELFPAY | END 2024-01-29 07:53 | disposition home or self-care (01) | LOC: HO.HOSX 07:52 | PROVIDERS: Visit Provider Orthopaedic Surgery | DX: Z13.89 Encounter for screening for other disorder (principal) ==

== ENCOUNTER 2024-02-13 21:04 | Emergency (ER) | payer BC, SELFPAY ==
[2024-02-13 21:07] VITALS: BP 120/96; PULSE 105; RESP 22; TEMP 36.8; O2SAT 96; BMI 42.4
[2024-02-13 21:24] LABS: MANUAL DIFF FLAG NO
[2024-02-13 21:27] LABS: Basophils Absolute Auto 0.1 X10*3/uL (0.0-0.2); Basophils Percent Auto 0.7 % (0-2); Eosinophils Absolute Auto 0.7 X10*3/uL (0.0-0.4); Eosinophils Percent Auto 4.8 % (0-4); Hematocrit 42.5 % (42.0-52.0); Hemoglobin 14.3 g/dl (14.0-18.0); Imm Gran Abs Auto 0.05 X10*3/uL (0.00-0.03); Imm Gran Pct Auto 0.3 % (0.0-0.4); Lymphocytes Absolute Auto 2.7 X10*3/uL (1.2-4.9); Lymphocytes Percent Auto 18.6 % (20-40); Mean Corpuscular HGB Conc 33.6 g/dl (31.0-36.0); Mean Corpuscular Hemoglobin 30.6 pg (27.0-33.0); Mean Platelet Volume 9.8 fL (9.4-12.4); Monocytes Percent Auto 6.9 % (2-11); Neutrophils Absolute Auto 10.1 x10*3/uL (2.0-8.3); Neutrophils Percent Auto 68.7 % (45-73); Platelet Count 293 X10*3/uL (160-400); Red Blood Count 4.67 X10*6/uL (4.60-5.80); Red Cell Distribution Width 12.8 % (11.0-16.0); White Blood Count 14.7 X10*3/uL (4.8-10.8)
[2024-02-13 21:40] LABS: Anion Gap 14 (12-20); Blood Urea Nitrogen 16 mg/dL (9-16); Calcium 9.6 mg/dL (8.4-10.2); Carbon Dioxide 25 mmol/L (22-29); Chloride 103 mmol/L (96-108); Creatinine Clr Calc Pharmacy 136.2; Estimated Glomerular Filt Rate > 60; Glucose Random 117 mg/dL (60-115); Potassium 4.2 mmol/L (3.3-5.1); Sodium 138 mmol/L (135-145)
[2024-02-13 23:04] VITALS: BP 142/81; PULSE 93; RESP 20; TEMP 36.7; O2SAT 98
--- NOTE | 2024-02-13 23:43 | ED_ITS ---
HPI - Skin/Abscess/Foreign Bdy General Chief complaint: Skin/Abscess/Foreign Body Stated complaint: ? bite swollen groin Time Seen by Provider: 02/13/24 23:40 Source: patient Mode of arrival: ambulatory Limitations: no limitations History of Present Illness ED Provider: norma RIVERA narrative: Patient is nondiabetic noticed small swelling of the left groin area 2 days ago got worse today thought to the ingrown hair no history of similar lesions in the past, no fever no chills no scrotal swelling Related Data Previous Rx's ?Medication ?Instructions ?Recorded albuterol sulfate 90 mcg/actuation 2 puff inhalation Q4-6H PRN 01/10/23 aerosol inhaler shortness of breath or wheezing #1 ea hydrochlorothiazide 25 mg tablet 25 mg PO DAILY #90 tabs 03/29/23 lisinopril 40 mg tablet 40 mg PO DAILY #90 tabs 03/29/23 walker #1 ea 10/12/23 fluticasone 232 mcg-salmeterol 14 1 inh inhalation BID #1 ea 11/17/23 mcg/actuation breath activated powdr (AirDuo RespiClick) acetaminophen 325 mg tablet 650 mg (2 x 325 mg) PO Q6H PRN 12/19/23 Pain, Mild (Pain Scale 1-3) 30 days #240 tabs aspirin 325 mg tablet 325 mg PO BID 42 days #84 tabs 12/19/23 celecoxib 200 mg capsule 200 mg PO BID 30 days #60 caps 12/19/23 docusate sodium 100 mg capsule 100 mg PO BID 30 days #60 caps 12/19/23 oxycodone 5 mg tablet 5 mg PO Q4H PRN Pain, 12/19/23 Moderate(Pain Scale 4-6) 7 days #42 tabs cane #1 ea 12/27/23 cephalexin 500 mg capsule 500 mg PO QID 10 days #40 caps 02/14/24 doxycycline hyclate 100 mg tablet 100 mg PO BID #20 tabs 02/14/24 ibuprofen 600 mg tablet 600 mg PO Q6H PRN fever or pain 02/14/24 #30 tabs Allergies Allergy/AdvReac Type Severity Reaction Status Date / Time cashew nut [CASHEW NUT] Allergy Severe ANAPHYLAXIS Verified 02/13/24 21:10 Review of Systems 2 Review of Systems: Yes all other systems are reviewed and are negative PMFSH Past Medical History Medical History Sleep apnea Asthma Osteoarthritis Skin lesions Morbid obesity Hypertension Surgical History History of surgical removal of skin lesion Family History Family History Father Diabetes Mother No problems noted. Social History Social History Household Members: Other Household Members Other:: sister Housing: House Housing Other:: basement apartment with walk-out door Are you a primary child care assistant to a significant other at home: No Do you presently have visiting nurse or other home services: No Alcohol intake: current Alcohol intake frequency: holidays/special occasions only Patient Tobacco Use Status: Former Tobacco user Tobacco use type: Cigarette Years Smoked: 25 e-Cigarette/Vaping Use: Never Used Second Hand Smoke Exposure: No Use of substances other than those prescribed or required for medical reasons: No Advance Directives: No Advance Directives Information Provided: Yes Do you have a plan to hurt others: No Plan service: No Current occupational status: employed Cognitive needs: No Hearing needs: No Vision needs: No Physical Exam 2 Vital Signs: Vital Signs: Last Vital Signs Temp 98.0 F 02/14/24 01:17 Pulse 115 H 02/14/24 01:17 Resp 20 02/14/24 01:17 BP 154/84 H 02/14/24 01:17 Pulse Ox 98 02/14/24 01:17 O2 Del Method Room Air 02/14/24 01:17 BMI result Body Mass Index 42.4 Appearance: Alert. Oriented X3. No acute distress. ENT: Pharynx normal. Oral Mucosa moist Neck: Normal inspection. Neck supple. CVS: Normal heart rate and rhythm. Pulses normal. Respiratory: No respiratory distress. Equal air entry bilateral, Abdomen: Soft and nontender. Bowel sounds are present, no mass palpable, no CVA tenderness 6 x 5 cm abscess in the left groin area separate from the scrotum Skin: Skin warm and dry. Normal skin color. Normal skin turgor. Extremities: No lower extremity edema. No calf tenderness Neuro: Oriented X 3. GI: Abdomen image: 1. 6 x 5 cm abscess in left inguinal area from the scrotum Medications Administered Discontinued Medications Generic Name Dose Route Start Last Admin Trade Name Freq PRN Reason Stop Dose Admin Cephalexin HCl 500 mg 02/13/24 23:46 02/14/24 00:00 Cephalexin 500 Mg Capsule PO 02/13/24 23:47 500 mg ONCE ONE Administration Doxycycline Monohydrate 100 mg 02/13/24 23:46 02/13/24 23:59 Doxycycline Monohydrate 100 Mg Capsule PO 02/13/24 23:47 100 mg ONCE ONE Administration Ibuprofen 600 mg 02/14/24 01:02 02/14/24 01:07 Ibuprofen 600 Mg Tablet PO 02/14/24 01:03 600 mg ONCE ONE Administration Lidocaine HCl 10 ml 02/13/24 23:46 02/14/24 00:00 Lidocaine Hcl 1 % Mpf 5 Ml Vial INFILTRATI 02/13/24 23:47 10 ml ONCE ONE Administration Medical Decision Making Medical Decision Making [facility] Narrative: Patient with left inguinal abscess I and D was done patient advised to stay in the hospital for IV vancomycin in admission but patient refused says he will take only p.o. antibiotics as to go home because his mother has severe dementia and has to take care of her patient is advised to come back to the ER for IV antibiotic Differential Diagnosis Differential Diagnoses: The differential diagnosis associated with the presentation includes Groin abscess/perineal abscess/scrotal abscess Admission/Observation Consideration of admission/observation: Escalation of care including admission/observation considered Lab Data [facility] Lab Attestation statement: I reviewed the patient's lab results. 02/13/24 21:20 02/13/24 21:20 Labs: Lab Results 02/13/24 Range/Units 21:20 WBC 14.7 H (4.8-10.8) X10*3/uL RBC 4.67 D (4.60-5.80) X10*6/uL Hgb 14.3 D (14.0-18.0) g/dl Hct 42.5 D (42.0-52.0) % MCV 91.0 (80.0-98.0) fL MCH 30.6 (27.0-33.0) pg MCHC 33.6 (31.0-36.0) g/dl RDW 12.8 (11.0-16.0) % Plt Count 293 D (160-400) X10*3/uL MPV 9.8 (9.4-12.4) fL Immature Gran % (Auto) 0.3 (0.0-0.4) % Neut % (Auto) 68.7 (45-73) % Lymph % (Auto) 18.6 L (20-40) % Rankin % (Auto) 6.9 (2-11) % Eos % (Auto) 4.8 H (0-4) % Baso % (Auto) 0.7 (0-2) % Lymph # (Auto) 2.7 (1.2-4.9) X10*3/uL Rankin # (Auto) 1.0 (0.1-1.2) X10*3/uL Eos # (Auto) 0.7 H (0.0-0.4) X10*3/uL Baso # (Auto) 0.1 (0.0-0.2) X10*3/uL Abs Immat Gran (auto) 0.05 H (0.00-0.03) X10*3/uL Absolute Neuts (auto) 10.1 H (2.0-8.3) x10*3/uL Absolute Nucleated RBC 0.000 (0.0-0.012) X10*3/uL Nucleated RBC % (auto) 0.0 (0.0-0.2) /100WBC Sodium 138 (135-145) mmol/L Potassium 4.2 (3.3-5.1) mmol/L Chloride 103 (96-108) mmol/L Carbon Dioxide 25 (22-29) mmol/L Anion Gap 14 (12-20) BUN 16 (9-16) mg/dL Creatinine 1.08 (0.5-1.4) mg/dL Estim Creat Clear Calc 136.2 Estimated GFR > 60 Random Glucose 117 H (60-115) mg/dL Calcium 9.6 D (8.4-10.2) mg/dL Procedures Abscess I/D Site: abdomen (Left groin) Side (if applicable): left Local Anesthetic: lidocaine 1% Amount of anesthesia used (mL): 15 Technique: incised with blade Amount of fluid expressed (mL): 5 Sent for culture/gram staining?: Yes Packing used?: iodoform Complications: pain Discharge Plan Discharge Clinical Impression: Abscess of skin or subcutaneous tissue Patient Disposition: Home, Self-Care Instructions: Abscess Incision and Drainage (DC) Additional Instructions: Local care as advised Report to the ER if swelling or redness gets worse Report to ER in 2 days for packing removal Take antibiotic as prescribed Prescriptions: New cephalexin 500 mg capsule 500 mg PO QID 10 Days Qty: 40 0RF ibuprofen 600 mg tablet 600 mg PO Q6H PRN (Reason: fever or pain) Qty: 30 0RF doxycycline hyclate 100 mg tablet 100 mg PO BID Qty: 20 0RF No Action hydrochlorothiazide 25 mg tablet 25 mg PO DAILY Qty: 90 3RF lisinopril 40 mg tablet 40 mg PO DAILY Qty: 90 3RF (DME) walker Misc See Rx Instructions .MEDSUPPLY Qty: 1 0RF Rx Instructions: Folding Front wheeled walker (DME) cane Device See Rx Instructions .MEDSUPPLY Qty: 1 0RF Rx Instructions: single-point cane acetaminophen 325 mg Tablet 650 mg PO Q6H PRN (Reason: Pain, Mild (Pain Scale 1-3)) 30 Days Qty: 240 0RF aspirin 325 mg Tablet 325 mg PO BID 42 Days Qty: 84 0RF celecoxib 200 mg Capsule 200 mg PO BID 30 Days Qty: 60 0RF docusate sodium 100 mg Capsule 100 mg PO BID 30 Days Qty: 60 0RF oxycodone 5 mg Tablet 5 mg PO Q4H PRN (Reason: Pain, Moderate(Pain Scale 4-6)) 7 Days Qty: 42 0RF Rx Instructions: Partial Fill upon patient request. albuterol sulfate 90 mcg/actuation HFA aerosol inhaler 2 puff inhalation Q4-6H PRN (Reason: shortness of breath or wheezing) Qty: 1 6RF fluticasone propion-salmeterol [AirDuo RespiClick] 232-14 mcg/actuation aerosol powdr breath activated 1 inh inhalation BID Qty: 1 3RF Interventions: ED Discharge Assessment Last Done: 02/14/24 01:17 Discharge Date/Time: 02/14/24 01:18 Print Language: Indonesian
[2024-02-13] MEDS: Doxycycline Monohydrate 100 MG CAPSULE PO (23:59)
[2024-02-14] MEDS: cephALEXin 500 MG CAPSULE PO
[2024-02-14] MEDS: Lidocaine HCl 1 % MPF 5 ML VIAL 10 ML INFILTRATI
--- NOTE | 2024-02-14 00:02 | PC.NURSE ---
Medicated pt per mar, awaiting provider.
--- NOTE | 2024-02-14 00:03 | PC.NURSE ---
Took over care from SHIRA Madsen at 23:00.
[2024-02-14 00:38] VITALS: BP 122/90; PULSE 102; RESP 20; TEMP 37.1; O2SAT 97
[2024-02-14] MEDS: Ibuprofen 600 MG TABLET PO (01:07)
--- NOTE | 2024-02-14 01:14 | PC.NURSE ---
pt refusing to be admitted, provider into discuss plan of care and treatment, medicated per mar, reviewed discharge instruction with pt. pt verbalized understanding.
[2024-02-14 01:17] VITALS: BP 154/84; PULSE 115; RESP 20; TEMP 36.7; O2SAT 98
== END 2024-02-14 01:18 | disposition home or self-care (01) ==
PROVIDERS: Emergency Provider Internal Medicine; PCP Internal Medicine
DX: L02.214 Cutaneous abscess of groin (principal); L73.1 Pseudofolliculitis barbae
CPT/HCPCS: 36415; 80048; 85025; 87070; 87077; 87186; 87205; 99284

== ENCOUNTER 2024-02-16 00:07 | Emergency (ER) | payer BC, SELFPAY ==
[2024-02-16 00:27] VITALS: BP 125/87; PULSE 108; RESP 18; TEMP 37; O2SAT 96; BMI 42.5
[2024-02-16 01:51] VITALS: BP 141/103; PULSE 121; RESP 20; TEMP 37; O2SAT 99
--- NOTE | 2024-02-16 02:44 | ED.GENADULT ---
HPI - General Adult General Chief complaint: General Medical Stated complaint: gen med, here recently Time Seen by Provider: 02/16/24 02:43 Source: patient Mode of arrival: ambulatory Limitations: no limitations History of Present Illness ED Provider: norma RIVERA narrative: Patient was seen here 02/13/2024 for left inguinal abscess status post I and D and packing comes here for wound recheck wound has improved in color and pain no swelling no tenderness in the scrotum area no fever no chills Related Data Previous Rx's ?Medication ?Instructions ?Recorded albuterol sulfate 90 mcg/actuation 2 puff inhalation Q4-6H PRN 01/10/23 aerosol inhaler shortness of breath or wheezing #1 ea hydrochlorothiazide 25 mg tablet 25 mg PO DAILY #90 tabs 03/29/23 lisinopril 40 mg tablet 40 mg PO DAILY #90 tabs 03/29/23 walker #1 ea 10/12/23 fluticasone 232 mcg-salmeterol 14 1 inh inhalation BID #1 ea 11/17/23 mcg/actuation breath activated powdr (AirDuo RespiClick) acetaminophen 325 mg tablet 650 mg (2 x 325 mg) PO Q6H PRN 12/19/23 Pain, Mild (Pain Scale 1-3) 30 days #240 tabs aspirin 325 mg tablet 325 mg PO BID 42 days #84 tabs 12/19/23 celecoxib 200 mg capsule 200 mg PO BID 30 days #60 caps 12/19/23 docusate sodium 100 mg capsule 100 mg PO BID 30 days #60 caps 12/19/23 oxycodone 5 mg tablet 5 mg PO Q4H PRN Pain, 12/19/23 Moderate(Pain Scale 4-6) 7 days #42 tabs cane #1 ea 12/27/23 cephalexin 500 mg capsule 500 mg PO QID 10 days #40 caps 02/14/24 cephalexin 500 mg tablet 500 mg PO Q6H 7 days #28 tabs 02/14/24 doxycycline hyclate 100 mg capsule 100 mg PO BID 7 days #14 caps 02/14/24 doxycycline hyclate 100 mg tablet 100 mg PO BID #20 tabs 02/14/24 ibuprofen 600 mg tablet 600 mg PO Q6H PRN fever or pain 02/14/24 #30 tabs ibuprofen 600 mg tablet 600 mg PO Q6H PRN fever or pain 02/14/24 #30 tabs Allergies Allergy/AdvReac Type Severity Reaction Status Date / Time cashew nut [CASHEW NUT] Allergy Severe ANAPHYLAXIS Verified 02/16/24 00:29 Review of Systems Review of Systems: Yes all other systems are reviewed and are negative [facility] Past Medical History Medical History Sleep apnea Asthma Osteoarthritis Skin lesions Morbid obesity Hypertension Surgical History History of surgical removal of skin lesion Family History Family History Father Diabetes Mother No problems noted. Social History Social History Household Members: Other Household Members Other:: sister Housing: House Housing Other:: basement apartment with walk-out door Are you a primary patient care director to a significant other at home: No Do you presently have visiting nurse or other home services: No Alcohol intake: current Alcohol intake frequency: holidays/special occasions only Patient Tobacco Use Status: Former Tobacco user Tobacco use type: Cigarette Years Smoked: 25 Smoked in Last 30 Days: No e-Cigarette/Vaping Use: Never Used Second Hand Smoke Exposure: No Use of substances other than those prescribed or required for medical reasons: No Any prior treatment program specific to substance use: No Advance Directives: No Advance Directives Information Provided: No Do you have a plan to hurt others: No Plan service: No Current occupational status: employed Cognitive needs: No Hearing needs: No Vision needs: No Physical Exam ED Vital Signs: Vital Signs - 24 hr 02/16/24 00:27 02/16/24 01:51 02/16/24 02:58 Temperature 98.6 F 98.6 F Pulse Rate 108 H 121 H 105 H Respiratory Rate 18 20 19 Blood Pressure 125/87 141/103 H 127/106 H Pulse Oximetry 96 99 96 Oxygen Delivery Method Room Air Room Air Room Air 02/16/24 03:10 Temperature 98.6 F Pulse Rate 105 H Respiratory Rate 19 Blood Pressure 127/106 H Pulse Oximetry 96 Oxygen Delivery Method Room Air BMI result Body Mass Index 42.5 Male genitals images: 1. Healing abscess minimal discharge significant improvement in the erythema Medical Decision Making Medical Decision Making MDM Narrative: Patient has markedly improvement in the abscess on the left inguinal area after I and D previous pus cultures grew staph aureus patient is on doxycycline and cephalexin final culture report is pending sensitivity Discharge Plan Discharge Clinical Impression: Abscess of groin, left Patient Disposition: Home, Self-Care Instructions: Abscess Follow-up (ED) Additional Instructions: Continue antibiotics for total of 10 days Final culture still pending will call you if need to change any antibiotics Report to the ER if worsening of the swelling or pain Prescriptions: No Action hydrochlorothiazide 25 mg tablet 25 mg PO DAILY Qty: 90 3RF lisinopril 40 mg tablet 40 mg PO DAILY Qty: 90 3RF (DME) walker Misc See Rx Instructions .MEDSUPPLY Qty: 1 0RF Rx Instructions: Folding Front wheeled walker (DME) cane Device See Rx Instructions .MEDSUPPLY Qty: 1 0RF Rx Instructions: single-point cane cephalexin 500 mg capsule 500 mg PO QID 10 Days Qty: 40 0RF ibuprofen 600 mg tablet 600 mg PO Q6H PRN (Reason: fever or pain) Qty: 30 0RF doxycycline hyclate 100 mg tablet 100 mg PO BID Qty: 20 0RF acetaminophen 325 mg Tablet 650 mg PO Q6H PRN (Reason: Pain, Mild (Pain Scale 1-3)) 30 Days Qty: 240 0RF aspirin 325 mg Tablet 325 mg PO BID 42 Days Qty: 84 0RF celecoxib 200 mg Capsule 200 mg PO BID 30 Days Qty: 60 0RF docusate sodium 100 mg Capsule 100 mg PO BID 30 Days Qty: 60 0RF oxycodone 5 mg Tablet 5 mg PO Q4H PRN (Reason: Pain, Moderate(Pain Scale 4-6)) 7 Days Qty: 42 0RF Rx Instructions: Partial Fill upon patient request. doxycycline hyclate 100 mg capsule 100 mg PO BID 7 Days Qty: 14 0RF cephalexin 500 mg tablet 500 mg PO Q6H 7 Days Qty: 28 0RF ibuprofen 600 mg tablet 600 mg PO Q6H PRN (Reason: fever or pain) Qty: 30 0RF albuterol sulfate 90 mcg/actuation HFA aerosol inhaler 2 puff inhalation Q4-6H PRN (Reason: shortness of breath or wheezing) Qty: 1 6RF fluticasone propion-salmeterol [AirDuo RespiClick] 232-14 mcg/actuation aerosol powdr breath activated 1 inh inhalation BID Qty: 1 3RF Interventions: ED Discharge Assessment Last Done: 02/16/24 03:10 Discharge Date/Time: 02/16/24 03:11 Print Language: Belizean
[2024-02-16 02:58] VITALS: BP 127/106; PULSE 105; RESP 19; O2SAT 96
[2024-02-16 03:10] VITALS: BP 127/106; PULSE 105; RESP 19; TEMP 37; O2SAT 96
== END 2024-02-16 03:11 | disposition home or self-care (01) ==
PROVIDERS: Emergency Provider Internal Medicine; PCP Internal Medicine
DX: Z48.00 Encounter for change or removal of nonsurgical wound dressing (principal); L02.214 Cutaneous abscess of groin
CPT/HCPCS: 99282; 99284

== ENCOUNTER 2024-02-16 08:00 | Outpatient (REF) | payer BC, SELFPAY ==
--- NOTE | ~2024-02-16 | XR_ITS ---
EXAMINATION: XR PELVIS CLINICAL INFORMATION: Pain in unspecified hip. COMPARISON: December 19, 2023. TECHNIQUE: AP view of the pelvis. FINDINGS: There has been no significant radiographic change compared with December 19, 2023. The patient is status post right hip arthroplasty. No evidence of hardware fracture or loosening. Moderate osteoarthritis of the left hip, with joint space narrowing, sclerosis, and osteophyte formation. No acute fracture or dislocation identified. No lytic or sclerotic bony lesion appreciated. Soft tissues appear unremarkable. XR/XR pelvis 1-2V IMPRESSION: Findings as above.
== END 2024-02-16 08:01 | disposition home or self-care (01) ==
LOC: HO.HOSX 08:00
PROVIDERS: Visit Provider Orthopaedic Surgery
DX: M25.559 Pain in unspecified hip (principal)
CPT/HCPCS: 72170

== ENCOUNTER 2024-02-16 11:24 | Outpatient (AMB) | payer BC, SELFPAY ==
--- NOTE | 2024-02-16 11:58 | A.OFFVIS_ITS ---
Intake Visit Reasons: post op s/p RT VERITO 12/19/23 NE Intake Note: Jethro is a 43 year old male who presents today post operatively s/p Right VERITO 12/19/23 NE. Patient reports that he is doing well with no concerns at this time He reports that he was [place] [facility] [place] of [place] Allergies cashew nut [CASHEW NUT] Allergy (Severe, Verified 02/16/24 00:29) ANAPHYLAXIS HPI HPI post op s/p RT VERITO 12/19/23 NE: Details: Jethro is a 43 year old male who presents today post operatively s/p Right VERITO 12/19/23 NE. Patient reports that he is doing well with no concerns at this time He reports that he was [place] [facility] [place] draining of an abcess on the left inguinal region. He states that has cleared up but he is still taking abx PFS Medical History Sleep apnea Asthma Osteoarthritis Skin lesions Morbid obesity Hypertension Surgical History History of surgical removal of skin lesion Family History Father Diabetes Mother No problems noted. Social History Household Members: Other Household Members Other:: sister Housing: House Housing Other:: basement apartment with walk-out door Are you a primary childcare teacher to a significant other at home: No Do you presently have visiting nurse or other home services: No Alcohol intake: current Alcohol intake frequency: holidays/special occasions only Patient Tobacco Use Status: Former Tobacco user Tobacco use type: Cigarette Years Smoked: 25 e-Cigarette/Vaping Use: Never Used Second Hand Smoke Exposure: No service: No Current occupational status: employed Cognitive needs: No Hearing needs: No Vision needs: No Physical Exam Extrem Other: inc c/d/i very minimal Trendelenberg gati No pain with hip ROM. Results Reviewed Results Reviewed: I personally reviewed relevant radiographs. Right VERITO in expected post operative position with no hardware complications or evidence of loosening Assessment & Plan Assessment & Plan (1) History of total right hip replacement: Onset Date: ~12/19/23 Comment: Dr. Eric Kelley Code(s): Z96.641 - Presence of right artificial hip joint Category: Surgical Plan: 6 weeks post op december d/c anticoag cont abx for contralateral superficial abcess f/u 6 weeks PT for gait training Orders: Orders XR pelvis 1-2V 02/16/24 M25.559 - Pain in unspecified hip PT Evaluation and Treatment Today Z96.641 - Presence of right artificial hip joint Coding Level of Care Code Global (49316) Diagnoses History of total right hip replacement Z96.641
== END 2024-02-16 12:11 | disposition home or self-care (01) ==
PROVIDERS: PCP Internal Medicine; Visit Provider Orthopaedic Surgery
DX: Z96.641 Presence of right artificial hip joint (principal)
CPT/HCPCS: 99024

== ENCOUNTER 2024-02-26 10:54 | Outpatient (RCR) | payer BC, SELFPAY ==
--- NOTE | 2024-02-26 14:00 | MHC.PT.DC ---
[facility] [place] Office [place] Office [place] Office [address] [phone] F: [phone] F: [phone] F: [phone] F: [phone] Physical Therapy Discharge Report Diagnosis: R VERITO (12/19/2023) Date of Surgery: 12/19/2023 Date of Evaluation: 02/26/24 Date of Discharge: 02/26/24 Treatments to Date: 1 Cancellations to Date: 0 No Shows to Date: Discharge Status: Achieved Goals Improved Function Patient Elected to Stop Recommend MD Follow-up Discharge Summary: Pt presents to PT today following R VERITO on 12/19/23, assessment reveals minimal to no R hip impairments. PT displays hip ROM WFLs, though pt is slightly more limited on L (side w/o replacement). Pt additionally had 5/5 strength on R LE (aside from R hip ER). Pt displayed some mild ROM limitation in hip IR and flexion. L LE was slightly more weak testing glutes, though still at least 4/5. Pt displays no impairment in gait (Trendelenberg, antalgic, etc.). Pt reports being able to do all his ADLs (getting dressed, caring for mother, cooking, cleaning, etc.). 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 PT also discussed possibility of pt returning to PT for L hip pain if needed in the future. Pt was in agreement w/ PT discharge and had no further questions. Pt is going to have follow up w/ Dr. Kelley in 4 months. [ End ] Electronically signed by: Janie Domingo PT, DPT Please sign and return to therapist. Thank you for your referral.
--- NOTE | 2024-02-26 14:01 | MHC.PT.DC ---
[facility] [place] Office [place] Office [place] Office [address] [phone] F: [phone] F: [phone] F: [phone] F: [phone] Physical Therapy Discharge Report Diagnosis: R VERITO (12/19/2023) Date of Surgery: 12/19/2023 Date of Evaluation: 02/26/24 Date of Discharge: 02/26/24 Treatments to Date: 1 Cancellations to Date: 0 No Shows to Date: Discharge Status: Achieved Goals Improved Function Patient Elected to Stop Recommend MD Follow-up Discharge Summary: Pt presents to PT today following R VERITO on 12/19/23, assessment reveals minimal to no R hip impairments. PT displays hip ROM WFLs, though pt is slightly more limited on L (side w/o replacement). Pt additionally had 5/5 strength on R LE (aside from R hip ER). Pt displayed some mild ROM limitation in hip IR and flexion. L LE was slightly more weak testing glutes, though still at least 4/5. Pt displays no impairment in gait (Trendelenberg, antalgic, etc.). Pt reports being able to do all his ADLs (getting dressed, caring for mother, cooking, cleaning, etc.). 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 PT also discussed possibility of pt returning to PT for L hip pain if needed in the future. Pt was in agreement w/ PT discharge and had no further questions. Pt is going to have follow up w/ Dr. Kelley in 4 months. [ End ] Electronically signed by: Janie Domingo PT, DPT Please sign and return to therapist. Thank you for your referral.
== END 2024-02-26 13:59 | disposition home or self-care (01) ==
LOC: HO.PT 10:54
PROVIDERS: PCP Internal Medicine; Visit Provider Physician Assistant
DX: Z96.641 Presence of right artificial hip joint (principal)
CPT/HCPCS: 97161

== ENCOUNTER 2024-04-21 23:31 | Emergency (ER) | payer MEDICAID, SELFPAY ==
--- NOTE | ~2024-04-21 | XR_ITS ---
EXAMINATION: XR SHOULDER, RIGHT CLINICAL INFORMATION: Pain. COMPARISON: None available. TECHNIQUE: Three views of the right shoulder. FINDINGS: [id number] glenohumeral osteoarthritis with marginal osteophytes and joint space narrowing. More moderate to severe acromioclavicular gastroenteritis. No fracture or malalignment. Soft tissues are unremarkable. XR/XR shoulder RT min 2V IMPRESSION: [id number] glenohumeral and moderate to severe acromioclavicular osteoarthritis. Electronically signed by: Morgan Henderson MD 04/22/2024 12:41 AM EDT
[2024-04-21 23:39] VITALS: BP 121/81; PULSE 101; RESP 18; TEMP 36.7; O2SAT 98; BMI 40.7
[2024-04-22] MEDS: Ondansetron ODT 4 MG TAB.RAPDIS TRANSLINGU (00:27)
[2024-04-22] MEDS: Morphine Sulfate 4 MG/ML CARTRIDGE IM (00:27)
--- NOTE | 2024-04-22 00:37 | ED.EXTPRO ---
HPI - Extremity Problem General Chief complaint: Extremity Injury, Upper Stated complaint: shoulder inj Time Seen by Provider: 04/21/24 23:32 Source: patient, RN notes reviewed and old records reviewed Mode of arrival: ambulatory Limitations: no limitations History of Present Illness ED Provider: Sarath RIVERA Narrative: 43-year-old male with past medical history significant for hypertension, obesity, sleep apnea presents for evaluation of right shoulder pain. Patient reports that he has had pain in his entire right shoulder for the last week. His pain started after he was ?moving branches around. ? 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 Patient denies any specific time when he felt a sharp pain, he had no trauma to the right shoulder He states ?people tell me that it looks swollen. His pain is worse when trying to lift his right arm over his head No other complaints or concerns at this time. The patient has been using ibuprofen with no relief of the symptoms. He has tried lidocaine patches with no relief as well. Related Data Previous Rx's ?Medication ?Instructions ?Recorded albuterol sulfate 90 mcg/actuation 2 puff inhalation Q4-6H PRN 01/10/23 aerosol inhaler shortness of breath or wheezing #1 ea walker #1 ea 10/12/23 fluticasone 232 mcg-salmeterol 14 1 inh inhalation BID #1 ea 11/17/23 mcg/actuation breath activated powdr (AirDuo RespiClick) acetaminophen 325 mg tablet 650 mg (2 x 325 mg) PO Q6H PRN 12/19/23 Pain, Mild (Pain Scale 1-3) 30 days #240 tabs aspirin 325 mg tablet 325 mg PO BID 42 days #84 tabs 12/19/23 celecoxib 200 mg capsule 200 mg PO BID 30 days #60 caps 12/19/23 docusate sodium 100 mg capsule 100 mg PO BID 30 days #60 caps 12/19/23 oxycodone 5 mg tablet 5 mg PO Q4H PRN Pain, 12/19/23 Moderate(Pain Scale 4-6) 7 days #42 tabs cane #1 ea 12/27/23 cephalexin 500 mg capsule 500 mg PO QID 10 days #40 caps 02/14/24 cephalexin 500 mg tablet 500 mg PO Q6H 7 days #28 tabs 02/14/24 doxycycline hyclate 100 mg capsule 100 mg PO BID 7 days #14 caps 02/14/24 doxycycline hyclate 100 mg tablet 100 mg PO BID #20 tabs 02/14/24 ibuprofen 600 mg tablet 600 mg PO Q6H PRN fever or pain 02/14/24 #30 tabs ibuprofen 600 mg tablet 600 mg PO Q6H PRN fever or pain 02/14/24 #30 tabs hydrochlorothiazide 25 mg tablet 25 mg PO DAILY #90 tabs 04/11/24 lisinopril 40 mg tablet 40 mg PO DAILY #90 tabs 04/11/24 tramadol 50 mg tablet 50 mg PO Q6H PRN severe pain 04/22/24 (scale score 7-10) #20 tabs Allergies Allergy/AdvReac Type Severity Reaction Status Date / Time cashew nut [CASHEW NUT] Allergy Severe ANAPHYLAXIS Verified 04/21/24 23:40 Review of Systems Constitutional: Constitutional: Denies body ache(s) and Denies fever(s) Cardiovascular: Cardiovascular: Denies chest pain and Denies dyspnea Respiratory: Respiratory: Denies cough and Denies dyspnea Gastrointestinal: Gastrointestinal: Denies abdominal pain Musculoskeletal: Musculoskeletal: Denies back pain, Reports arthralgias, Reports joint swelling and Reports limited range of motion Integumentary/Breasts: Skin/Breast: Denies wounds PMFSH Past Medical History Medical History Sleep apnea Asthma Osteoarthritis Skin lesions Morbid obesity Hypertension Surgical History History of surgical removal of skin lesion Family History Family History Father Diabetes Mother No problems noted. Social History Social History Household Members: Other Household Members Other:: sister Housing: House Housing Other:: basement apartment with walk-out door Are you a primary career center advisor to a significant other at home: No Do you presently have visiting nurse or other home services: No Alcohol intake: current Alcohol intake frequency: holidays/special occasions only Patient Tobacco Use Status: Former Tobacco user Tobacco use type: Cigarette Years Smoked: 25 e-Cigarette/Vaping Use: Never Used Second Hand Smoke Exposure: No Advance Directives: No Advance Directives Information Provided: Yes Do you have a plan to hurt others: No Plan service: No Current occupational status: employed Cognitive needs: No Hearing needs: No Vision needs: No Physical Exam Vital Signs: Vital Signs: Last Vital Signs Temp 98.1 F 04/21/24 23:39 Pulse 101 H 04/21/24 23:39 Resp 18 04/21/24 23:39 BP 121/81 04/21/24 23:39 Pulse Ox 98 04/21/24 23:39 O2 Del Method Room Air 04/21/24 23:39 BMI result Body Mass Index 40.7 Const: General: healthy appearing, no acute distress, alert and awake Nutritional Appearance: well nourished Orientation/consciousness: patient oriented x3 HEENT: Head: Yes normocephalic and Yes atraumatic Eyes: Eyelids: Yes eyelids normal Conjunctivae: conjunctivae normal Sclerae: sclerae normal Corneas: corneas normal Pupils: Equal, round and reactive pupils present EOM: EOMs intact bilaterally Neck: Neck: Yes full ROM Resp: Effort & Inspection: normal respiratory effort, able to speak in complete sentences and not labored GI: Inspection: No distended Palpation (GI): Soft to palpation, not firm, nontender, no guarding and not rigid Skin: General skin exam: elasticity normal Neuro: General: patient oriented x3 Cranial nerves: Yes Equal, round and reactive pupils present and Yes Bilaterally intact EOM present Cognition (Neuro): normal cognition Extrem: Other: Patient has no visible deformity to the right upper extremity including the right side of the neck, clavicle, right shoulder,. He is tender palpation almost globally to the right shoulder but primarily the anterior aspect and AC joint. There are no palpable deformities. No tenderness with manipulation of the right elbow. 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 The right hand is warm, dry well perfused Medications Administered Discontinued Medications Generic Name Dose Route Start Last Admin Trade Name Freq PRN Reason Stop Dose Admin Morphine Sulfate 4 mg 04/22/24 00:20 04/22/24 00:27 Morphine Sulfate 4 Mg/Ml Cartridge IM 04/22/24 00:21 4 mg ONCE ONE Administration Protocol Ondansetron HCl 4 mg 04/22/24 00:20 04/22/24 00:27 Ondansetron Odt 4 Mg Tab.Malachi MASTERS 04/22/24 00:21 4 mg ONCE ONE Administration Medical Decision Making Medical Decision Making [facility] Narrative: 43-year-old male presents for evaluation of right shoulder pain after he was moving tree branches a week ago. He has tried [id number] remedies with no improvement, plan for morphine 4 mg IM injection for analgesia. An x-ray of the right shoulder was obtained. The patient has no chest pain, no dyspnea on exertion, no pain in his aspiration or pleuritic pain to suggest a cause has not musculoskeletal. Differential Diagnosis Differential Diagnoses: The differential diagnosis associated with the presentation includes Right shoulder pain Rotator cuff injury Shoulder strain Arthritis Calcific tendinitis Independent Interpretation I performed an independent interpretation of an: Plain X-Ray Interpretation: No obvious fracture or dislocation of the right shoulder Radiology Impression Discussion of test interpretation with radiology: I have reviewed the radiologist's reading. Radiologist Impression: XR/XR shoulder RT min 2V IMPRESSION: [id number] glenohumeral and moderate to severe acromioclavicular osteoarthritis. Discharge Plan Discharge Clinical Impression: Acute pain of right shoulder Patient Disposition: Home, Self-Care Instructions: Shoulder Pain (ED) Additional Instructions: Your x-ray showed moderate to severe arthritis of your acromioclavicular joint. There were no subluxation or fractures You may continue to use ibuprofen/Tylenol for pain. You may use tramadol for more severe breakthrough pain This may make you drowsy, do not drink alcohol or drive after taking it You may follow-up with Dr. Kelley, your orthopedic doctor. Call tomorrow to schedule an appointment Prescriptions: New tramadol 50 mg tablet 50 mg PO Q6H PRN (Reason: severe pain (scale score 7-10)) Qty: 20 0RF No Action (DME) walker Misc See Rx Instructions .MEDSUPPLY Qty: 1 0RF Rx Instructions: Folding Front wheeled walker (DME) cane Device See Rx Instructions .MEDSUPPLY Qty: 1 0RF Rx Instructions: single-point cane lisinopril 40 mg tablet 40 mg PO DAILY Qty: 90 3RF hydrochlorothiazide 25 mg tablet 25 mg PO DAILY Qty: 90 3RF cephalexin 500 mg capsule 500 mg PO QID 10 Days Qty: 40 0RF ibuprofen 600 mg tablet 600 mg PO Q6H PRN (Reason: fever or pain) Qty: 30 0RF doxycycline hyclate 100 mg tablet 100 mg PO BID Qty: 20 0RF acetaminophen 325 mg Tablet 650 mg PO Q6H PRN (Reason: Pain, Mild (Pain Scale 1-3)) 30 Days Qty: 240 0RF aspirin 325 mg Tablet 325 mg PO BID 42 Days Qty: 84 0RF celecoxib 200 mg Capsule 200 mg PO BID 30 Days Qty: 60 0RF docusate sodium 100 mg Capsule 100 mg PO BID 30 Days Qty: 60 0RF oxycodone 5 mg Tablet 5 mg PO Q4H PRN (Reason: Pain, Moderate(Pain Scale 4-6)) 7 Days Qty: 42 0RF Rx Instructions: Partial Fill upon patient request. doxycycline hyclate 100 mg capsule 100 mg PO BID 7 Days Qty: 14 0RF cephalexin 500 mg tablet 500 mg PO Q6H 7 Days Qty: 28 0RF ibuprofen 600 mg tablet 600 mg PO Q6H PRN (Reason: fever or pain) Qty: 30 0RF albuterol sulfate 90 mcg/actuation HFA aerosol inhaler 2 puff inhalation Q4-6H PRN (Reason: shortness of breath or wheezing) Qty: 1 6RF fluticasone propion-salmeterol [AirDuo RespiClick] 232-14 mcg/actuation aerosol powdr breath activated 1 inh inhalation BID Qty: 1 3RF Referrals: Eric Kelley MD [Physician] - (Severe shoulder arthritis) Print Language: Iranian
[2024-04-22 00:49] VITALS: BP 104/75; PULSE 93; RESP 16; TEMP 36.6; O2SAT 96
[2024-04-22 01:03] VITALS: BP 104/75; PULSE 93; RESP 16; TEMP 36.6; O2SAT 96
== END 2024-04-22 01:03 | disposition home or self-care (01) ==
PROVIDERS: Emergency Provider Emergency Medicine
DX: M25.511 Pain in right shoulder (principal); M79.601 Pain in right arm; Z79.899 Other long term (current) drug therapy
CPT/HCPCS: 73030; 96372; 99284; J2270

== ENCOUNTER 2024-05-13 09:55 | Outpatient (AMB) | payer MEDICAID, SELFPAY ==
[2024-05-13 10:00] VITALS: BMI 40.6
--- NOTE | 2024-05-13 10:00 | A.OFFVIS_ITS ---
Vital Signs 05/13/24 10:00 Height 6 ft 2 in Weight 316 lb BMI 40.6 Intake Visit Reasons: New prob- Right shoulder pain Intake Note: Jethro is a 43 year old right hand dominant male who presents today for a new problem visit with complaints of right shoulder pain that began about a month ago. 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 He is also having difficulty lifting his arm above his head and behind his back. Patient denies prior surgeries or injuries to the right arm and/or shoulder. Patient is taking ibuprofen PRN with minimal relief. Patient has a known history of RT VERITO 12/19/23. Allergies cashew nut [CASHEW NUT] Allergy (Severe, Verified 05/13/24 10:03) ANAPHYLAXIS HPI HPI New prob- Right shoulder pain: Details: Jethro is a 43 year old right hand dominant male who presents today for a new problem visit with complaints of right shoulder pain that began about a month ago. 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 He is also having difficulty lifting his arm above his head and behind his back. Patient denies prior surgeries or injuries to the right arm and/or shoulder. Patient is taking ibuprofen PRN with minimal relief. Patient has a known history of RT VERITO 12/19/23. [facility] Medical History Sleep apnea Asthma Osteoarthritis Skin lesions Morbid obesity Hypertension Surgical History History of surgical removal of skin lesion Family History Father Diabetes Mother No problems noted. Social History (Updated 05/13/24 @ 10:07 by CATERINA Lam) Household Members: Other Household Members Other:: sister Housing: House Housing Other:: basement apartment with walk-out door Are you a primary home health care physician to a significant other at home: No Do you presently have visiting nurse or other home services: No Alcohol intake: current Alcohol intake frequency: holidays/special occasions only Patient Tobacco Use Status: Former Tobacco user Tobacco use type: Cigarette Years Smoked: 25 e-Cigarette/Vaping Use: Never Used Second Hand Smoke Exposure: No service: No Current occupational status: employed Current occupation: rt handed Cognitive needs: No Hearing needs: No Vision needs: No Physical Exam Vital Signs: BMI result Body Mass Index 40.6 Extrem Other: 4+/5 empty can Positive García and Neer 35 degrees ER Under 20 degrees forward flexion Abduction 90 with scapular splinting Office Procedures Joint Injection/Aspiration Joint Injection/Aspiration Details: Injected 1 mL of Decadron and 3 mL 1% lidocaine and 3 mL of 0.25% Marcaine. Site was prepped using aseptic technique. Patient tolerated the procedure well. Primary Site: right shoulder Approach Used: posterolateral Coding - Large joint Procedure code (CPT) selection complete Assessment & Plan Assessment & Plan (1) Painful arc syndrome of right shoulder: Code(s): M75.101 - Unspecified rotator cuff tear or rupture of right shoulder, not specified as traumatic Category: Medical Plan: This is a 43-year-old gentleman with painful arc syndrome of the right shoulder. I injected his right shoulder and recommend physical therapy. Orders: Orders PT Evaluation and Treatment Today M75.101 - Unspecified rotator cuff tear or rupture of right shoulder, not specified as traumatic Coding Level of Care Code Est Pt Level 3 (81240) Diagnoses Painful arc syndrome of right shoulder M75.101 CPT Codes Coding - 22809 Large joint: 47223 - Large joint ([id number])
== END 2024-05-13 10:43 | disposition home or self-care (01) ==
PROVIDERS: Visit Provider Orthopaedic Surgery
DX: M75.101 Unspecified rotator cuff tear or rupture of right shoulder, not specified as traumatic (principal)
CPT/HCPCS: 20610; 99213

== ENCOUNTER → 2024-05-13 09:55 | Outpatient (BNVA) | payer MEDICAID, SELFPAY | PROVIDERS: Visit Provider Orthopaedic Surgery | DX: M75.101 Unspecified rotator cuff tear or rupture of right shoulder, not specified as traumatic (principal) | CPT/HCPCS: 20610; 99212; J0665; J1100 ==

== ENCOUNTER 2024-06-04 01:46 | Emergency (ER) | payer MEDICAID, SELFPAY ==
--- NOTE | 2024-06-04 | ECG_ITS ---
Test Reason : arm pain/ numbness Blood Pressure : / mmHG Vent. Rate : 101 BPM Atrial Rate : 101 BPM P-R Int : 150 ms QRS Dur : 090 ms QT Int : 342 ms P-R-T Axes : 052 034 041 degrees QTc Int : 443 ms Sinus tachycardia Otherwise normal ECG When compared with ECG of 11-DEC-2023 12:39, No significant change was found Referred By: Generic ED Physician Electronically Signed By:Howard Garcia
[2024-06-04 01:51] VITALS: BP 141/75; PULSE 104; RESP 26; TEMP 36.4; O2SAT 98; BMI 42.4
[2024-06-04 02:07] LABS: MANUAL DIFF FLAG NO
[2024-06-04 02:09] LABS: Basophils Absolute Auto 0.2 X10*3/uL (0.0-0.2); Basophils Percent Auto 2.3 % (0-2); Eosinophils Absolute Auto 0.5 X10*3/uL (0.0-0.4); Eosinophils Percent Auto 6.6 % (0-4); Hematocrit 37.5 % (42.0-52.0); Hemoglobin 12.6 g/dl (14.0-18.0); Imm Gran Abs Auto 0.04 X10*3/uL (0.00-0.03); Imm Gran Pct Auto 0.6 % (0.0-0.4); Lymphocytes Absolute Auto 2.1 X10*3/uL (1.2-4.9); Lymphocytes Percent Auto 30.9 % (20-40); Mean Corpuscular HGB Conc 33.6 g/dl (31.0-36.0); Mean Corpuscular Hemoglobin 29.4 pg (27.0-33.0); Mean Corpuscular Volume 87.6 fL (80.0-98.0); Mean Platelet Volume 9.7 fL (9.4-12.4); Monocytes Absolute Auto 0.7 X10*3/uL (0.1-1.2); Monocytes Percent Auto 10.6 % (2-11); Neutrophils Absolute Auto 3.4 x10*3/uL (2.0-8.3); Platelet Count 275 X10*3/uL (160-400); Red Blood Count 4.28 X10*6/uL (4.60-5.80); Red Cell Distribution Width 13.2 % (11.0-16.0); White Blood Count 6.9 X10*3/uL (4.8-10.8)
[2024-06-04 02:14] VITALS: BP 124/81; PULSE 91; RESP 20
[2024-06-04 02:25] LABS: Alanine Aminotransferase 17 U/L (0-40); Alkaline Phosphatase 87 U/L (39-117); Anion Gap 14 (12-20); Aspartate Amino Transferase 30 U/L (5-37); Bilirubin Total 0.3 mg/dL (0.0-1.0); Blood Urea Nitrogen 35 mg/dL (9-16); Calcium 9.2 mg/dL (8.4-10.2); Carbon Dioxide 21 mmol/L (22-29); Chloride 106 mmol/L (96-108); Creatinine Clr Calc Pharmacy 106.6; Estimated Glomerular Filt Rate 56; Glucose Random 115 mg/dL (60-115); Potassium 4.2 mmol/L (3.3-5.1); Sodium 137 mmol/L (135-145); Total Protein 7.2 g/dL (6.5-8.0)
--- NOTE | 2024-06-04 02:30 | ED.GENADULT ---
HPI - General Adult General Chief complaint: General Medical Stated complaint: numb/pain arms Time Seen by Provider: 06/04/24 02:28 Source: patient Mode of arrival: ambulatory Limitations: no limitations History of Present Illness ED Provider: norma RIVERA narrative: Patient with right painful ox syndrome status post steroid injection last month comes here with both shoulder which is going on while very tingling in the both no neck pain no headache patient does have history of sleep apnea not using his CPAP machine no recent fall Related Data Previous Rx's ?Medication ?Instructions ?Recorded albuterol sulfate 90 mcg/actuation 2 puff inhalation Q4-6H PRN 01/10/23 aerosol inhaler shortness of breath or wheezing #1 ea walker #1 ea 10/12/23 fluticasone 232 mcg-salmeterol 14 1 inh inhalation BID #1 ea 11/17/23 mcg/actuation breath activated powdr (AirDuo RespiClick) acetaminophen 325 mg tablet 650 mg (2 x 325 mg) PO Q6H PRN 12/19/23 Pain, Mild (Pain Scale 1-3) 30 days #240 tabs aspirin 325 mg tablet 325 mg PO BID 42 days #84 tabs 12/19/23 celecoxib 200 mg capsule 200 mg PO BID 30 days #60 caps 12/19/23 docusate sodium 100 mg capsule 100 mg PO BID 30 days #60 caps 12/19/23 cane #1 ea 12/27/23 ibuprofen 600 mg tablet 600 mg PO Q6H PRN fever or pain 02/14/24 #30 tabs hydrochlorothiazide 25 mg tablet 25 mg PO DAILY #90 tabs 04/11/24 lisinopril 40 mg tablet 40 mg PO DAILY #90 tabs 04/11/24 tramadol 50 mg tablet 50 mg PO Q6H PRN severe pain 04/22/24 (scale score 7-10) #20 tabs prednisone 20 mg tablet 40 mg (2 x 20 mg) PO DAILY #10 tabs 06/04/24 Allergies Allergy/AdvReac Type Severity Reaction Status Date / Time cashew nut [CASHEW NUT] Allergy Severe ANAPHYLAXIS Verified 06/04/24 01:55 Review of Systems Review of Systems: Yes all other systems are reviewed and are negative PMFSH Past Medical History Medical History Sleep apnea Asthma Osteoarthritis Skin lesions Morbid obesity Hypertension Surgical History History of surgical removal of skin lesion Family History Family History Father Diabetes Mother No problems noted. Social History Social History Household Members: Other Household Members Other:: sister Housing: House Housing Other:: basement apartment with walk-out door Are you a primary manager long term care to a significant other at home: No Do you presently have visiting nurse or other home services: No Alcohol intake: current Alcohol intake frequency: does not drink Patient Tobacco Use Status: Former Tobacco user Tobacco use type: Cigarette Years Smoked: 25 e-Cigarette/Vaping Use: Never Used Second Hand Smoke Exposure: No Use of substances other than those prescribed or required for medical reasons: No Advance Directives: No Advance Directives Information Provided: No Do you have a plan to hurt others: No Plan service: No Current occupational status: employed Current occupation: rt handed Cognitive needs: No Hearing needs: No Vision needs: No Physical Exam ED Vital Signs: Vital Signs - 24 hr 06/04/24 01:51 06/04/24 02:14 06/04/24 03:45 Temperature 97.6 F 0 F L Pulse Rate 104 H 91 0 L Respiratory Rate 26 H 20 0 L Blood Pressure 141/75 H 124/81 00/00 L Pulse Oximetry 98 0 L Oxygen Delivery Method Room Air BMI result Body Mass Index 42.4 Appearance: Alert. Oriented X3. No acute distress. Eyes: PERRLA, ENT: Pharynx normal. Oral Mucosa moist Neck: Normal inspection. Neck supple. No midline tenderness CVS: Normal heart rate and rhythm. Pulses normal. Respiratory: No respiratory distress. Equal air entry bilateral, no wheezing/rales/rhonchi Abdomen: Soft and nontender. Bowel sounds are present, no mass palpable, no CVA tenderness Skin: Skin warm and dry. Normal skin color. Normal skin turgor. Extremities: No lower extremity edema. No calf tenderness right shoulder painful for abduction above 90 degrees open can sign positive left shoulder good range of movement tenderness on extreme abduction neurovascular intact Tinel sign negative Neuro: Oriented X 3. No motor deficit. No sensory deficit.No cerebellar signs , cranial nerves II-XII intact Medications Administered Discontinued Medications Generic Name Dose Route Start Last Admin Trade Name Chris PRN Reason Stop Dose Admin Ketorolac Tromethamine 60 mg 06/04/24 03:02 06/04/24 03:10 Ketorolac Tromethamine 60 Mg/2 Ml Vial IM 06/04/24 03:03 60 mg ONCE ONE Administration Prednisone 60 mg 06/04/24 03:02 06/04/24 03:10 Prednisone 20 Mg Tablet PO 06/04/24 03:03 60 mg ONCE ONE Administration Medical Decision Making Lab Data [facility] Lab Attestation statement: I reviewed the patient's lab results. 06/04/24 02:04 06/04/24 02:04 Labs: Lab Results 06/04/24 Range/Units 02:04 WBC 6.9 (4.8-10.8) X10*3/uL RBC 4.28 L (4.60-5.80) X10*6/uL Hgb 12.6 L (14.0-18.0) g/dl Hct 37.5 L (42.0-52.0) % MCV 87.6 (80.0-98.0) fL MCH 29.4 (27.0-33.0) pg MCHC 33.6 (31.0-36.0) g/dl RDW 13.2 (11.0-16.0) % Plt Count 275 (160-400) X10*3/uL MPV 9.7 (9.4-12.4) fL Immature Gran % (Auto) 0.6 H (0.0-0.4) % Neut % (Auto) 49.0 (45-73) % Lymph % (Auto) 30.9 (20-40) % [place] % (Auto) 10.6 (2-11) % Eos % (Auto) 6.6 H (0-4) % Baso % (Auto) 2.3 H (0-2) % Lymph # (Auto) 2.1 (1.2-4.9) X10*3/uL [place] # (Auto) 0.7 (0.1-1.2) X10*3/uL Eos # (Auto) 0.5 H (0.0-0.4) X10*3/uL Baso # (Auto) 0.2 (0.0-0.2) X10*3/uL Abs Immat Gran (auto) 0.04 H (0.00-0.03) X10*3/uL Absolute Neuts (auto) 3.4 (2.0-8.3) x10*3/uL Absolute Nucleated RBC 0.000 (0.0-0.012) X10*3/uL Nucleated RBC % (auto) 0.0 (0.0-0.2) /100WBC Sodium 137 (135-145) mmol/L Potassium 4.2 (3.3-5.1) mmol/L Chloride 106 (96-108) mmol/L Carbon Dioxide 21 L (22-29) mmol/L Anion Gap 14 (12-20) BUN 35 H (9-16) mg/dL Creatinine 1.38 (0.5-1.4) mg/dL Estim Creat Clear Calc 106.6 Estimated GFR 56 Random Glucose 115 (60-115) mg/dL Calcium 9.2 (8.4-10.2) mg/dL Total Bilirubin 0.3 (0.0-1.0) mg/dL AST 30 (5-37) U/L ALT 17 (0-40) U/L Alkaline Phosphatase 87 (39-117) U/L Total Protein 7.2 (6.5-8.0) g/dL Albumin 4.0 (3.5-5.0) g/dL Discharge Plan Discharge Clinical Impression: Tendonitis of both rotator cuffs Patient Disposition: Home, Self-Care Instructions: Rotator Cuff Tendinitis (ED) Additional Instructions: Take pain medication and prednisone as prescribed Follow up with Orthopedics for further management Use your CPAP machine daily Prescriptions: New prednisone 20 mg tablet 40 mg PO DAILY Qty: 10 0RF No Action (DME) walker Misc See Rx Instructions .MEDSUPPLY Qty: 1 0RF Rx Instructions: Folding Front wheeled walker (DME) cane Device See Rx Instructions .MEDSUPPLY Qty: 1 0RF Rx Instructions: single-point cane lisinopril 40 mg tablet 40 mg PO DAILY Qty: 90 3RF hydrochlorothiazide 25 mg tablet 25 mg PO DAILY Qty: 90 3RF tramadol 50 mg tablet 50 mg PO Q6H PRN (Reason: severe pain (scale score 7-10)) Qty: 20 0RF acetaminophen 325 mg Tablet 650 mg PO Q6H PRN (Reason: Pain, Mild (Pain Scale 1-3)) 30 Days Qty: 240 0RF aspirin 325 mg Tablet 325 mg PO BID 42 Days Qty: 84 0RF celecoxib 200 mg Capsule 200 mg PO BID 30 Days Qty: 60 0RF docusate sodium 100 mg Capsule 100 mg PO BID 30 Days Qty: 60 0RF ibuprofen 600 mg tablet 600 mg PO Q6H PRN (Reason: fever or pain) Qty: 30 0RF albuterol sulfate 90 mcg/actuation HFA aerosol inhaler 2 puff inhalation Q4-6H PRN (Reason: shortness of breath or wheezing) Qty: 1 6RF fluticasone propion-salmeterol [AirDuo RespiClick] 232-14 mcg/actuation aerosol powdr breath activated 1 inh inhalation BID Qty: 1 3RF Interventions: ED Discharge Assessment Last Done: 06/04/24 03:45 Discharge Date/Time: 06/04/24 03:46 Print Language: Welsh
[2024-06-04] MEDS: Ketorolac Tromethamine 60 MG/2 ML VIAL IM (03:10)
[2024-06-04] MEDS: predniSONE 20 MG TABLET 60 MG PO (03:10)
[2024-06-04 03:45] VITALS: BP 00/00; PULSE 0; RESP 0; TEMP -17.7; TEMP 0; O2SAT 0
== END 2024-06-04 03:46 | disposition home or self-care (01) ==
PROVIDERS: Emergency Provider Internal Medicine; PCP Internal Medicine
DX: M75.32 Calcific tendinitis of left shoulder (principal); M75.31 Calcific tendinitis of right shoulder; R20.0 Anesthesia of skin; R00.0 Tachycardia, unspecified; Z87.891 Personal history of nicotine dependence; Z79.899 Other long term (current) drug therapy
CPT/HCPCS: 36415; 80053; 85025; 93005; 96372; 99284; 99285; J1885

== ENCOUNTER → 2024-06-04 01:53 | Outpatient (BNV) | payer MEDICAID, SELFPAY | PROVIDERS: Emergency Provider Internal Medicine; PCP Internal Medicine; Visit Provider Internal Medicine Cardiovascular Disease | DX: R00.0 Tachycardia, unspecified (principal) | CPT/HCPCS: 93010 ==

== ENCOUNTER 2024-07-03 11:00 | Outpatient (AMB) | payer OTHER, SELFPAY ==
--- NOTE | 2024-07-03 11:01 | A.OFFPC_ITS ---
Intake Visit Reasons: Numbness in both hands Intake Note: Telehealth c/o numbness on left side arm, elbow, hand Ui Lead Developer Required: No Accompanied by: Self / Same As Patient Allergies cashew nut [CASHEW NUT] Allergy (Severe, Verified 07/03/24 11:03) ANAPHYLAXIS Medication List - Last Reconciled 07/04/24 by Juan Otto MD acetaminophen 650 mg (2 x 325 mg) PO Q6H PRN 30 days albuterol sulfate 90 mcg/actuation 2 puffs inhalation Q4-6H PRN aspirin 325 mg PO BID 42 days cane single-point cane celecoxib 200 mg PO BID 30 days docusate sodium 100 mg PO BID 30 days fluticasone propion-salmeterol 232-14 mcg/actuation (AirDuo RespiClick) 1 inh inhalation BID hydrochlorothiazide 25 mg PO DAILY ibuprofen 600 mg PO Q6H PRN lisinopril 40 mg PO DAILY tramadol 50 mg PO Q6H PRN walker Folding Front wheeled walker Tobacco use date assessed: 09/13/23 Dental Screening Dental Screen Date: 07/03/24 Did you have a dental visit in the last 12 months?: No Did you have a dental problem in the last 6 months where you did not have access to dental care?: No Was dental information given to patient?: Patient has dentist HPI Numbness in both hands HPI Details on-going pain in right shoulder; has seen ortho and would like to see them again [facility] Medical History Sleep apnea Asthma Osteoarthritis Skin lesions Morbid obesity Hypertension Surgical History History of surgical removal of skin lesion Family History Father Diabetes Mother No problems noted. Social History Household Members: Other Household Members Other:: sister Housing: House Housing Other:: basement apartment with walk-out door Are you a primary primary care nurse practitioner to a significant other at home: No Do you presently have visiting nurse or other home services: No Alcohol intake: current Alcohol intake frequency: does not drink Patient Tobacco Use Status: Former Tobacco user Tobacco use type: Cigarette Years Smoked: 25 e-Cigarette/Vaping Use: Never Used Second Hand Smoke Exposure: No service: No Current occupational status: employed Current occupation: rt handed Cognitive needs: No Hearing needs: No Vision needs: No Questionnaire Thrive Questionnaire Date Thrive assessed: 09/13/23 NOREEN-7 AMB Questionnaire NOREEN-7 Date NOREEN - 7 assessed: 09/13/23 Source: Developed by Drs. Ben Aldrich, Dianna Thomas, Mansoor Nevarez and colleagues, with an educational isabelle from [email or web address]. Review of Systems Const Denies chills, Denies headache(s) and Denies weight loss ENT Denies headache(s) Card Denies chest pain, Denies syncope, Denies irregular heart rhythm and Denies dyspnea Resp Denies chest congestion, Denies cough and Denies dyspnea GI Denies abdominal pain, Denies change in stool character, Denies nausea and Denies vomiting Musc Denies deformity and Denies joint swelling Neuro Denies syncope and Denies headache(s) Physical exam (Primary Care) Tobacco/Smoking Status: Tobacco use Status Tobacco use date assessed 09/13/23 07/03/24 11:04 Patient Tobacco Use Status Former Tobacco user 07/03/24 11:04 Tobacco use type Cigarette 07/03/24 11:04 e-Cigarette/Vaping Use Never Used 07/03/24 11:04 Thrive Assessment: Date of Thrive Assessment Date Thrive assessed 09/13/23 07/03/24 11:04 Telehealth Telehealth Telehealth Platform: Telephone Location of provider rendering services: practice address Location of patient: address on file Patient Identification confirmed using: Name, : Yes Telehealth method: voice only Patient verbally consented to treatment: Yes Patient verbally consented to billing insurance company: Yes Patient informed of any privacy concerns related to visit: Yes Minutes spent on Phone/Video with Pt.: 15 (telephone) Coding Level of Care Code Tele Est Pt Level 3 (20024) Diagnoses Painful arc syndrome of right shoulder M75.101 Assessment & Plan Assessment & Plan (1) Painful arc syndrome of right shoulder: Code(s): M75.101 - Unspecified rotator cuff tear or rupture of right shoulder, not specified as traumatic Category: Medical Plan: rwferred to ortho Orders: Referrals Orthopedics Referral M75.101 - Unspecified rotator cuff tear or rupture of right shoulder, not specified as traumatic
== END 2024-07-03 12:25 | disposition home or self-care (01) ==
LOC: HO.HMCH 11:00
PROVIDERS: PCP Internal Medicine; Visit Provider Internal Medicine
DX: M75.101 Unspecified rotator cuff tear or rupture of right shoulder, not specified as traumatic (principal)

== ENCOUNTER 2024-07-22 18:33 | Outpatient (REF) | payer OTHER, SELFPAY ==
--- OUTSIDE RECORDS SUMMARY | 2024-07-24 18:09 | XMS_ITS | Patient Health Record ---
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 Name Role Phone Salomon Batista Unavailable [phone] Reason For Referral No Information Medications Medication SIG (Take, Route, Frequency, Duration) Notes Start Date End Date Status hydroCHLOROthiazide 25 mg 1 tab(s) orall y once a day for 30 day(s) 04/20/2018 Active lisinopril 40 mg 1 tab(s) orally once a day for 30 day(s) 02/17/2017 Active Immunizations Vaccine Route Administration Date Status Comme nts Tdap IM Intramuscular 08/15/2017 Administered Influenza IM Intramuscular 09/21/2018 Administered ND 49 [id number] Social History Tobacco Use: Social History Observation Description Date Details (start date - stop date) Current Smoker NA - NA Tobacco Use Assessment MU Question Answer Notes What is your current smoking status? current smoker How often do you smoke? some days, but not every day How many cigarettes a day do you smoke? 6-10 How soon after you wake up d o you smoke your first cigarette? after 60 minutes Are you interested in quitting? thinking about quitting feels can do on own, neds to change habits of smoking while driving Patient counseled on the dangers of tobacco use and advised to quit: 09/21/2018 Problems Problem Type SNOMED Code ICD Code Onset Dates Problem Status W/U Status Risk Notes Problem Obesity (775792598) Obesity, unspecified (E66.9) Active confirmed Problem Tobacco user (704490848) Nicotine dependence, cigarettes, uncomplicated (F17.210) Active confirmed Problem Obstructive sleep apnea syndrome (78014030) Obstructive sleep apnea (adult) (pediatric) (G47.33) Active confirmed Problem Essential hypertension (02735229) Essential (primary) hypertension (I10) Active confirmed Plan Of Treatment Pending Test Test Name Order Date HIV 1/2 ANTIGEN/ANTIBODY,FOURTH GENERATI ON W/RFL 04/18/2018 LIPID PANEL 04/18/2018 LIPID PANEL 12/26/2017 COMPREHENSIVE METABOLIC PANEL-[facility] 12/12 CBC (H/H, RBC, INDICES, WBC, PLT) 2017 HEMOGLOBIN A1c 12/26/2017 HEMOGLOBIN A1c 04/18/2018 HEPATITIS B CORE AB TOTAL 04/18/2018 HEPATITIS B SURFACE ANTIGEN W/REFL CONFI RM 04/18/2018 HEPATITIS C AB W/REFL TO HCV RNA, QN, PC R 04/18/2018 TSH W/REFLEX TO FT4 12/26/2017 HEPATITIS A AB, TOTAL W/REFL IGM 018 CHLAMYDIA/N. GONORRHOEAE RNA, TMA 2017 SYPHILIS ANTIBODY CASCADING REFLEX 04/18 HEPATITIS B SURFACE AB IMMUNITY, QN 12/2017 Insurance Providers Payer Name Payer Address Payer Phone Subscriber Number Group Number Insured Name Patient Relationship to Insured Coverage Start Date Coverage End Date Insurance Pending [facility] [place] [address] Jethro Rinaldi Self - patient is the insured Medical (General) History Medical History History ICD Code hypertension stomach problems Sleep Apnea Surgical History Surgery Date(Month/Year) Left tendon repair 1995 Hospitalization History Reason Date(Month/Year) [place] x1 week stomach issues 1994 [place] x1 week stomach issues 1994
== END 2024-07-22 18:34 | disposition home or self-care (01) ==
LOC: HO.MRI 18:33
PROVIDERS: PCP Internal Medicine; Visit Provider Orthopaedic Surgery
DX: M75.101 Unspecified rotator cuff tear or rupture of right shoulder, not specified as traumatic (principal)
CPT/HCPCS: 73221

== ENCOUNTER 2024-07-29 10:42 | Outpatient (AMB) | payer OTHER, SELFPAY ==
--- NOTE | 2024-07-29 10:45 | MHC.OFFVIS ---
Intake Visit Reasons: OV- Right shoulder pain Intake Note: Jethro is a 43 year old right hand dominant male who presents today for a follow up of his right shoulder painful arc syndrome. Last injected on 05/13/24 and given order for physical therapy. Patient reports that this injection was not helpful. Patient reports that he has pain in the elbow to forearms. He has numbness and tingling in bilateral hands causing his to drop stuff. He would like to have a nerve conduction study. Allergies cashew nut [CASHEW NUT] Allergy (Severe, Verified 07/29/24 10:58) ANAPHYLAXIS HPI HPI OV- Right shoulder pain: Details: Will comes in after having received an injection in his right shoulder with no benefit. His physical therapy was not covered by his insurance and he went to a chiropractor who suggested he have an MRI of his cervical spine. He comes in today complaining of worsening numbness and tingling in bilateral hands. This extends from his mid arm down to his hands and he can not lift or grasp objects. 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 He is not sleeping. He is extremely uncomfortable. [facility] Medical History Sleep apnea Asthma Osteoarthritis Skin lesions Morbid obesity Hypertension Surgical History History of surgical removal of skin lesion Family History Father Diabetes Mother No problems noted. Social History Household Members: Other Household Members Other:: sister Housing: House Housing Other:: basement apartment with walk-out door Are you a primary care trainer to a significant other at home: No Do you presently have visiting nurse or other home services: No Alcohol intake: current Alcohol intake frequency: does not drink Patient Tobacco Use Status: Former Tobacco user Tobacco use type: Cigarette Years Smoked: 25 e-Cigarette/Vaping Use: Never Used Second Hand Smoke Exposure: No service: No Current occupational status: employed Current occupation: rt handed Cognitive needs: No Hearing needs: No Vision needs: No Physical Exam Extrem Other: Subjectively diminished sensation bilateral hands. He can flex and extend his elbow but is weak on the right. Assessment & Plan Assessment & Plan (1) Myelopathy concurrent with and due to spinal stenosis of cervical region: Code(s): M48.02 - Spinal stenosis, cervical region; G99.2 - Myelopathy in diseases classified elsewhere Category: Medical Plan: Worsening numbness tingling and inability to grasp objects over the past several weeks. He does have shoulder pain but I am more concerned about his cervical spine at this point. 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 I recommend an MRI to assess his cervical spine. Orders: Orders MR cervical spine wo con Today G99.2 - Myelopathy in diseases classified elsewhere, M48.02 - Spinal stenosis, cervical region Coding Level of Care Code Est Pt Level 4 (48349) Diagnoses Myelopathy concurrent with and due to spinal stenosis of cervical region M48.02; G99.2
--- OUTSIDE RECORDS SUMMARY | 2024-07-29 10:48 | XMS_ITS | Patient Health Record ---
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 Name Role Phone Salomon Batista Unavailable [phone] Reason For Referral No Information Medications Medication [...] Influenza IM Intramuscular 09/21/2018 Administered ND 49 [id number] Social History Tobacco Use: Social History Observation [...] Status W/U Status Risk Notes Problem Obesity (739002094) Obesity, unspecified (E66.9) Active confirmed Problem Tobacco user (781128474) Nicotine dependence, cigarettes, uncomplicated (F17.210) Active confirmed Problem Obstructive sleep apnea syndrome (01972792) Obstructive sleep apnea (adult) (pediatric) (G47.33) Active confirmed Problem Essential hypertension (07684498) Essential (primary) hypertension (I10) Active confirmed Plan Of Treatment Pending Test Test Name Order Date HIV 1/2 ANTIGEN/ANTIBODY,FOURTH GENERATI ON W/RFL 04/18/2018 LIPID PANEL 12/26/2017 LIPID PANEL 04/18/2018 COMPREHENSIVE METABOLIC PANEL-[facility] 12/12 CBC (H/H, RBC, INDICES, WBC, PLT) 2017 HEMOGLOBIN A1c 04/18/2018 HEMOGLOBIN A1c 12/26/2017 HEPATITIS B CORE AB TOTAL 04/18/2018 HEPATITIS [...] Start Date Coverage End Date Insurance Pending [facility] [place] [address] Jethro Rinaldi Self - patient is the insured Medical (General) History Medical History History ICD Code hypertension stomach problems Sleep Apnea Surgical History Surgery Date(Month/Year) Left tendon repair 1995 Hospitalization History Reason Date(Month/Year) [place] x1 week stomach issues 1994 [place] x1 week stomach issues 1994
== END 2024-07-29 12:47 | disposition home or self-care (01) ==
PROVIDERS: PCP Internal Medicine; Visit Provider Orthopaedic Surgery
DX: M48.02 Spinal stenosis, cervical region (principal); G99.2 Myelopathy in diseases classified elsewhere
CPT/HCPCS: 99214

== ENCOUNTER → 2024-07-29 10:42 | Outpatient (BNVA) | payer OTHER, SELFPAY | PROVIDERS: PCP Internal Medicine; Visit Provider Orthopaedic Surgery | DX: M48.02 Spinal stenosis, cervical region (principal); G99.2 Myelopathy in diseases classified elsewhere; M25.511 Pain in right shoulder | CPT/HCPCS: 99212 ==

== ENCOUNTER 2024-07-30 19:01 | Outpatient (REF) | payer OTHER, SELFPAY ==
--- NOTE | ~2024-07-30 | MR_ITS ---
EXAMINATION: MR CERVICAL SPINE WITHOUT CONTRAST CLINICAL INFORMATION: Spinal stenosis, cervical region COMPARISON: None available. TECHNIQUE: MRI of the cervical spine was obtained using routine sequences without contrast. Please note that evaluation was prematurely terminated per patient's request. Only localizer, sagittal T2, sagittal STIR, and sagittal T1 sequences were obtained. FINDINGS: Motion artifact is present. The imaged posterior fossa is unremarkable. Straightening of the normal cervical lordosis. No listhesis. No acute bone marrow abnormality. The vertebral body heights are preserved. Multilevel disc desiccation with mild to moderate disc height loss at C5-6. Limited evaluation of the spinal cord demonstrates no definite evidence of abnormal cord signal. There are disc osteophyte complexes at C3-4, C4-5, C5-6, and C6-7. Evaluation for associated spinal canal stenosis or neural foraminal narrowing is limited in the absence of axial sequences. The paravertebral soft tissues appear unremarkable. MR/MR cervical spine wo con IMPRESSION: Limited evaluation due to motion artifact and premature termination of the exam per patient's request. There is evidence of multilevel cervical spondylosis however evaluation for high-grade spinal canal stenosis or neural foraminal narrowing is limited. Recommend repeat examination. Electronically signed by: Ritu Ward MD 07/30/2024 08:44 PM JAMAIR KENDRICK
--- OUTSIDE RECORDS SUMMARY | 2024-07-30 19:03 | XMS_ITS | Patient Health Record ---
Author Organization [facility] Address [address], [place] [id number] Care Team Providers Care Live In Companion Name Role Phone Salomon Batista Unavailable [phone] Reason For Referral No Information Medications Medication [...] Influenza IM Intramuscular 09/21/2018 Administered ND 49 [id number] Social History Tobacco Use: Social History Observation [...] Status W/U Status Risk Notes Problem Obesity (974676776) Obesity, unspecified (E66.9) Active confirmed Problem Tobacco user (559452297) Nicotine dependence, cigarettes, uncomplicated (F17.210) Active confirmed Problem Obstructive sleep apnea syndrome (80116198) Obstructive sleep apnea (adult) (pediatric) (G47.33) Active confirmed Problem Essential hypertension (51966127) Essential (primary) hypertension (I10) Active confirmed Plan [...] Start Date Coverage End Date Insurance Pending [facility] [place] [address] Jethro Rinaldi Self - patient is the insured Medical (General) History Medical History History ICD Code hypertension stomach problems Sleep Apnea Surgical History Surgery Date(Month/Year) Left tendon repair 1995 Hospitalization History Reason Date(Month/Year) [place] x1 week stomach issues 1994 [place] x1 week stomach issues 1994
== END 2024-07-30 19:02 | disposition home or self-care (01) ==
LOC: HO.MRI 19:01
PROVIDERS: PCP Internal Medicine; Visit Provider Orthopaedic Surgery
DX: M48.02 Spinal stenosis, cervical region (principal); G99.2 Myelopathy in diseases classified elsewhere
CPT/HCPCS: 72141

== ENCOUNTER → 2024-09-28 07:23 | Outpatient (BNV) | payer OTHER, SELFPAY | PROVIDERS: PCP Internal Medicine; Visit Provider Radiology Diagnostic Radiology | DX: M47.812 Spondylosis without myelopathy or radiculopathy, cervical region (principal); M48.02 Spinal stenosis, cervical region | CPT/HCPCS: 72141 ==

== ENCOUNTER 2024-09-28 07:24 | Outpatient (REF) | payer OTHER, SELFPAY | END 2024-09-28 07:25 | disposition home or self-care (01) | LOC: HO.MRI 07:24 | PROVIDERS: PCP Internal Medicine; Visit Provider Orthopaedic Surgery | DX: M48.02 Spinal stenosis, cervical region (principal); G99.2 Myelopathy in diseases classified elsewhere | CPT/HCPCS: 72141 ==

== ENCOUNTER 2024-10-10 12:50 | Outpatient (AMB) | payer OTHER, SELFPAY ==
--- NOTE | 2024-10-10 12:54 | A.SPINEOV_ITS ---
Vital Signs 10/10/24 13:01 Height 6 ft 2 in Weight 310 lb BMI 39.8 Intake Visit Reasons: spinal stenosis, cervical region Intake Note: Mr. Rinaldi is here today c/o neck pain with numbness. 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 Was ultimately seen in your office, he did undergo an injection which did help him for few days but ultimately the pain came back. He localizes over the top of the shoulder. There is a component of numbness involved with this but it seems to be more connected to his hands distally in the upper extremity rather than by the shoulder. He does have some on and off neck pain. He has been taking ibuprofen during the day and a leave at night to help with the symptoms. Does report history of dropping things and feelings of weakness in his hands. No myelopathic complaints. He underwent an MRI of the cervical spine showing degenerative disc disease and foraminal narrowing at C5-6 and was sent today for evaluation. He does have tremendous amounts of pain in his hands at night. He also has it when he is driving even short distances. He will have to stop and shake his hands to get the numbness and cramping sensation it go away. PMH: He had a hip replacement done awhile ago, hypertension, he had some kind of pulmonary issue after being exposed to excessive smoke and had a number of different lung infections but that has cleared itself up. That was 2 years ago. Other than that he tells me he is reasonably healthy. Social hx: He does not smoke, drink or use any recreational drugs Medications: Aleve, ibuprofen, hydrochlorothiazide and lisinopril Allergies: No drug allergies Physical exam: Pleasant patient no acute distress, motor examination reveals some mild hand weakness, he has tremendous amounts of tenderness and pain with internal external rotation of his arm with impingement signs on the right shoulder. He has positive Tinel's and positive Phalen's in both hands. No loss of muscle tone or atrophy. Reflexes are normal with no evidence of hyperreflexia. Imaging review: Cervical MRI done at [facility] shows some yduv-pn-qbgglsmx disc degeneration at C5-6, while the radiologist reports bilateral neuroforaminal narrowing I would rate this is mgmz-yl-edbvjjoo as well. There is a little bit at C4-5 on the right as well but it does not appear to compress the nerve. 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 He also has associated various symptoms including tingling and numbness and cramping in his hands with feelings of weakness and dropping things. Some of the numbness can go even as high as his elbow. His MRI does not show any spinal cord compression. He has some vclv-lg-vemtlsqt foraminal narrowing but his hand symptoms are presenting a bit more like carpal tunnel rather than a cervical radiculopathy or myelopathy. I am going to send him for an EMG. In terms of the shoulder pain, the only nerve root that would fit with a shoulder dermatome would be the C5 nerve root and for the most part despite a little bit of foraminal narrowing I do not see any overt nerve compression. Given the amount of pain he has would just simple passive range of motion of his shoulder, it seems more likely it is coming from his shoulder. I can review this with Dr. Prather, but I do not think he would offer him surgery in light of the MRI results from his shoulder showing what is described as severe osteoarthritis by the radiologist. Thank you for allowing us to care for your patient. The total time spent with this visit with this patient was 45 minutes reviewing history, physical exam, cervical MRI imaging review, and implementation of treatment plan or further diagnostic testing Fernandez Prather MD,PhD [facility] Orders: Orders NE electromyogram (EMG) Today G56.00 - Carpal tunnel syndrome, unspecified upper limb Coding Level of Care Code New Pt Level 4 (60804) Diagnoses Carpal tunnel syndrome G56.00
[2024-10-10 13:01] VITALS: BMI 39.8
== END 2024-10-10 13:25 | disposition home or self-care (01) ==
PROVIDERS: PCP Internal Medicine; Referring Provider Orthopaedic Surgery; Visit Provider Physician Assistant
DX: G56.00 Carpal tunnel syndrome, unspecified upper limb (principal)
CPT/HCPCS: 99204

== ENCOUNTER → 2024-10-10 12:50 | Outpatient (BNVA) | payer OTHER, SELFPAY | PROVIDERS: PCP Internal Medicine; Referring Provider Orthopaedic Surgery; Visit Provider Physician Assistant | DX: G56.00 Carpal tunnel syndrome, unspecified upper limb (principal) | CPT/HCPCS: 99202 ==

== ENCOUNTER 2024-10-16 09:42 | Outpatient (REF) | payer OTHER, SELFPAY ==
--- NOTE | 2024-10-16 09:45 | EMG_ITS ---
Chief complaint: Bilateral hand numbness especially at night, right neck/shoulder pain Reason for referral: Evaluate for Carpal Tunnel Syndrome Referred by: Fernandez FREED Procedure done: Bilateral upper extremities NCS/EMG Precautions and/or limitations: None The limb temperature was monitored continuously and remained between 32-36 degrees C during the performance of the NCS. Nerve Conduction Studies Anti Sensory Summary Table ?Stim Site NR Onset (ms) Norm Onset (ms) Peak (ms) Norm Peak (ms) O-P Amp (?V) Norm O-P Amp Site1 Site2 Delta-0 (ms) Dist (cm) Andrey (m/s) Norm Andrey (m/s) Left Median Anti Sensory (2nd Digit) Wrist NR <3.6 >10 Wrist 2nd Digit 14.0 Right Median Anti Sensory (2nd Digit) Wrist NR <3.6 >10 Wrist 2nd Digit 14.0 Right Radial Anti Sensory (Thumb) Forearm ? 1.6 2.2 <3.1 16.0 Forearm Thumb 1.6 0.0 Left Ulnar Anti Sensory (5th Digit) Wrist ? 2.3 3.0 <3.7 10.7 >15.0 Wrist 5th Digit 2.3 14.0 61 Right Ulnar Anti Sensory (5th Digit) Wrist ? 2.7 3.4 <3.7 6.9 >15.0 Wrist 5th Digit 2.7 14.0 52 Motor Summary Table ?Stim Site NR Onset (ms) Norm Onset (ms) O-P Amp (mV) Norm O-P Amp iAmp (mV) Amp (1st) (%) Site1 Site2 Delta-0 (ms) Dist (cm) Andrey (m/s) Norm Andrey (m/s) Left Median Motor (Abd Poll Brev) Wrist ? 6.6 <3.9 7.3 >4.5 8.7 100.0 Elbow Wrist 4.7 24.0 51 >45 Elbow ? 11.3 4.1 5.0 56.2 Right Median Motor (Abd Poll Brev) Wrist ? 7.2 <3.9 4.4 >4.5 5.2 100.0 Elbow Wrist 5.5 25.0 45 >45 Elbow ? 12.7 1.9 2.3 43.2 Left Ulnar Motor (Abd Dig Minimi) Wrist ? 3.0 <3.0 7.0 >5 8.5 100.0 B Elbow Wrist 3.9 22.0 56 >45 B Elbow ? 6.9 6.3 7.9 90.0 A Elbow B Elbow 1.5 10.0 67 >45 A Elbow ? 8.4 6.3 8.2 90.0 Right Ulnar Motor (Abd Dig Minimi) Wrist ? 3.0 <3.0 8.7 >5 10.3 100.0 B Elbow Wrist 3.3 22.0 67 >45 B Elbow ? 6.3 7.8 9.8 89.7 A Elbow B Elbow 1.9 10.0 53 >45 A Elbow ? 8.2 8.1 9.9 93.1 EMG ?Side Muscle Nerve Root Ins Act Fibs Psw Amp Dur Poly Recrt Int Pat Comment Right 1stDorInt Ulnar C8-T1 Nml Nml Nml Nml Nml 0 Nml Complete Right FlexCarRad Median C6-7 Nml Nml Nml Nml Nml 0 Nml Complete Right Biceps Musculocut C5-6 Nml Nml Nml Nml Nml 0 Nml Complete Right Triceps Radial C6-7-8 Nml Nml Nml Nml Nml 0 Nml Complete Right Deltoid Axillary C5-6 Nml Nml Nml Nml Nml 0 Nml Complete Left 1stDorInt Ulnar C8-T1 Nml Nml Nml Nml Nml 0 Nml Complete Left FlexCarRad Median C6-7 Nml Nml Nml Nml Nml 0 Nml Complete Left Biceps Musculocut C5-6 Nml Nml Nml Nml Nml 0 Nml Complete Left Triceps Radial C6-7-8 Nml Nml Nml Nml Nml 0 Nml Complete Left Deltoid Axillary C5-6 Nml Nml Nml Nml Nml 0 Nml Complete FINDINGS: Right median motor nerve showed prolonged distal latency, small amplitude and normal conduction velocity. Left median motor nerve showed prolonged distal latency, normal amplitude and normal conduction velocity. Bilateral median sensory nerves showed absent response. All other nerves tested were within normal. Concentric needle EMG was performed in selected muscles of the bilateral upper extremities. Study did not reveal signs of electric abnormalities as shown in the table above. IMPRESSION: 1. This is an abnormal study. 2. There is electrodiagnostic evidence for bilateral moderate-severe median neuropathy at the wrist, consistent with carpal tunnel syndrome. 3. There is no electrodiagnostic evidence for ulnar neuropathy, brachial plexopathy, or cervical radiculopathy. Thank you for your kind referral. Samantha De Leon MD, RENAN Board Certified, [place] Board of Physical Medicine and Rehabilitation (ABPMR) Board Certified, [place] Board of Electrodiagnostic Medicine (ABEM) CODIN [phone] x 2 MTDD
== END 2024-10-16 09:43 | disposition home or self-care (01) ==
LOC: HO.NEURO 09:42
PROVIDERS: PCP Internal Medicine; Visit Provider Physician Assistant
DX: G56.03 Carpal tunnel syndrome, bilateral upper limbs (principal)
CPT/HCPCS: 95886; 95911

== ENCOUNTER → 2024-10-16 09:45 | Outpatient (BNV) | payer OTHER, SELFPAY | PROVIDERS: PCP Internal Medicine; Visit Provider Physical Medicine & Rehabilitation | DX: G56.03 Carpal tunnel syndrome, bilateral upper limbs (principal) | CPT/HCPCS: 95886; 95911 ==

== ENCOUNTER 2024-12-19 08:03 | Day surgery (SDC) | payer OTHER, SELFPAY ==
[2024-12-17 07:27] VITALS: BMI 45.6
--- NOTE | 2024-12-17 13:50 | P.CONAN_ITS ---
Documented by User: Betzy Wharton NP 12/17/24 13:52 HPI - Anesthesia Eval Consult details Narrative: 44yo M for Right Carpal Tunnel Release BMI 45.6 PMFSH Active Problems Active Problems: All Active Problems Carpal tunnel syndrome (Acute) Neuroforaminal stenosis of cervical spine (Acute) Myelopathy concurrent with and due to spinal stenosis of cervical region (Acute) Painful arc syndrome of right shoulder (Acute) History of total right hip replacement (Acute ~12/19/23) Pre-op evaluation (Acute) Encounter for preoperative pulmonary examination (Acute) Post traumatic osteoarthritis of hip (Acute) Arthritis of right hip (Acute) Hip arthritis (Acute) Hip pain (Acute) Dyspnea on minimal exertion (Acute) Cough (Acute) Tobacco dependence (Acute) Asthma (Acute) Bronchitis (Acute) Obstructive sleep apnea (Acute) Skin lesions (Acute) Morbid obesity (Acute) Hypertension (Acute) Past Medical History Medical History (Updated 10/10/24 @ 13:29 by LOURDES Robison) Sleep apnea Asthma Osteoarthritis Skin lesions Morbid obesity Hypertension Family History Family History Father Diabetes Mother No problems noted. Family history of problems with anesthesia: No Surgical History Surgical History (Updated 12/19/24 @ 09:48 by Ema Brown RN) Status post total hip replacement, right H/O left wrist surgery History of surgical removal of skin lesion History of Problems with Anesthesia: No Social History Social History Household Members: Other Household Members Other:: sister Housing: House Housing Other:: basement apartment with walk-out door Are you a primary hearing healthcare practitioner to a significant other at home: No Do you presently have visiting nurse or other home services: No Alcohol intake: current Alcohol intake frequency: does not drink Patient Tobacco Use Status: Former Tobacco user Tobacco use type: Cigarette Years Smoked: 25 e-Cigarette/Vaping Use: Never Used Second Hand Smoke Exposure: No Use of substances other than those prescribed or required for medical reasons: No Are you DNR?: No Advance Directives: No Advance Directives Information Provided: Yes Poor oral hygiene: No service: No Current occupational status: employed Current occupation: rt handed Cognitive needs: No Hearing needs: No Vision needs: No Meds Allergies Allergy/AdvReac Type Severity Reaction Status Date / Time cashew nut [CASHEW NUT] Allergy Severe ANAPHYLAXIS Verified 07/29/24 10:58 Exam Height,Weight and Vital Signs: Height 6 ft 2 in Weight 161 kg Pertinent Lab Results Pertinent Lab Results: Laboratory Tests 06/04/24 02:04 WBC 6.9 Hgb 12.6 L Hct 37.5 L Plt Count 275 Sodium 137 Potassium 4.2 Chloride 106 Carbon Dioxide 21 L BUN 35 H Creatinine 1.38 Narrative Narrative: EKG 2023 Vent. Rate : 101 BPM Atrial Rate : 101 BPM P-R Int : 150 ms QRS Dur : 090 ms QT Int : 342 ms P-R-T Axes : 052 034 041 degrees QTc Int : 443 ms Sinus tachycardia Otherwise normal ECG When compared with ECG of 11-DEC-2023 12:39, No significant change was found Assessment and Plan Assessment Anesthesia Assessment: Chart Reviewed Final Anesthetic Review Family History of Problems with Anesthesia: No History of Problems with Anesthesia: No Documented by User: Sue Siegel MD 12/19/24 12:43 [facility] Past Medical History Medical History (Updated 10/10/24 @ 13:29 by LOURDES Robison) Sleep apnea Asthma Osteoarthritis Skin lesions Morbid obesity Hypertension Family History Family History Father Diabetes Mother No problems noted. Surgical History Surgical History (Updated 12/19/24 @ 09:48 by Ema Brown RN) Status post total hip replacement, right H/O left wrist surgery History of surgical removal of skin lesion Social History Social History Household Members: Other Household Members Other:: sister Housing: House Housing Other:: basement apartment with walk-out door Are you a primary hearing healthcare practitioner to a significant other at home: No Do you presently have visiting nurse or other home services: No Alcohol intake: current Alcohol intake frequency: does not drink Patient Tobacco Use Status: Former Tobacco user Tobacco use type: Cigarette Years Smoked: 25 e-Cigarette/Vaping Use: Never Used Second Hand Smoke Exposure: No Use of substances other than those prescribed or required for medical reasons: No Are you DNR?: No Advance Directives: No Advance Directives Information Provided: Yes Poor oral hygiene: No service: No Current occupational status: employed Current occupation: rt handed Cognitive needs: No Hearing needs: No Vision needs: No Meds Allergies Allergy/AdvReac Type Severity Reaction Status Date / Time cashew nut [CASHEW NUT] Allergy Severe ANAPHYLAXIS Verified 07/29/24 10:58 Exam Airway Mallampati Class: III TM Dist: >3cm Neck ROM: Full Heart: rrr Lungs: cta Assessment and Plan Assessment Anesthesia Assessment: Anesthesia Plan Discussed Final Anesthetic Review NPO: Yes ASA Class: III Final Preanesthetic Review: No Changes in Pt Med Stat, Meds/Allgs Chart Reviewed, Consent Obtained/Reviewed and Anes Risks/Benef Reviewed Patient Risk: Intermediate Procedure Risk: Low Anesthetic Plan Anesthetic Plan: MAC: Disposition: Standard PACU
[2024-12-19 09:48] VITALS: BMI 40.9
[2024-12-19 09:59] VITALS: BP 124/78; PULSE 91; RESP 18; TEMP 36.7; O2SAT 95
[2024-12-19] MEDS: Lactated Ringers 1,000 ML 100 ML IVCONT (10:13)
--- NOTE | 2024-12-19 11:53 | MHC.SHP ---
Pre-Procedural Eval Section A - 24 Hr Update-Section A only Date of Service: 12/19/24 The patient is an INPATIENT: No Section B - Complete if H&P > 30 days Chief Complaint: Carpal tunnel syndrome, unspecified upper limb Details of Present Illness: Right carpal tunnel syndrome Allergies: Allergies Allergy/AdvReac Type Severity Reaction Status Date / Time cashew nut [CASHEW NUT] Allergy Severe ANAPHYLAXIS Verified 07/29/24 10:58 Review of Systems Sugical H&P ROS: Negative: Constitution, Cardiovascular, Respiratory, Neurological, Psychiatric, Hem-Onc, Allergic/Immunologic, Gastrointestinal, Genitourinary, Musculoskeletal, Integumentary, Endocrine and Eyes/Ears/Nose/Throat Exam Surgical H&P Exam: Normal: HEENT, Normal: Heart, Normal: Lungs, Normal: Extremities, Normal: Abdomen, Normal: Skin and Normal: Neurological (Awake, alert) Plan Diagnosis/Plan: Unchanged I have reviewed the history and physical and performed a pertinent physical examination on my patient. No changes have occurred unless specified. Right carpal tunnel release Time Spent With Patient Time: Total time managing care of this patient today _4___ minutes.
[2024-12-19] MEDS: ceFAZolin Sodium/Dextrose,Iso 2 GM/50 ML PIGGYBACK IV (12:55)
--- NOTE | 2024-12-19 13:07 | PM.DS ---
DS: Providers Provider Date of Service: 12/19/24 Date of discharge: 12/19/24 Primary care physician: Unknown Physician Admitting clinician: Reji Prather DS: Diagnosis Discharge Diagnosis (1) Carpal tunnel syndrome: Status: Acute DS: Summary Time Attestation Discharge Coordination Time (in mins): 5 Quality: Safe Use of Opioids Does Pt have an Active Cancer Diagnosis on the Problem List?: No Quality: Stroke Does the patient have a stroke diagnosis?: No Physical Exam Vital Signs: Vital Signs: Last Vital Signs Temp 98.0 F 12/19/24 09:59 Pulse 91 12/19/24 09:59 Resp 18 12/19/24 09:59 BP 124/78 12/19/24 09:59 Pulse Ox 95 12/19/24 09:59 O2 Del Method Room Air 12/19/24 09:59 BMI result Body Mass Index 40.9 DS: Data Data Completed and Pending Completed studies during hospitalization [Text1]: Procedures Replacement of Right Hip Joint with Ceramic Synthetic Substitute, Uncemented, Open Approach (12/19/23) Discharge Plan Discharge Patient Disposition: Home, Self-Care Referrals: Physician,Unknown J [Primary Care Provider] - 1 Week Discharge Medications: New tramadol 50 mg tablet 50 mg PO Q6H PRN (Reason: pain) Qty: 10 0RF Continued (DME) walker Misc See Rx Instructions .MEDSUPPLY Qty: 1 0RF Rx Instructions: Folding Front wheeled walker (DME) cane Device See Rx Instructions .MEDSUPPLY Qty: 1 0RF Rx Instructions: single-point cane lisinopril 40 mg tablet 40 mg PO DAILY Qty: 90 3RF hydrochlorothiazide 25 mg tablet 25 mg PO DAILY Qty: 90 3RF tramadol 50 mg tablet 50 mg PO Q6H PRN (Reason: severe pain (scale score 7-10)) Qty: 20 0RF acetaminophen 325 mg Tablet 650 mg PO Q6H PRN (Reason: Pain, Mild (Pain Scale 1-3)) 30 Days Qty: 240 0RF celecoxib 200 mg Capsule 200 mg PO BID 30 Days Qty: 60 0RF docusate sodium 100 mg Capsule 100 mg PO BID 30 Days Qty: 60 0RF ibuprofen 600 mg tablet 600 mg PO Q6H PRN (Reason: fever or pain) Qty: 30 0RF albuterol sulfate 90 mcg/actuation HFA aerosol inhaler 2 puff inhalation Q4-6H PRN (Reason: shortness of breath or wheezing) Qty: 1 6RF fluticasone propion-salmeterol [AirDuo RespiClick] 232-14 mcg/actuation aerosol powdr breath activated 1 inh inhalation BID Qty: 1 3RF Held aspirin 325 mg Tablet 325 mg PO BID 42 Days Qty: 84 0RF Hold Instructions: Resume on 12/22/24. You may resume in 3 days Discharge Orders: Discharge Order (Routine); Ordered 12/19/24 Ordered By: Fernandez Cardona Diet: Advance to usual diet Activity on Discharge: As tolerated Activity Restrictions/Additional Instructions: After your carpal tunnel release we ask that you follow these guidelines: You may remove your margoth wrap on post op day 3, as well as the dressing underneath it There are sutures in your wound, and you will need these removed 10-14 days after surgery. Please call the office to arrange this visit, You can use your hand as much as you like, however, please avoid straining or heavy lifting It will help swelling in your hand to keep it elevated when you are not using it. You can shower on post op day 1, but please keep wound dry You can drive when you feel comfortable and are off narcotics If you experience any signs of infection such as fever, chills or redness/discharge from your wound,please call office right away Print Language: Greenlandic
--- NOTE | 2024-12-19 13:23 | W.PM.OPN ---
Operative Note Operative Note Date of Service: 12/19/24 Narrative: Diagnosis: Right carpal tunnel syndrome Procedure: Right median nerve release Surgeon: Reji Prather MD PhD Description procedure: This 44-year-old male is suffering from a right carpal tunnel syndrome. The patient was offered a decompression of the median nerve. The procedure complications were explained. The patient was consented. The patient was brought to the operating room, where moderate sedation was applied. Prepping and draping was done followed by time-out. Marcaine was injected into the mid volar region. A midvolar incision was made. The ligamentum carpi transversum was opened sharply until the median nerve became visible. A Metzenbaum scissor was used to decompress the median nerve proximally and distally over its trajectory. Severe compression was present due to excessive atrophy of the ligament. Hemostasis was done. The incision was closed with 3 interrupted sutures. A compressive BRENNEN wrap was used for hemostasis. All sponge and needle counts were correct. Patient was transported to the recovery room. Anesthesia: Moderate sedation and local anesthetic Blood loss: Minimal Complications: None Disposition: Discharge home
[2024-12-19 13:25] VITALS: BP 100/55; PULSE 90; RESP 12; TEMP 36.1; O2SAT 97
[2024-12-19 13:40] VITALS: BP 102/63; PULSE 96; RESP 16; O2SAT 97
[2024-12-19 13:50] VITALS: BP 115/53; PULSE 92; RESP 16; TEMP 36.2; O2SAT 97
== END 2024-12-19 14:31 | disposition home or self-care (01) ==
PROVIDERS: Visit Provider Neurological Surgery
PROC: (CPT 64721; principal; 2024-12-19 13:20)
DX: G56.01 Carpal tunnel syndrome, right upper limb (principal); M79.641 Pain in right hand; M25.511 Pain in right shoulder; R20.0 Anesthesia of skin; M50.322 Other cervical disc degeneration at C5-C6 level; J45.909 Unspecified asthma, uncomplicated; I10 Essential (primary) hypertension; G47.33 Obstructive sleep apnea (adult) (pediatric); Z79.1 Long term (current) use of non-steroidal anti-inflammatories (NSAID); Z91.018 Allergy to other foods; Z77.22 Contact with and (suspected) exposure to environmental tobacco smoke (acute) (chronic); Z96.641 Presence of right artificial hip joint; Z87.891 Personal history of nicotine dependence
CPT/HCPCS: 64721; J0690; J2003; J2250; J3010

== ENCOUNTER → 2024-12-19 08:03 | Outpatient (BNV) | payer OTHER, SELFPAY | PROVIDERS: Visit Provider Physician Assistant | DX: G56.01 Carpal tunnel syndrome, right upper limb (principal) | CPT/HCPCS: 64721; 99499 ==

== ENCOUNTER 2024-12-31 13:13 | Outpatient (AMB) | payer OTHER, SELFPAY ==
--- NOTE | 2024-12-31 13:15 | HO.SPINEOV ---
Intake Visit Reasons: suture removal Intake Note: Mr. Rinaldi is here today to have his Suture removal. President Practicing Urologist Required: No Allergies cashew nut [CASHEW NUT] Allergy (Severe, Verified 12/31/24 13:16) ANAPHYLAXIS Assessment & Plan Assessment & Plan (1) Carpal tunnel syndrome: Code(s): G56.00 - Carpal tunnel syndrome, unspecified upper limb Category: Medical Plan Jethro comes in today for suture removal S/P right medial nerve release on 12/19/24. He reports that a few days ago he was doing yard work in his stitches broke over the incision site on his ventral wrist. He has been cleansing the area with alcohol swabs and keeping a fabric bandage over it. He has no pain to palpation of the area and reports no active drainage. I sent an image of his incision site to the attending neurosurgeon Dr. Prather who recommended we allow the wound to heal via secondary intention. No new neurological deficits. The patient is able to curl his fingertips to the distal palmar crease without issue. No pain to palpation of the incision site on examination. No palpable drainage. I encouraged the patient to continue utilizing fabric bandages as needed. I provided him with some Hibiclens to use in the shower. Encouraged him to keep the area clean, and reduce overall usage of the hand for the time being. I also sent in a course of doxycycline 100 mg b.i.d. x5 days to cover for skin infection. This was discussed with the attending neurosurgeon who is in agreement. I would like to follow up closely and have him follow up again next week. Gurwinder Prather MD,PhD [facility] Medications: New doxycycline hyclate 100 mg PO BID 10 caps 0RF surgical prophylaxis Coding Level of Care Code Global (02409) Diagnoses Carpal tunnel syndrome G56.00
== END 2024-12-31 13:43 | disposition home or self-care (01) ==
LOC: HO.HNS 13:13
PROVIDERS: Visit Provider Physician Assistant
DX: G56.00 Carpal tunnel syndrome, unspecified upper limb (principal)
CPT/HCPCS: 99024

== ENCOUNTER → 2024-12-31 13:13 | Outpatient (BNVA) | payer OTHER, SELFPAY | PROVIDERS: Visit Provider Physician Assistant | DX: Z48.1 Encounter for planned postprocedural wound closure (principal); Z98.890 Other specified postprocedural states | CPT/HCPCS: 99212 ==

== ENCOUNTER 2025-01-15 13:33 | Outpatient (AMB) | payer OTHER, SELFPAY ==
--- NOTE | 2025-01-15 13:34 | HO.SPINEOV ---
Intake Visit Reasons: incision check Intake Note: Mr. Rinaldi is here today to have his incision checked. Ordering Machine Operator Required: No Allergies cashew nut [CASHEW NUT] Allergy (Severe, Verified 12/31/24 13:16) ANAPHYLAXIS Assessment & Plan Assessment & Plan (1) Carpal tunnel syndrome: Code(s): G56.00 - Carpal tunnel syndrome, unspecified upper limb Category: Medical Plan Procedure: Right sided carpal tunnel release Jethro comes in today for a subsequent office visit after having a right-sided carpal tunnel release completed by Dr. Prather on 12/19/24. Thankfully, the incision which had opened over his right ventral wrist has nearly completely closed. The patient reports that he overall is very happy with the surgery, and is able to sleep at night now. He reports no significant pain when utilizing his right hand, but does state that he has a bit of continued pressure near the incision site. He inquired about having his right hand completed which he discussed with LOURDES Cardona after his EMG. I reviewed the EMG which does state he has bilateral moderate-severe median neuropathy. No new neurological deficits. The patient is able to curl his fingertips to the distal palmar crease without much issue. His incision site is well approximated but still open and slightly scabbed over. I was able to sit down with our surgical instrument maker in book Jethro for a left-sided carpal tunnel release on February 06 2025. Gurwinder Prather MD,PhD [facility] Coding Level of Care Code Global (79338) Diagnoses Carpal tunnel syndrome G56.00
== END 2025-01-15 13:46 | disposition home or self-care (01) ==
LOC: HO.HNS 13:34
PROVIDERS: Visit Provider Physician Assistant
DX: G56.00 Carpal tunnel syndrome, unspecified upper limb (principal)
CPT/HCPCS: 99024

== ENCOUNTER → 2025-01-15 13:33 | Outpatient (BNVA) | payer OTHER, SELFPAY | PROVIDERS: Visit Provider Physician Assistant | DX: G56.00 Carpal tunnel syndrome, unspecified upper limb (principal) | CPT/HCPCS: 99212 ==

== ENCOUNTER 2025-01-29 14:10 | Outpatient (AMB) | payer OTHER, SELFPAY ==
--- NOTE | 2025-01-29 14:12 | MHC.PC.OV ---
Vital Signs 01/29/25 14:13 Height 6 ft 2 in Weight 313 lb BMI 40.2 BP 114/80 Blood Pressure Location Lt brachial Position Sitting Pulse 80 Pulse Source Pulse Oximeter Pulse Oximetry (%) 99 Oxygen Delivery Method Room Air Intake Visit Reasons: ABIGAIL DR Otto Corsage Maker Required: No Accompanied by: Self / Same As Patient Allergies cashew nut (CASHEW NUT) Allergy (Severe, Verified 01/29/25 14:14) ANAPHYLAXIS Medication List - Last Reconciled 01/29/25 by Kashif Dee MD albuterol sulfate 90 mcg/actuation 2 puffs inhalation Q4-6H PRN cane single-point cane fluticasone propion-salmeterol 232-14 mcg/actuation (AirDuo RespiClick) 1 inh inhalation BID hydrochlorothiazide 25 mg PO DAILY ibuprofen 600 mg PO Q6H PRN lisinopril 40 mg PO DAILY walker Folding Front wheeled walker Tobacco use date assessed: 01/29/25 Dental Screening Dental Screen Date: 01/29/25 Did you have a dental visit in the last 12 months?: No Did you have a dental problem in the last 6 months where you did not have access to dental care?: No Was dental information given to patient?: Patient has dentist [facility] Medical History (Updated 01/29/25 @ 14:54 by Kashif Dee MD) Sleep apnea Asthma Osteoarthritis Skin lesions Morbid obesity Hypertension Surgical History Status post total hip replacement, right H/O left wrist surgery History of surgical removal of skin lesion Family History Father Diabetes Mother No problems noted. Social History (Updated 01/29/25 @ 14:49 by Kashif Dee MD) Household Members: Other Household Members Other:: sister Housing: House Housing Other:: basement apartment with walk-out door Are you a primary skin care instructor to a significant other at home: No Do you presently have visiting nurse or other home services: No Alcohol intake: current Alcohol intake frequency: does not drink Comment: once a week 6 beers Patient Tobacco Use Status: Former Tobacco user Tobacco use type: Cigarette Years Smoked: 25 quit 2021 e-Cigarette/Vaping Use: Never Used Second Hand Smoke Exposure: No service: No Current occupational status: employed Current occupation: rt handed Cognitive needs: No Hearing needs: No Vision needs: No Questionnaire PHQ-9 Over the last 2 weeks, how often have you been bothered by any of the following problems? 1. Little interest or pleasure in doing things: not at all 2. Feeling down, depressed, or hopeless: more than half the days 3. Trouble falling or staying asleep, or sleeping too much: more than half the days 4. Feeling tired or having little energy: more than half the days 5. Poor appetite or overeating: more than half the days 6. Feeling bad about yourself - or that you are a failure or have let yourself or your family down: more than half the days 7. Trouble concentrating on things, such as reading the newspaper or watching television: more than half the days 8. Moving or speaking so slowly that other people could have noticed. Or the opposite - being so fidgety or restless that you have been moving around a lot more than usual: several days 9. Thoughts that you would be better off or of hurting yourself in some way: not at all Total score: 13 Source: Developed by Drs. Ben Aldrich, Dianna Thomas, Mansoor Nevarez and colleagues, with an educational isabelle from [employer]. Thrive Questionnaire Date Thrive assessed: 01/29/25 I am a: Patient What is your living situation today?: I have a steady place to live Within the past 12 months, did the food you bought not last and you didn't have the money to get more?: Never true Within the past 12 months, did you worry whether your food would run out before you got money to buy more?: Never true Do you have trouble paying for medicines?: No Do you have trouble getting transportation to medical appointments?: No Do you have trouble paying your heating and electricity bill?: No Do you have trouble taking care of your child, family member or friend?: No Do you have trouble with day-to-day activities such as bathing, preparing meals, shopping, managing finances, etc.?: I choose not to answer this question Are you currently unemployed and looking for a job?: I choose not to answer this question Are you interested in more education?: I choose not to answer this question Please select the resources that you would like help with: None Currently or been in a relationship where the following occur: I choose not to answer THRIVE Score: 0 AUDIT C Alcohol Use Questionnaire (AUDIT-C) 1. How often do you have a drink containing alcohol?: 2-4 times a month 2. How many drinks containing alcohol do you have on a typical day when you are drinking?: 5 or 6 3. How often do you have six or more drinks on one occasion?: Monthly Total Score: 6 NOREEN-7 AMB Questionnaire NOREEN-7 Date NOREEN - 7 assessed: 01/29/25 Feeling nervous, anxious, or on edge: 0 = Not at all Not being able to stop or control worryin = Not at all Worrying too much about different things: 0 = Not at all Trouble relaxin = More than half the days Being so restless that it is hard to sit still: 1 = Several days Becoming easily annoyed or irritable: 1 = Several days Feeling afraid as if something awful might happen: 0 = Not at all Total NOREEN-7 score (0-4 normal; 5-9 mild; 10-14 moderate; 15-21 severe): 4 Source: Developed by Drs. Ben Aldrich, Dianna Thomas, Mansoor Nevarez and colleagues, with an educational isabelle from [employer]. Physical exam (Primary Care) Vital Signs: Last Vital Signs Pulse 80 01/29/25 14:13 BP 114/80 01/29/25 14:13 Pulse Ox 99 01/29/25 14:13 Oxygen Delivery Method Room Air 01/29/25 14:13 BMI result Body Mass Index 40.2 Tobacco/Smoking Status: Tobacco use Status Tobacco use date assessed 01/29/25 01/29/25 14:20 Patient Tobacco Use Status Former Tobacco user 01/29/25 14:49 Tobacco use type Cigarette 01/29/25 14:49 e-Cigarette/Vaping Use Never Used 01/29/25 14:49 PHQ-9: PHQ-9 Score PHQ-9: Total score 13 01/29/25 14:40 Thrive Assessment: Date of Thrive Assessment Date Thrive assessed 01/29/25 01/29/25 14:20 Currently or been in a relationship where the following occur: I choose not to answer Const General: alert; No acute distress Eyes Conjunctivae: conjunctivae normal Resp Auscultation: clear to auscultation bilaterally Cardio Rate: regular rate Rhythm: regular rhythm GI Inspection: Yes normal to inspection Extrem General: Yes normal to inspection and No edema Coding Level of Care Code Est Pt Level 4 (45177) Complex EM visit Add On G2211 Diagnoses Morbid obesity E66.01 Hypertension I10 Neuroforaminal stenosis of cervical spine M48.02 Obstructive sleep apnea G47.33 Carpal tunnel syndrome of right wrist G56.01 Carpal tunnel syndrome of left wrist G56.02 Renal insufficiency N28.9 Impaired fasting blood sugar R73.01 LFT elevation R79.89 Assessment & Plan Assessment & Plan (1) Morbid obesity: Code(s): E66.01 - Morbid (severe) obesity due to excess calories Category: Medical Plan: Diet and exercise (2) Hypertension: Code(s): I10 - Essential (primary) hypertension Category: Medical Plan: Continue with blood pressure medication. Decrease salt intake and exercise patient is on hydrochlorothiazide 25 mg once a day lisinopril 40 mg once a day (3) Neuroforaminal stenosis of cervical spine: Code(s): M48.02 - Spinal stenosis, cervical region Category: Medical Plan: Patient is being followed up by Orthopedics and spine surgeon (4) Obstructive sleep apnea: Code(s): G47.33 - Obstructive sleep apnea (adult) (pediatric) Category: Medical Plan: Discussion about treatment of obstructive sleep apnea (5) Carpal tunnel syndrome of right wrist: Comment: Status post release December 2024 Code(s): G56.01 - Carpal tunnel syndrome, right upper limb Category: Medical Plan: Status post release by the neurosurgeon. (6) Carpal tunnel syndrome of left wrist: Code(s): G56.02 - Carpal tunnel syndrome, left upper limb Category: Medical Plan: release schedule 03/08/2025 planned (7) Renal insufficiency: Code(s): N28.9 - Disorder of kidney and ureter, unspecified Category: Medical (8) Impaired fasting blood sugar: Code(s): R73.01 - Impaired fasting glucose Category: Medical (9) LFT elevation: Code(s): R79.89 - Other specified abnormal findings of blood chemistry Category: Medical Plan History of Present Illness The patient is a 44-year-old male presenting with hypertension, obstructive sleep apnea, and cervical spine issues. Hypertension is managed with hydrochlorothiazide and lisinopril, with current blood pressure control being satisfactory. The patient has a history of obstructive sleep apnea, previously managed with CPAP, but currently not in use due to discomfort following hip replacement surgery. Weight loss has been achieved through dietary changes, contributing to improved symptoms of sleep apnea. Cervical spine issues include cervical spondylosis and spinal canal stenosis, with MRI findings indicating bilateral neuroforaminal narrowing at C5-C6 and right neuroforaminal narrowing at C4-C5. The patient has been evaluated by orthopedics and a spine surgeon, with ongoing management for associated shoulder pain and carpal tunnel syndrome. The patient also reports a history of anemia, with previous blood work showing mild anemia and elevated renal function markers. Elevated blood sugar levels were noted, but a formal diagnosis of diabetes has not been made. Social history reveals a significant reduction in alcohol consumption and cessation of smoking approximately two years ago. The patient has a history of hip arthritis, with a previous hip replacement and ongoing pain in the contralateral hip. Health Maintenance - Advised to maintain a healthy diet and regular exercise to support weight management and overall health. - Recommended to avoid smoking and limit alcohol consumption to reduce health risks. - Encouraged to use CPAP for obstructive sleep apnea when possible to prevent cardiovascular complications. - Scheduled for follow-up blood work to monitor anemia and renal function. - Ultrasound of the liver ordered to investigate previous elevated liver enzymes. 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 - Substance Use: Quit smoking two years ago, occasional alcohol consumption reported. - Exercise: Increased physical activity noted, contributing to weight loss. - Diet: Improved dietary habits with reduced fast food intake. Review of Systems - Cardiovascular: Denies chest pain or palpitations. - Respiratory: Reports improved breathing with weight loss, denies current dyspnea. - Neurological: Reports numbness in arms when sleeping, denies seizures. - Musculoskeletal: Reports hip and shoulder pain, denies recent trauma. Physical Exam General: Cooperative, healthy appearing, comfortable, no acute distress and well developed Orientation: Patient oriented x3 Limitations: No limitations Head: Normal to inspection Ears: Hearing grossly normal bilaterally Nose: Normal external nose present Face and sinus: Normal facial exam Eyes: Appearance normal, both eyes and all related structures Neck: Normal visual inspection and Yes full ROM Respiratory: Normal respiratory effort and able to speak in complete sentences. Clear to auscultation bilaterally Cardiovascular: Regular rate and rhythm. Normal S1 and S2 GI: Normal to inspection. Soft to palpation and nontender Skin: No rashes or lesions noted Neuro: Patient oriented x3 Extremities: Normal to inspection Results - MRI of Cervical Spine: Cervical spondylosis at C5-C6 and C6-C7, cervical spinal canal stenosis, bilateral neuroforaminal narrowing at C5-C6, right neuroforaminal narrowing at C4-C5, no cord edema or myelopathy. - Blood Work: Mild anemia with hemoglobin 12.6 g/dL, elevated creatinine at 1.38 mg/dL, elevated fasting blood sugar at 137 mg/dL. Plan The management plan includes continued use of hydrochlorothiazide and lisinopril for hypertension, with regular monitoring of blood pressure to ensure control. For obstructive sleep apnea, the patient is encouraged to resume CPAP use when feasible to prevent cardiovascular complications, and weight management is emphasized as a supportive measure. Cervical spine issues will continue to be managed by the spine surgeon, with follow-up appointments to assess the need for further intervention. The patient is advised to follow up with orthopedics for shoulder pain management and to consider alternative pain management strategies to minimize kidney impact from NSAIDs. Anemia and renal function will be monitored with follow-up blood work, and dietary adjustments are recommended to support overall health. An ultrasound of the liver is ordered to investigate previous elevated liver enzymes, and the patient is advised to maintain a healthy lifestyle to support liver function. Patient was informed and verbally consented to the use of an ambient scribe for clinic note documentation during this visit. Discussion Notes I discussed with the patient the importance of managing hypertension with medication adherence and regular monitoring. We reviewed the benefits of using CPAP for sleep apnea and the potential cardiovascular risks if left untreated. The patient was informed about the need for follow-up with the spine surgeon and orthopedics for ongoing management of cervical spine and shoulder issues. We also discussed the implications of elevated blood sugar and anemia, emphasizing the importance of dietary management and regular blood work. The patient was advised on the risks of NSAID use on kidney function and the need for alternative pain management strategies. An ultrasound of the liver was recommended to investigate previous elevated liver enzymes, and the patient was encouraged to maintain a healthy lifestyle to support overall health. Patient Instructions - Continue taking hydrochlorothiazide and lisinopril as prescribed. - Use CPAP for sleep apnea when possible. - Follow up with spine surgeon and orthopedics as scheduled. - Monitor blood pressure regularly. - Schedule follow-up blood work for anemia and renal function. - Maintain a healthy diet and exercise regularly. - Avoid NSAIDs to protect kidney function. - Attend ultrasound appointment for liver evaluation. Orders: Orders Hepatitis B,C Profile Today R79.89 - Other specified abnormal findings of blood chemistry US abdomen complete Today R79.89 - Other specified abnormal findings of blood chemistry Hemoglobin A1c Today R73.01 - Impaired fasting glucose Comprehensive Met. Panel Today R73.01 - Impaired fasting glucose Free T4 (Free Thyroxine) Today R73.01 - Impaired fasting glucose Lipid Panel Today E78.00 - Pure hypercholesterolemia, unspecified, R73.01 - Impaired fasting glucose Complete Blood Count Auto Diff Today R73.01 - Impaired fasting glucose Thyroid Stimulating Hormone Today R73.01 - Impaired fasting glucose Vitamin B12 and Folate Today N28.9 - Disorder of kidney and ureter, unspecified Medications: New gabapentin 100 mg PO BEDTIME 30 caps 3RF G99.2 - Myelopathy in diseases classified elsewhere, M48.02 - Spinal stenosis, cervical region
[2025-01-29 14:13] VITALS: BP 114/80; PULSE 80; O2SAT 99; BMI 40.2
== END 2025-01-29 15:04 | disposition home or self-care (01) ==
LOC: HO.HMCH 14:11
PROVIDERS: Visit Provider Internal Medicine
DX: I10 Essential (primary) hypertension (principal); E66.01 Morbid (severe) obesity due to excess calories; Z68.41 Body mass index [BMI] 40.0-44.9, adult; M48.02 Spinal stenosis, cervical region; G47.33 Obstructive sleep apnea (adult) (pediatric); G56.03 Carpal tunnel syndrome, bilateral upper limbs; N28.9 Disorder of kidney and ureter, unspecified; R73.01 Impaired fasting glucose; R79.89 Other specified abnormal findings of blood chemistry

== ENCOUNTER → 2025-01-29 14:10 | Outpatient (BNVA) | payer OTHER, SELFPAY | PROVIDERS: Visit Provider Internal Medicine | DX: E66.01 Morbid (severe) obesity due to excess calories (principal); I10 Essential (primary) hypertension; M48.02 Spinal stenosis, cervical region; G47.33 Obstructive sleep apnea (adult) (pediatric); G56.01 Carpal tunnel syndrome, right upper limb; G56.02 Carpal tunnel syndrome, left upper limb; N28.9 Disorder of kidney and ureter, unspecified; R73.01 Impaired fasting glucose; R79.89 Other specified abnormal findings of blood chemistry; G99.2 Myelopathy in diseases classified elsewhere; Z68.41 Body mass index [BMI] 40.0-44.9, adult; Z99.89 Dependence on other enabling machines and devices | CPT/HCPCS: 99212 ==

== ENCOUNTER 2025-03-17 10:07 | Outpatient (AMB) | payer OTHER, SELFPAY ==
--- NOTE | 2025-03-17 10:17 | MHC.OFFVIS ---
Vital Signs 03/17/25 10:18 Height 6 ft 2 in Weight 313 lb BMI 40.2 Intake Visit Reasons: OV- Painful arc syndrome of right shoulder Intake Note: Jethro is a 44 year old right hand dominant male who presents today for a follow up of his Right Shoulder. We previously ordered a C Spine MRI and referred this patient to see the Spine Clinic - he had a Right Medial Nerve Release with Dr. Prather 12/19/24. Patient rpeorts that he had a Right Carpal Tunnel Release in the right hand & he reports that this is helping his numbness and tingling. He is going to have the left done. His right shoulder pain comes and goes. His primary concern today is his left hip - he reports increasing pain with flair ups of sciatic. He reports that he is having significant personal/home life struggles which is affecting his ability to take care of problems Allergies cashew nut (CASHEW NUT) Allergy (Severe, Verified 01/29/25 14:14) ANAPHYLAXIS HPI HPI OV- Painful arc syndrome of right shoulder: Details: Jethro is a 44 year old right hand dominant male who presents today for a follow up of his Right Shoulder. We previously ordered a C Spine MRI and referred this patient to see the Spine Clinic - he had a Right Medial Nerve Release with Dr. Prather 12/19/24. Patient rpeorts that he had a Right Carpal Tunnel Release in the right hand & he reports that this is helping his numbness and tingling. He is going to have the left done. His right shoulder pain comes and goes. His primary concern today is his left hip - he reports increasing pain with flair ups of sciatic. He reports that he is having significant personal/home life struggles which is affecting his ability to take care of problems [facility] Medical History (Updated 01/29/25 @ 14:54 by Kashif Dee MD) Sleep apnea Asthma Osteoarthritis Skin lesions Morbid obesity Hypertension Surgical History Status post total hip replacement, right H/O left wrist surgery History of surgical removal of skin lesion Family History Father Diabetes Mother No problems noted. Social History (Updated 01/29/25 @ 14:49 by Kashif Dee MD) Household Members: Other Household Members Other:: sister Housing: House Housing Other:: basement apartment with walk-out door Are you a primary youth care worker to a significant other at home: No Do you presently have visiting nurse or other home services: No Alcohol intake: current Alcohol intake frequency: does not drink Comment: once a week 6 beers Patient Tobacco Use Status: Former Tobacco user Tobacco use type: Cigarette Years Smoked: 25 quit 2021 e-Cigarette/Vaping Use: Never Used Second Hand Smoke Exposure: No service: No Current occupational status: employed Current occupation: rt handed Cognitive needs: No Hearing needs: No Vision needs: No Physical Exam Vital Signs: BMI result Body Mass Index 40.2 Extrem Other: A positive impingement test on the left. Right has a negative for impingement test and is gait favors the left hip. Assessment & Plan Assessment & Plan (1) Post traumatic osteoarthritis of hip: Code(s): M16.50 - Unilateral post-traumatic osteoarthritis, unspecified hip Category: Medical Plan: Status post right hip replacement doing well. His primary complaint today is left hip pain. He does not have time to get an x-ray today but he is going to the hospital on . I would recommend x-ray and we will follow up telehealth in the afternoon. Coding Level of Care Code Est Pt Level 3 (37861) Diagnoses Post traumatic osteoarthritis of hip M16.50
[2025-03-17 10:18] VITALS: BMI 40.2
== END 2025-03-17 10:39 | disposition home or self-care (01) ==
LOC: HO.HOS 10:08
PROVIDERS: Visit Provider Orthopaedic Surgery
DX: M16.50 Unilateral post-traumatic osteoarthritis, unspecified hip (principal)
CPT/HCPCS: 99213

== ENCOUNTER → 2025-03-17 10:07 | Outpatient (BNVA) | payer OTHER, SELFPAY | PROVIDERS: Visit Provider Orthopaedic Surgery | DX: M25.511 Pain in right shoulder (principal); M16.51 Unilateral post-traumatic osteoarthritis, right hip; M25.552 Pain in left hip | CPT/HCPCS: 99212 ==